=== PATIENT | female | born 1950 | race Caucasian/White ===

== ENCOUNTER 2017-10-13 18:07 | Inpatient (IN) | payer OTHER ==
[~2017-10-13] VITALS: Ht 154.9 cm; Wt 77.1 kg
[~2017-10-13 18:07] MED LIST: BENTYL10 M1 PO; FLUOCINONIDE15 G1 TOP; HYDROXYZINE HCL25 M3 PO; PERCOCET 5-3251 EACH PO; ZOFRAN ODT4 M1 SL
--- NOTE | 2017-10-13 22:05 | ED GI/GU/ABDOMINAL COMPLAINT ---
See Addendum History of Present Illness General Chief Complaint: Abdominal Pain/Flank Pain Stated Complaint: ABD PAIN Source: patient Exam Limitations: poor historian Vital Signs & Intake/Output Vital Signs & Intake/Output Vital Signs Date Time Temp Pulse Resp B/P B/P Pulse O2 O2 Flow FiO2 Mean Ox Delivery Rate 10/16 1340 98.0 90 16 132/88 97 Room Air 10/16 0946 97.3 79 20 140/80 10/16 0609 97.3 78 18 136/74 98 Room Air 10/16 0236 97.8 79 18 139/56 94 Room Air 10/15 2338 97.5 80 20 100/51 95 Room Air 10/15 2201 67 101/50 10/15 2122 97.4 67 17 101/50 96 Room Air Allergies Coded Allergies: Sulfa (Sulfonamide Antibiotics) (Severe, ANAPHYLAXIS 08/17/17) codeine (Severe, ANAPHYLAXIS 08/17/17) penicillin G (Severe, ANAPHYLAXIS 08/17/17) adhesive tape (RASH 10/13/17) haloperidol (From HALDOL) (THROAT CLOSES 10/13/17) Uncoded Allergies: NOVASC (RASH 10/13/17) Triage Note: PT TO ED C/O POOPING "MUSH" SINCE 01/19/17. HAS CHRONIC BACK AND LEFT ARM PAIN. 'I POOP MUSH EVERY DAYS" STATES SHOULD "LIKE HELP WITH HER BOWEL PAIN" "I'M RUINNING AROUND WITH LOOSE STOOLS RUNNING OUT OF ME ALL DAY AND ALL NIGHT" "I CAN'T SLEEP" PT STATES STOOLS ARE NOT WATERY Triage Nurses Notes Reviewed? yes ? N Is pt currently ? No Onset: Gradual Duration: week(s):, constant, continues in ED, getting worse Quality/Severity: aching, dullness, severe Location: BILATERAL LOWER ABD Radiation: no radiation Activities at Onset: none HPI: Patient presents for evaluation of bilateral lower abdominal pain that began months ago. Patient states that over the past 2 weeks she has lost control of her bowels having frequent mushy stools. She denies any associated fever, cold symptoms, vomiting or dysuria. She does admit to urinary frequency. She states she had a traumatic bowel rupture last year. She states that on one other occasion her bowels protruded through the front. (Carrie GUTIÉRREZ,Dain Patel) Reconcile Medications Dicyclomine Hydrochloride (Bentyl) 10 MG CAPSULE 1 CAP PO TID PRN pain Fluocinonide 0.05 % OINT...G. 1 MARGIE TOP BID psoriasis apply to affected area(s) Hydroxyzine HCl (hydrOXYzine HCl) 25 MG TABLET 1 TAB PO QPM PRN INSOMNIA Metoprolol Tartrate 50 MG TABLET 50 MG PO BID HTN (Reported) Nitrofurantoin Monohyd/M-Cryst (Macrobid 100 MG Capsule) 100 MG CAPSULE 1 CAP PO BID uti with food Ondansetron (Zofran Odt) 4 MG TAB.RAPDIS 1 TAB SL TID PRN nausea Oxycodone HCl/Acetaminophen (Percocet 5-325 MG Tablet) 5 MG-325 MG TABLET 1 TAB PO BID PRN pain (Omar Emmanuel MD) Past History Travel History Traveled to [place] past 21 day No Medical History Any Pertinent Medical History? 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 No (Carrie GUTIÉRREZ,Dain Patel) Review of Systems Review of Systems Constitutional: Reports: no symptoms. EENTM: Reports: no symptoms. Respiratory: Reports: no symptoms. Cardiovascular: Reports: no symptoms. GI: Reports: see HPI. Genitourinary: Reports: no symptoms. Musculoskeletal: Reports: no symptoms. Skin: Reports: no symptoms. Neurological/Psychological: Reports: no symptoms. Hematologic/Endocrine: Reports: no symptoms. Immunologic/Allergic: Reports: no symptoms. All Other Systems: Reviewed and Negative (Dain Butler MD) Physical Exam Physical Exam Gastrointestinal: SEE BELOW Comments: Gen.: Well-nourished, well-developed, no acute respiratory distress. Head: Normocephalic, atraumatic. Eyes: Normal inspection bilaterally Ears: Normal inspection bilaterally Nose: Normal inspection Throat/mouth : Moist mucosa Neck: Supple, full range of motion, no goiter Heart: Regular rate and rhythm, no murmurs rubs or gallops Lungs: Clear to auscultation bilaterally with normal air entry Chest: Nontender Back: Normal range of motion Abdomen: Soft, bilateral lower quadrant abdominal tenderness with brief voluntary guarding but no rebound, normal bowel sounds, no palpable masses Extremities: Normal range of motion grossly, equal radial pulses, no cyanosis clubbing or edema Neurologic: Cranial nerves grossly intact, speech is clear Skin: warm and dry Psychiatric: Calm, cooperative, no apparent delusions or hallucinations Core Measures ACS in differential dx? No Sepsis Present: No Sepsis Focused Exam Completed? No (Carrie GUTIÉRREZ,Dain Patel) Progress Differential Diagnosis: biliary colic, bowel obstruction, diverticulitis, inflamm bowel dis, kidney stone, pancreatitis, UTI/pyelo Plan of Care: Orders Procedure Date/time Status Vital Signs 10/16 170 Active Inpt Psych Teach/Educate 10/16 170 Active Nutritional Intake, Monitor 10/16 1706 Active Inpt Psych Auricular Acupunctu 10/16 1706 Active Admit to inpatient psych 10/16 1358 Active Lab Add-on Test 10/15 1749 Active TSH REFLEX 10/14 0906 Complete Intake & Output 10/13 2237 Complete Current Medications Sig/Hanna Start time Last Medication Dose Stop Time Status Admin Lorazepam 1 MG Q6P PRN 10/16 1715 AC (Ativan) Levothyroxine Sodium 0.05 MG DAILY AC 10/16 0700 AC 10/16 (Synthroid) 0621 Quetiapine Fumarate 100 MG QPM 10/15 2200 AC 10/15 (Seroquel) 2200 Morphine Sulfate 15 MG DAILY 10/15 1000 AC 10/16 (MSIR) 0946 Gabapentin 300 MG TID 10/15 0111 AC 10/16 (Neurontin) 1630 Divalproex Sodium 500 MG TID 10/15 0107 AC 10/16 (Depakote) 1631 Clonazepam 0.5 MG TID 10/15 0106 AC 10/16 (KlonoPIN) 10/22 0105 1630 Metoprolol Tartrate 50 MG BID 10/15 0058 AC 10/16 (Lopressor) 0946 Phenazopyridine HCl 100 MG Q8 10/14 0600 AC 10/14 (Pyridium) 1407 Acetaminophen 650 MG Q4P PRN 10/14 0215 AC (Tylenol) Nitrofurantoin 100 MG BID 10/14 0206 AC 10/14 (Macrodantin 50MG 1144 Cap) 6 PM PATIENT PLACED ON PEC (Etienne GUTIÉRREZ,Soni) Initial ED EKG: none Comments: 10/13/2017 11:26:26 PM patient 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 (Carrie GUTIÉRREZ,Dain Patel) Diagnostic Imaging: Viewed by Me: CT Scan. Discussed w/RAD: CT Scan. Radiology Impression: PATIENT: SOLANGE SHELTON PRESENT AGE: 67 PATIENT ACCOUNT NO: [id number] : 50 LOCATION: [facility] ORDERING PHYSICIAN: Dain Butler MD SERVICE DATE: 10/13/17 EXAM TYPE: CAT - CT ABD & PELVIS W IV CONTRAST EXAMINATION: CT ABDOMEN AND PELVIS WITH CONTRAST CLINICAL INFORMATION: Bilateral lower abdominal pain. Tenderness. COMPARISON: CT scan pelvis August 17, 2017 TECHNIQUE: Multidetector volumetric imaging was performed of the abdomen and pelvis following IV administration of 95 mL of Optiray 320 intravenous contrast. Sagittal and coronal reformatted images were obtained on the technologist's workstation. DLP: 830.66 mGy-cm FINDINGS: LUNG BASES: The visualized lung bases are unremarkable. LIVER, GALLBLADDER, AND BILIARY TREE: The liver is normal in size, shape, and attenuation. No focal hepatic lesion or biliary ductal dilatation is present. The gallbladder is unremarkable with no evidence of radiopaque gallstones, gallbladder wall thickening, or obvious pericholecystic inflammatory changes. PANCREAS: Unremarkable. SPLEEN: Unremarkable. ADRENAL GLANDS: Unremarkable. KIDNEYS AND URETERS: The kidneys are normal in size, shape, and attenuation. No hydronephrosis, hydroureter, or calculi seen. No perinephric stranding. BLADDER: Unremarkable. GASTROINTESTINAL TRACT: Is diverticulosis of the sigmoid left colon. No diverticulitis. No acute change of the bowel. No bowel obstruction. No bowel wall thickening or edema. Moderate volume of stool throughout the colon. The appendix is not identified. There is no inflammation of the mesentery. Small bowel loops are unremarkable. ABDOMINAL WALL: Small fat-containing bilateral inguinal hernias. LYMPH NODES: Normal. VASCULAR: Atherosclerotic vascular wall calcifications throughout the abdomen and pelvis. PELVIC VISCERA: Uterus is absent. No adnexal abnormality. OSSEOUS STRUCTURES: Degenerative spondylosis of spine with multilevel disc height narrowing and endplate spurring and facet joint arthrosis. Patient's had prior thoracoplasty of L1 L3 and L4. There is compression deformities at multiple levels, L5, L2, T9, T8 and T7 . IMPRESSION: No acute change. There is diverticulosis of colon but no evidence of diverticulitis. DICTATED BY: Adrian Del Rio MD DATE/TIME DICTATED:10/14/17105 LOBBY ATTENDANT:DONYA DATE/TIME TRANSCRIBED:10/14/17105 CONFIDENTIAL, DO NOT COPY WITHOUT APPROPRIATE AUTHORIZATION. <Electronically signed in Other Vendor System> SIGNED BY: Adrian Del Rio MD 10/14/17 0114 Hand-Off Endorsed To: Soni Clifton MD Endorsed Time: 699 Pending: consult (Robert Cristobal MD) Hand-Off Endorsed To: Omar Emmanuel MD Endorsed Time: 1899 Pending: other (BED SEARCH) (Soni Clifton MD) Hand-Off Endorsed To: Gucci Martinez MD Endorsed Time: 699 Pending: other (bed search) (Omar Emmanuel MD) Hand-Off Endorsed To: Dain Butler MD Endorsed Time: 1899 Pending: other (BED SEARCH) (Gucci Martinez MD) Departure Departure Disposition: STILL A PATIENT Condition: Stable Referrals: Elis GUTIÉRREZ,Ghulam Montana (PCP/Family) Departure Forms: Customer Survey General Discharge Information (Dain Butler MD) Departure Clinical Impression Primary Impression: Abdominal pain Secondary Impressions: Psychosis, UTI (urinary tract infection) Prescriptions: Current Visit Scripts Nitrofurantoin Monohyd/M-Cryst (Macrobid 100 MG Capsule) 1 CAP PO BID #14 CAP with food Comments 10/14/17, 2am... pt with benign labs/ct scan.... on my exam, mild tenderness suprapubically with equivocal urinalysis.... discussed at length with patient. she does not wish to leave, stating that she believes something is wrong..... 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 Will consult case management and crises for eval in AM. (Levar GUTIÉRREZ,Robert Medeiros) Departure Comments 10/16/17 The patient was signed out to me. She is pending evaluation by crisis. (Dain Martin DO)
[2017-10-13 22:39] LABS: ABSOLUTE BASOPHIL COUNT 0 /CUMM (0.0-0.2); ABSOLUTE EOSINOPHIL COUNT 0.2 /CUMM (0.0-0.7); ABSOLUTE GRANULOCYTE CT 4.2 /CUMM (1.4-6.5); ABSOLUTE MONOCYTE COUNT 0.7 /CUMM (0.10-0.60); BASOPHIL % 0.5 % (0.0-2.0); EOSINOPHIL % 1.9 % (0-5); GRANULOCYTE % 47.9 % (42.2-75.2); HEMATOCRIT 40.1 % (37-47); MEAN CORPUSCULAR HGB 28.4 PG (27.0-31.0); MEAN CORPUSCULAR HGB CONC 32.3 G/DL (33.0-37.0); MEAN CORPUSCULAR VOLUME 87.9 FL (81.0-99.0); MEAN PLATELET VOLUME 8.8 FL (7.4-10.4); PLATELET COUNT 167 /CUMM (130-400); RBC DISTRIBUTION WIDTH 15.5 % (11.5-14.5); RED BLOOD CELL CT 4.56 /CUMM (4.20-5.40); WHITE BLOOD CELL COUNT 8.8 /CUMM (4.8-10.8)
[2017-10-13 22:44] LABS: ABSOLUTE LYMPH COUNT 3.7 /CUMM (1.2-3.4)
--- NOTE | 2017-10-14 01:14 | CT SCAN REPORT ---
EXAMINATION: CT ABDOMEN AND PELVIS WITH CONTRAST CLINICAL INFORMATION: Bilateral lower abdominal pain. Tenderness. COMPARISON: CT scan pelvis August 17, 2017 TECHNIQUE: Multidetector volumetric imaging was performed of the abdomen and pelvis following IV administration of 95 mL of Optiray 320 intravenous contrast. Sagittal and coronal reformatted images were obtained on the technologist's workstation. DLP: 830.66 mGy-cm FINDINGS: LUNG BASES: The visualized lung bases are unremarkable. LIVER, GALLBLADDER, AND BILIARY TREE: The liver is normal in size, shape, and attenuation. No focal hepatic lesion or biliary ductal dilatation is present. The gallbladder is unremarkable with no evidence of radiopaque gallstones, gallbladder wall thickening, or obvious pericholecystic inflammatory changes. PANCREAS: Unremarkable. SPLEEN: Unremarkable. ADRENAL GLANDS: Unremarkable. KIDNEYS AND URETERS: The kidneys are normal in size, shape, and attenuation. No hydronephrosis, hydroureter, or calculi seen. No perinephric stranding. BLADDER: Unremarkable. GASTROINTESTINAL TRACT: Is diverticulosis of the sigmoid left colon. No diverticulitis. No acute change of the bowel. No bowel obstruction. No bowel wall thickening or edema. Moderate volume of stool throughout the colon. The appendix is not identified. There is no inflammation of the mesentery. Small bowel loops are unremarkable. ABDOMINAL WALL: Small fat-containing bilateral inguinal hernias. LYMPH NODES: Normal. VASCULAR: Atherosclerotic vascular wall calcifications throughout the abdomen and pelvis. PELVIC VISCERA: Uterus is absent. No adnexal abnormality. OSSEOUS STRUCTURES: Degenerative spondylosis of spine with multilevel disc height narrowing and endplate spurring and facet joint arthrosis. Patient's had prior thoracoplasty of L1 L3 and L4. There is compression deformities at multiple levels, L5, L2, T9, T8 and T7 . IMPRESSION: No acute change. There is diverticulosis of colon but no evidence of diverticulitis.
[2017-10-14] MEDS ORDERED: MACROBID 100 M100 MG PO (02:07)
--- NOTE | 2017-10-14 16:17 | ED PSYCH CRISIS CONSULTATION ---
See Addendum Crisis Consult Basic Assessment Date of Consult: 10/14/17 Responsible Person/Accompanied By: self Insurance Authorization: Insurance #1: Insurance name: MEDICARE [facility] HMO Phone number: Policy number: [id number] Group number: [id number] Authorization number: ED Provider: Patient's ED Provider: Soni Clifton MD Primary Care Physician: Patient's PCP: Elis GUTIÉRREZ,Ghulam Montana PCP's Current Psychiatrist: Released from [facility] on 10/12/17 Chief Complaint: Psychiatric Related Complaint Patient's Quote: "I'm hurting a lot. My Bowels are broken". Present Illness: Pt is a 67 year old white female presenting to the ED initially with GI complaints. Pt stated that she took a taxi here yesterday from her hotel room. Pt was referred for a crisis psychiatric consult given her delusional presentation. Clinician attempted to contact pt's listed Julian Vizcaino [phone]. However, the mailbox was full and was unable to leave a message. Clinician was able to reach Dr. Gillis, pt's listed PCP, for collateral. Dr. Gillis explained that he has not recently seen pt but was able to give information on her recent inpatient stay at [facility]. He stated that pt was released from [facility] on 10/12/17. He explained that while there pt was delusional, disorganized and had psychosomatic complaints. He stated that she was diagnosed with Acute Schizoaffective Disorder. Dr. Gillis stated that pt 's discharge plan included follow up at [facility] in [place]. He stated that her appointment was scheduled for 10/13/17 @ 11:15 am. This clinician was unable to secure any further collateral information. Upon evaluation pt complained that she was "hurting a lot". She repeatedly stated that her "bowels were broken". She also stated many other medical complaints, ie; spinal fusion, broken arm, broken vertebrae and loss of bowel control. Pt stated that she was recently to Julian. She stated they were two weeks ago and had not yet taken a honeymoon. She claimed they live in [place]. She was unable to explain as to why he wasn't here with her, but claimed he should be here soon "because he said he would". 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 She stated she plans to go back to school to learn how to perform heart surgery on babies. When asked, pt stated that she has had seven admissions at [facility] in the past two months. She claimed they kept putting her in the "psych oliva". Pt stated that she doesn't need psychiatric treatment claiming, "I am not schizophrenic". She explained that this past admission occurred after "the [facility] program called the ambulance on her". Pt was able to recall her medications and dosages. Pt stated that she is on Depakote and Klonopin for seizures. When asked about Seroquel she stated she would not take Seroquel. She claimed she didn't need it. Pt stated that at age 44 she had a serious suicide attempt. She stated that she had suffered the loss of her father and she felt unsupported by others in her grief. Pt stated that she overdosed on sleeping pills and hoped to . However she stated that she was saved by a family member and brought to the hospital. Pt denied any other suicidal attempts. Pt also denied any current suicidal or homicidal ideations. Pt denied any significant history of substance abuse or any history of treatment. Pt was alert and oriented. She was cooperative, polite and receptive with the evaluation. She had been irritable and dismissive earlier with the medical staff. Pt presents with psychosomatic complaints and delusional mentation. Pt ambulates slowly and complains of pain. She is articulate but an unreliable informant with disorganized thoughts. Given pt's mental status she is considered gravely disabled. Pt's current needs meet an inpatient level of care which is recommended at this time. We received a faxed [facility] discharge summary from Dr. Gillis's office. Patient's Address: [address] [place] [address] Other Phone Number: Who Do You Live With? Spouse (Pt claims she lives with hari) Family/Informants Interviewed: Dr Gillis Allergies - Coded Allergies: Sulfa (Sulfonamide Antibiotics) (Severe, ANAPHYLAXIS 08/17/17) codeine (Severe, ANAPHYLAXIS 08/17/17) penicillin G (Severe, ANAPHYLAXIS 08/17/17) adhesive tape (RASH 10/13/17) haloperidol (From HALDOL) (THROAT CLOSES 10/13/17) Uncoded Allergies: NOVASC (RASH 10/13/17) Laboratory Results: Laboratory Tests 10/14/17 0906: Serum Alcohol < 10.0 10/14/17 0015: Urinalysis HEAVY H, Urine Color YEL, Urine Clarity HAZY H, Urine pH 6.5, Ur Specific [place] 1.025, Urine Protein NEG, Urine Ketones NEG, Urine Nitrite NEG, Urine Bilirubin NEG, Urine Urobilinogen 0.2, Ur Leukocyte Esterase TRACE H, Ur Microscopic SEDIMENT EXAMINED, Urine RBC RARE, Urine WBC 10-15 H, Ur Epithelial Cells MOD H, Urine Bacteria MOD H, Urine Hemoglobin NEG, Urine Glucose NEG 10/13/17 2231: Anion Gap 12, Estimated GFR > 60, BUN/Creatinine Ratio 27.5 H, Glucose 90, Calcium 8.7, Total Bilirubin < 0.1 L, AST 23, ALT 22, Alkaline Phosphatase 56, Troponin I < 0.01, Total Protein 6.9, Albumin 3.8, Globulin 3.1, Albumin/ Globulin Ratio 1.2, Amylase 54, Lipase 90, CBC w Diff NO MAN DIFF REQ, RBC 4.56, MCV 87.9, MCH 28.4, MCHC 32.3 L, RDW 15.5 H, MPV 8.8, Gran % 47.9, Lymphocytes % 41.9, Monocytes % 7.8, Eosinophils % 1.9, Basophils % 0.5, Absolute Granulocytes 4.2, Absolute Lymphocytes 3.7 H, Absolute Monocytes 0.7 H, Absolute Eosinophils 0.2, Absolute Basophils 0 (Luis Bland LPC) Current Medications - Scheduled Medications Fluocinonide 0.05 % OINT...G. 1 MARGIE TOP BID psoriasis #60 GM Prescribed by Medardo Giron on 08/17/17 Metoprolol Tartrate 50 MG TABLET 50 MG PO BID HTN #60 (Reported) Entered as Reported by Castillo Ferguson on 10/15/17 0010 Nitrofurantoin Monohyd/M-Cryst (Macrobid 100 MG Capsule) 100 MG CAPSULE 1 CAP PO BID uti #14 CAP Prescribed by Cristóbal Cristobal MD on 10/14/17 Scheduled PRN Medications Dicyclomine Hydrochloride (Bentyl) 10 MG CAPSULE 1 CAP PO TID PRN pain #12 CAP Prescribed by Medardo Giron on 08/17/17 Hydroxyzine HCl (hydrOXYzine HCl) 25 MG TABLET 1 TAB PO QPM PRN INSOMNIA #10 TAB Prescribed by Medardo Giron on 08/17/17 Ondansetron (Zofran Odt) 4 MG TAB.RAPDIS 1 TAB SL TID PRN nausea #10 TAB Prescribed by Medardo Giron on 08/17/17 Oxycodone HCl/Acetaminophen (Percocet 5-325 MG Tablet) 5 MG-325 MG TABLET 1 TAB PO BID PRN pain #10 TAB Prescribed by Medardo Giron on 08/17/17 (Verito Corrigan LCSW) Past History Past Medical History Neurological: seizure EENT: NONE Cardiovascular: hypertension Respiratory: pneumonia Gastrointestinal: NONE Hepatic: NONE Renal: NONE Musculoskeletal: chronic back pain Psychiatric: NONE Endocrine: hypothyroidism Blood Disorders: HEP A & C 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 Physical Limitations (Interventions): Pt has multiple medical complaints and heightened pain. Psychiatric Treatment History Psych Treatment Psychiatric Treatment Yes Inpatient Treatment Yes Outpatient Treatment Yes (unknown history) Location of Treatment [facility] Reason for Treatment Psychosis/delusional mentation Dates of Treatment Multiple admissions in the past few months. Response to Treatment Poor response to treatment/noncompliant. Diagnosis by History: Schizoaffective Disorder Substance Use/Abuse History Drug Use/Abuse Substances Used/Abused No Substance Abuse Treatment Substance Abuse Treatment Past Substance Abuse [place] No Inpatient Treatment No Outpatient Treatment No (Luis Bland LPC) Current Mental Status Mental Status Orientation: Person, Place, Situation Affect: Euphoric Speech: Normal Neuro-vegetative: Concentration Poor Appearance Appearance- Dress/Hygiene: Pt dressed in hospital scrubs. Hygiene appears wnl. Behaviors Thought Process: Disorganized, Irrational Thought Content: Delusions, Grandiose, Somatic Memory: Impaired Insight: Poor SI/HI Risk Assessment Past Suicidal Ideation/Attempts Yes Current Suicidal Ideation/Att No Past Homicidal Ideation/Att: No Current Homicidal Ideation/Attempts No Degree of Intent: None Danger To: gravely disabled Gravely Disabled: Lack of Insight, Poor Impulse Control, Poor Judgment Risk Factors: age (under 24/over 65), chronic/serious med cond., history of suicide atmpts, SA/MH hospitalized, isolate/no social support, limited support Lethality Ratin PTSD Checklist PTSD Done? pt unable to participate ED Management Sitter: Yes Restraints: No (Edwina ARMIJO,Luis) DSM5/PS Stressors/Medical Prob Diagnosis' (DSM 5, Stressors, Medical): F29 Unspecified Schizophrenia Spectrum and other Psychotic Disorder Current GAF: 25 (Luis Bland LPC) Departure Disposition Psych Medical Clearance Date: 10/14/17 Medically Cleared at: 1300 Time Started: 1300 Time Ended: 1400 Psychiatrist Consulted: Robert Pelayo MD Date Disposition Established: 10/14/17 Time Disposition Established: 1600 Plan for Disposition - Modality: Bed Search Rationale for Disposition: Pt presenting with grandiose/somatic delusions. Poor informant. Multiple recent hospitalizations at [facility]. Poor response to treatment and noncompliant. Considered gravely disabled. Denied suicidal/homicidal ideations. Type of IP Admission: PEC Referrals Elis GUTIÉRREZ,Ghulam Montana (PCP/Family) (Edwina ALEKSANDERLuis) Addendum Addendum SW met with the patient for the morning evaluation. The patient was lying in bed , with an irritable mood and minimal eye contact. The patient states that she came to the ED, because she has, " a broken back and ruptured bowels." She is alert and oriented, stating she is at [facility] and that it is 2017. 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 She states that she has never had any previous mental health or substance abuse treatment. She presented very guarded and did not want to disclose any information to this bid writer. She ended the evaluation by saying, " we are not getting along and you are dismissed, turn off my light on your way out!." Case discussed with Dr. Pelayo and a Geriatric bed search has been started. (Meenu CAMPA,Verito)
[2017-10-15] MEDS ORDERED: METOPROLOL TART50 M1 PO (00:10)
--- NOTE | 2017-10-15 17:44 | ED PSYCHIATRIST/APRN CONSULT ---
See Addendum Psychiatrist/SUPERVISOR [employer]OPELLANT CHARGE LOADING ED Consult Assessment and Plan: demurrage worker's note reviewed. Case discussed with bottling room worker. The patient is a 67-year-old white woman with apparent psychotic disorder. She presented to the emergency room on 10/13/17. She was recently discharged from [facility]. Home medications per patient: Neurontin 300 mg 3 times daily Lopressor 50 mg twice daily Depakote 500 mg 3 times daily Klonopin 0.5 mg 3 times daily Synthroid 50 mcg daily. Past medical history: Neuropathy, hypothyroidism, hypertension, seizure disorder. Mental status examination: Patient seen at 5:20 PM. She is an overweight white woman dressed in [facility] paper scrubs. She just got out of the bathroom. She is sitting on her bed. She is mildly agitated. There is no psychomotor retardation. Speech is normal in volume, rate and tone. Affect is irritable. Patient states that she has 3 breaks in her back and her bowels are ruptured up and down. She complains of not receiving adequate or appropriate treatment, not receiving pain relief and states that the treatment here is very poor. 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 Describes mood as very upset. Rates sad mood and anxiety both 10/10. Feels hopeless, helpless and worthless. Denies feeling guilty. Denies suicidal and homicidal ideation. Denies auditory and visual hallucinations and paranoid ideation. Patient seems paranoid and grandiose. States "I've already taken this to a Federal level, I'm not schizophrenic or psychotic." Thought processes are goal-directed. Insight and judgment are poor. The patient is oriented 3. Cognition and memory are grossly intact. States that she is tired of being quizzed. States that she is sick and needs surgery and needs pain relief. IMPRESSION: Unspecified psychosis. The patient has expressed to staff that she does not feel she needs Seroquel. There is no bed available for the patient on [facility]. We continue to conduct a bed search. Patient continues to require inpatient level of care.
--- NOTE | 2017-10-16 14:17 | IP CRISIS DIAG ASSESS PSYCH ---
Diagnostic Assessment Basic Assessment Insurance Authorization: Insurance #1: [facility] Phone number: Policy number: [id number] Group number: [id number] Authorization number: [id number] approved 3 days 10/16-10/18 with review 10/19 youth career specialist Ivone [phone] ext [phone] Primary Care Physician: Patient's PCP: Elis GUTIÉRREZ,Ghulam [place] PCP's Patient's Quote: "I'm hurting a lot. My Bowels are broken". Present Illness: Pt is a 67 year old white female presenting to the ED initially with GI complaints. Pt stated that she took a taxi here yesterday from her hotel room. Pt was referred for a crisis psychiatric consult given her delusional presentation. Clinician attempted to contact pt's listed Julian Vizcaino [phone]. However, the mailbox was full and was unable to leave a message. Clinician was able to reach Dr. Gillis, pt's listed PCP, for collateral. Dr. Gillis explained that he has not recently seen pt but was able to give information on her recent inpatient stay at [facility]. He stated that pt was released from [facility] on 10/12/17. He explained that while there pt was delusional, disorganized and had psychosomatic complaints. He stated that she was diagnosed with Acute Schizoaffective Disorder. Dr. Gillis stated that pt 's discharge plan included follow up at [facility] in [place]. He stated that her appointment was scheduled for 10/13/17 @ 11:15 am. This clinician was unable to secure any further collateral information. Upon evaluation pt complained that she was "hurting a lot". She repeatedly stated that her "bowels were broken". She also stated many other medical complaints, ie; spinal fusion, broken arm, broken vertebrae and loss of bowel control. Pt stated that she was recently to Julian. She stated they were two weeks ago and had not yet taken a honeymoon. She claimed they live in [place]. She was unable to explain as to why he wasn't here with her, but claimed he should be here soon "because he said he would". 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 She stated she plans to go back to school to learn how to perform heart surgery on babies. When asked, pt stated that she has had seven admissions at [facility] in the past two months. She claimed they kept putting her in the "psych oliva". Pt stated that she doesn't need psychiatric treatment claiming, "I am not schizophrenic". She explained that this past admission occurred after "the [facility] program called the ambulance on her". Pt was able to recall her medications and dosages. Pt stated that she is on Depakote and Klonopin for seizures. When asked about Seroquel she stated she would not take Seroquel. She claimed she didn't need it. Pt stated that at age 44 she had a serious suicide attempt. She stated that she had suffered the loss of her father and she felt unsupported by others in her grief. Pt stated that she overdosed on sleeping pills and hoped to . However she stated that she was saved by a family member and brought to the hospital. Pt denied any other suicidal attempts. Pt also denied any current suicidal or homicidal ideations. Pt denied any significant history of substance abuse or any history of treatment. Pt was alert and oriented. She was cooperative, polite and receptive with the evaluation. She had been irritable and dismissive earlier with the medical staff. Pt presents with psychosomatic complaints and delusional mentation. Pt ambulates slowly and complains of pain. She is articulate but an unreliable informant with disorganized thoughts. Given pt's mental status she is considered gravely disabled. Pt's current needs meet an inpatient level of care which is recommended at this time. We received a faxed [facility] discharge summary from Dr. Gillis's office. Patient's Address: [address] [place] [address] Other Phone Number: Who Do You Live With? Spouse (Pt claims she lives with hari) Feel Safe Where You Live? Yes Feel Safe in Your Relationship Yes Marital Status: reports Do You Have Children? No Primary Language? Nigerien Language(s) Spoken At Home: Nigerien Family/Informants Interviewed: Dr Gillis Allergies - Coded Allergies: Sulfa (Sulfonamide Antibiotics) (Severe, ANAPHYLAXIS 08/17/17) codeine (Severe, ANAPHYLAXIS 08/17/17) penicillin G (Severe, ANAPHYLAXIS 08/17/17) adhesive tape (RASH 02/06/18) haloperidol (From HALDOL) (THROAT CLOSES 10/13/17) Uncoded Allergies: NOVASC (RASH 10/13/17) Current Medications - Scheduled Medications Fluocinonide 0.05 % OINT...G. 1 MARGIE TOP BID psoriasis #60 GM Prescribed by Medardo Giron on 08/17/17 Metoprolol Tartrate 50 MG TABLET 50 MG PO BID HTN #60 (Reported) Entered as Reported by Castillo Ferguson on 10/15/17 0010 Nitrofurantoin Monohyd/M-Cryst (Macrobid 100 MG Capsule) 100 MG CAPSULE 1 CAP PO BID uti #14 CAP Prescribed by Cristóbal Cristobal MD on 10/14/17 Scheduled PRN Medications Dicyclomine Hydrochloride (Bentyl) 10 MG CAPSULE 1 CAP PO TID PRN pain #12 CAP Prescribed by Medardo Giron on 08/17/17 Hydroxyzine HCl (hydrOXYzine HCl) 25 MG TABLET 1 TAB PO QPM PRN INSOMNIA #10 TAB Prescribed by Medardo Giron on 08/17/17 Ondansetron (Zofran Odt) 4 MG TAB.RAPDIS 1 TAB SL TID PRN nausea #10 TAB Prescribed by Medardo Giron on 08/17/17 Oxycodone HCl/Acetaminophen (Percocet 5-325 MG Tablet) 5 MG-325 MG TABLET 1 TAB PO BID PRN pain #10 TAB Prescribed by Medardo Giron on 08/17/17 Past History Past Surgical History Surgical History SPINAL SUGERY HYSTERECTOMY Abuse/Trauma History Trauma History/Current Trauma: unknown Psychosocial History Strengths/Capabilities: None identified. Physical Limitations (Interventions): Pt has multiple medical complaints and heightened pain. Psychiatric Treatment History Psych Treatment Psychiatric Treatment Yes Inpatient Treatment Yes Outpatient Treatment Yes (unknown history) Location of Treatment [facility] Reason for Treatment Psychosis/delusional mentation Dates of Treatment Multiple admissions in the past few months. Response to Treatment Poor response to treatment/noncompliant. Diagnosis by History: Schizoaffective Disorder Risk Factors: age (under 24/over 65), chronic/serious med cond., history of suicide atmpts, SA/MH hospitalized, isolate/no social support, limited support Substance Use/Abuse History Drug Use/Abuse minimum 12mo Hx Substances Used/Abused No Substance Abuse Treatment Substance Abuse Treatment Past Substance Abuse TX No Inpatient Treatment No Outpatient Treatment No Education History Highest Level of Education: unknown - pt unreliable director of casework. Preferred Learning Style: experiential Current Mental Status Mental Status Orientation: Person, Place, Situation Affect: Euphoric Speech: Normal Neuro-vegetative: Concentration Poor Appearance Appearance- Dress/Hygiene: Pt dressed in hospital scrubs. Hygiene appears wnl. Behaviors Thought Process: Disorganized, Irrational Thought Content: Delusions, Grandiose, Somatic Memory: Impaired Insight: Poor SI/HI Risk Assessment - Minimum 6mo History- Past Suicidal Ideation/Attempts Yes Current Suicidal Ideation/Att No Past Homicidal Ideation/Att: No Current Homicidal Ideation/Attempts No Degree of Intent: None Danger To: gravely disabled Gravely Disabled: Lack of Insight, Poor Impulse Control, Poor Judgment Risk Factors: age (under 24/over 65), chronic/serious med cond., history of suicide atmpts, SA/MH hospitalized, isolate/no social support, limited support Lethality Ratin Needs/Init TX Plan/Goals: Psychiatric evaluation medication assessment individual, group and family meeting coordinated discharge planning AUDIT-C Questionnaire: AUDIT-C Questionnaire: Response Value ETOH use in the past year Monthly or less 1 # drinks typical/day 1 or 2 0 6 or > drinks per occasion Never 0 Total 1 DSM5/PS Stressors/Medical Prob Diagnosis' (DSM 5, Stressors, Medical): F29 Unspecified Schizophrenia Spectrum and other Psychotic Disorder Current GAF: 25 Comments: Pt discharged from [facility] 10/12/17 to a hot following inpatient treatment beginning 09/17. Pt presented to [place] ED 10/13 with several somatic complaints including bowel pain. Pt presents as iritable and gravely delusional.
[2017-10-16 20:00] VITALS: BP 132/90
[2017-10-17 07:50] VITALS: BP 141/83
--- NOTE | 2017-10-17 09:09 | CPS PROVIDER INIT ASMT PSYCH ---
Psychiatric Admission Plug Saw Operator's Note Reviewed: Yes Patient Seen and Examined: Yes Identifying Information: 67 yo MWF with unspecified psychotic disorder with recent discharge from [facility] for similar presentation, presenting to ED on 10/13/2016. Chief Complaint: "My bowels are broken." Reaction to Hospitalization: in behavioral control, refusing most medications except antihypertensives and depakote, continuing psychosis, delusional thinking and grandiosity History of Present Illness Onset of Illness: recurrent with recent admission to [facility] for similar in September Circumstances Leading to Admission: Pt was d/c to hot, failed f/u to [facility], came to ED with unfounded complaints of "broken bowel and broken arm" expecting surgery. Problem(s) Justifying Need for Admission: Tray delusions and psychosis, gravely disabled. Other HPI: please see crisis SW and ED MD consults for full HPI Past Psychiatric History Past Diagnosis(es)- if any: Unknown Past Precipitating Factors- if any: Unknown - Include inpatient and outpatient treatment Treatment History: [facility] Geropsych unit, d/c 10/13/2017 History of Suicide Attempts or Gestures Denies Substance Abuse History: Denies Allergies: Coded Allergies: Sulfa (Sulfonamide Antibiotics) (Severe, ANAPHYLAXIS 08/17/17) codeine (Severe, ANAPHYLAXIS 08/17/17) penicillin G (Severe, ANAPHYLAXIS 08/17/17) adhesive tape (RASH 10/13/17) amlodipine (RASH 10/16/17) haloperidol (From HALDOL) (THROAT CLOSES 10/16/17) Home Med List: Neurontin 300 mg po tid Lopressor 50 mg po BID for HTN Depakote 500 mg po TID, pt reports for seizures Klonopin 0.5 mg po tid Synthroid 50 mcg po daily for hypothyroid - Include any medical condition(s) that may - impact the patient's recovery/remission Past Medical History: Seizure, HTN, PNA, chronic back pain Past History Medical History Neurological: seizure EENT: NONE Cardiovascular: hypertension Respiratory: pneumonia Gastrointestinal: NONE Hepatic: NONE Renal: NONE Musculoskeletal: chronic back pain Psychiatric: NONE Endocrine: hypothyroidism Blood Disorders: HEP A & C Cancer(s): CERVICAL CA 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 Legal: Unknown Other Social History: Unknown Healthly Behaviors Screening Tobacco Screening Tobacco Use from ED Docu: Current Daily Use Daily Tobacco Use Amount/Type: => 5 Cigarettes daily - If tobacco counseling indicated - the following topics are required. - #1 Recognizing dangerous situations. - #2 Coping Skills. - #3 Basic information about quitting. Status of Tobacco Cessation Counseling: Cognitive Impairment (delusions too intense to discu) Cessation Med Status Pt Refused Cessation Meds Alcohol Screening - ETOH screen POS if BAL >=80 or Audit-C>= M4/F3 Audit-C Score from Diag Assess: 1 Blood Alcohol Level: 0.00 Alcohol Use Screening Results: Neg per Audit C &/or BAL - If ETOH counseling indicated - the following topics are required. - #1 Express concern about the patient's - drinking at unhealthy levels, include informing - of national norms for moderate drinking: - men <= 14 drinks/week, max 4 drinks/occasion - women <= 7 drinks/week, max 3 drinks/occasion - #2 Providing feedback, including linking alcohol to - negative physical effects (liver injury, hypertension) - negative emotional effects (relationship problems and - depression) - negative occupational consequences (reduced work - performance) - #3 Advising the patient to abstain from alcohol or - to drink below national norms for moderate drinking - (as listed above). Status of ETOH Use Counseling: Cognitive Impairment Metabolic Screening - Screen if on a Neuroleptic Medication - Metabolic screening should include: - Blood Pressure, BMI, Glucose or Hgb A1c, & a - Lipid profile from within the past 365 days. Metabolic Screening () Not Applicable, patient not on a neuroleptic. OR () Patient on a neuroleptic(s) . Enter below results for Hemoglobin A1C, and lipid panel if obtained during the last 365 days. BMI: 32.100 Blood Pressure: 141/83 Laboratory Results From [facility] (If applicable): pending Exam and Plan Mental Status Examination Ambulation Status: gait stable Appearance: in paper scrubs alert, aware she is on psychiatric unit, unsure of location or date, walking stiffly due to back pain Attitude towards examiner: Pleasant but resistant Psychomotor activity: Walking stiffly, no tremor, tics, stereotypy Behavior: Lying in bed in room Quality of speech: Moderate rate, rhythm, fluent, normal prosody Affect: Pleasant but dismissive Mood: "Annoyed I don't know what I'm doing here, I'm supposed to have surgery in the morning" Suicidal Ideation: Denies Homicidal Ideation: Denies Hallucinations: Denies, no apparent internal preoccupation Paranoid/Delusional Material: Frankly delusional, with somatic delusions of broken bowel and broken arm, unclear if 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 However patient feels she does not need smoking cessation because "cancer was cured in 1948, 5 seconds of an MRI will kill cancer cells, so I don't need to worry about it ever again" Difficulties with thought organization: Tangential Insight: Poor Judgment: Poor, but remaining in behavioral control on unit Orientation: Oriented to self, Unsure of place or time Cognition: Clearly intelligent Memory Function: To impaired by delusions to fully assess, however able to remember her way around the unit Estimate of intellectual functioning: Greater than average Assets/Strengths Patient Identified Assets/Strengths: In behavioral control, able to express needs Impression/Plan Impression and Plan: 67 yo MWF with unspecified schizophrenic spectrum and other psychotic disorder with recent discharge from [facility] on 10/12 for similar presentation, presenting to [facility] ED on 10/13/2016 with somatic complaints of "bowels are broken" but frankly delusional. At this time patient remains too impaired to fully engage in interview, is dismissive but pleasant. Patient has been refusing medications except for antihypertensives and Depakote, which she considers a seizure medication. It is unclear if family members have been contacted, message left for patient's was met with a full voicemail inbox. If this is a chronic course resumption of medications should be helpful. However if this is a reasonably new onset of psychosis, one must consider other etiologies. Patient does appear to have UTI but is adamantly refusing nitrofurantoin. It is possible that presentation is related to medical delirium , however it does not appear the presentation waxes and wanes but remained stable. Collateral will be castillo in understanding patient's history and treatment course. - Include all active medical diagnosis that require tx DSM 5 Diagnosis(es): Unspecified schizophrenic spectrum and other psychotic disorder - Initial Tx Plan for Active Psych & Medical Conditions Treatment Plan: -Maintain safety,VS TID, q15 min checks -Continue meds, encourage antipsychotic nitrofurantoin -Follow-up additional labs -Regular diet -Individual, family, milieu, and group therapies -Obtain collateral from family and treaters -Patient refusing NRT, cessation counseled - Factors that would help patient function - in a less restrictive setting. Factors: Psychiatric stabilization, clearing of delusions, ability to maintain safety, safe housing, outpatient follow up
--- NOTE | 2017-10-17 13:24 | SOCIAL WORKER PROG NOTE PSYCH ---
Roopa Cardoza 10/17/17 1322: Social Work Progress Note Progress Note Crisis [employer] communications intern met with patient to complete psychosocial assessment. Pt presents nonsensical and unable to accurately report information. Pt unable to paticipate in assessment at this time.
[2017-10-17 16:04] VITALS: BP 149/86
--- NOTE | 2017-10-17 16:28 | History & Physical ---
General Information and HPI MD Statement: I have seen and personally examined SOLANGE SHELTON and documented this H&P. The patient is a 67 year old F who presented with a patient stated chief complaint of Delusions Source of Information: patient Exam Limitations: no limitations History of Present Illness: 67 y/o F with pmh sig for Neuropathy, hypothyroidism, hypertension, seizure disorder, schizoaffective disorder who is admitted to Inpatient Psychiatry with delusions. Patient claims that she is having back pain and abdominal pain because her back and bowels are broken. She had an accident years ago and she sort of healed but then it started to come back. She claims that she is in excruciating pain. 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 She said that she practices at [facility]. She currently denies any urinary complaints. I have reviewed her labs. Allergies/Medications Allergies: Coded Allergies: Sulfa (Sulfonamide Antibiotics) (Severe, ANAPHYLAXIS 08/17/17) codeine (Severe, ANAPHYLAXIS 08/17/17) penicillin G (Severe, ANAPHYLAXIS 08/17/17) adhesive tape (RASH 10/13/17) amlodipine (RASH 10/16/17) haloperidol (From HALDOL) (THROAT CLOSES 10/16/17) Home Med list Dicyclomine Hydrochloride (Bentyl) 10 MG CAPSULE 1 CAP PO TID PRN pain Fluocinonide 0.05 % OINT...G. 1 MARGIE TOP BID psoriasis apply to affected area(s) Hydroxyzine HCl (hydrOXYzine HCl) 25 MG TABLET 1 TAB PO QPM PRN INSOMNIA Metoprolol Tartrate 50 MG TABLET 50 MG PO BID HTN (Reported) Nitrofurantoin Monohyd/M-Cryst (Macrobid 100 MG Capsule) 100 MG CAPSULE 1 CAP PO BID uti with food Past History Travel History Traveled to [place] past 21 day No Medical History Neurological: seizure EENT: NONE Cardiovascular: hypertension Respiratory: pneumonia Gastrointestinal: NONE Hepatic: NONE Renal: NONE Musculoskeletal: chronic back pain Psychiatric: NONE Endocrine: hypothyroidism Blood Disorders: HEP A & C Cancer(s): CERVICAL CA 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 Psychosocial History ETOH Use: denies use Illicit Drug Use: denies illicit drug use Review of Systems Review of Systems Constitutional: Reports: see HPI. EENTM: Reports: see HPI. Cardiovascular: Reports: see HPI. Respiratory: Reports: see HPI. GI: Reports: see HPI. Musculoskeletal: Reports: see HPI. Neurological/Psychological: Reports: see HPI. Exam & Diagnostic Data Last 24 Hrs of Vital Signs/I&O Vital Signs Date Time Temp Pulse Resp B/P B/P Pulse O2 O2 Flow FiO2 Mean Ox Delivery Rate 10/17 1604 63 149/86 10/17 0827 98.9 78 16 141/83 10/17 0750 98.9 78 141/83 10/16 2153 98.4 86 16 132/90 10/16 2000 98.4 86 132/90 Intake & Output 10/17 1600 10/17 0800 10/17 0000 Intake Total Output Total Balance Patient 170 lb Weight Physical Exam General Appearance Alert, No Acute Distress Skin No Rashes Neck Supple Cardiovascular Regular Rate, Normal S1, Normal S2 Lungs Clear to Auscultation Abdomen Normal Bowel Sounds, Soft Neurological Cranial Nerves II through XII: Intact Last 24 Hrs of Labs/Aram: Labs from 10/13/17: Reviewed. Assessment/Plan Assessment: 67 y/o F with pmh sig for Neuropathy, hypothyroidism, hypertension, seizure disorder, schizoaffective disorder admitted to Inpatient Psychiatry with psychosis, delusional disorder. Continue beta wan for hypertension. Thyroid function is normal. I will leave the management off psychiatric. Currently patient on Depakote for history of seizure disorder. I also see that patient is on Macrodantin and Pyridium. She did not tell me anything about urinary complaints but if it is for recurrent UTI then this should be continued. Current urinalysis is not significant. As Ranked By This Provider Problem List: 1. Abdominal pain 2. Psychosis 3. Schizo-affective psychosis 4. Hypothyroidism Miscellaneous Miscellaneous Documentation Attending Case Discussed With: Tova Bain M.D. Primary Care Physician: Elis GUTIÉRREZ,Ghulam Montnaa Patient sees these Specialists unknown Level of Patient Care: GERSON Newsome
[2017-10-17 19:57] VITALS: BP 150/93
--- NOTE | 2017-10-18 00:07 | CP SOUTH PROGRESS NOTE PSYCH ---
See Addendum Psych (Inpt) Progress Note Progress Note PROGRESS NOTE SUBJECTIVE: Patient lying in bed, irritable. Reporting that she is in the "wrong department." Patient states that she is having pain from her "fractured C5 and T2" along with her "ruptured bowel." Patient asking to be transferred to [place] to the surgical unit. Patient also states she is getting her treatment from Dr. Martínez Carmona for the last 37 years. Patient states she is 72 years old, records show she 67 years old. Patient states she gets up in the morning having to "go and go and go" and when asked if she had diarrhea patient stated script writer wasnt a "very good doctor and clearly you don't know your stuff." Tub Washer again stated that was at their estate in [place] tending the horses. Knows her 's phone number but will not give it to script writer. She states she has children but will not give any other contact information. 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 You may be dismissed now." Patient was becoming increasingly agitated at this time and discontinued conversation. OBJECTIVE: Per nursing, pt did well overnight without any acute events but remained isolative. Patient has consistently only taken Synthroid, Klonopin, morphine, pyridium and metoprolol. Last night, she took nitrofurantoin for UTI for the first time in several days. VSS. Current Medications Sig/Hanna Start time Last Medication Dose Route Stop Time Status Admin Acetaminophen 650 MG Q4P PRN 10/14 0215 AC PO Clonazepam 0.5 MG TID 10/15 0106 AC 10/18 PO 10/22 0105 0809 Dicyclomine HCl 10 MG TID PRN 10/16 1730 AC PO Diphenhydramine HCl 25 MG Q6P PRN 10/16 1800 AC PO Diphenhydramine HCl 25 MG Q6P PRN 10/16 1800 AC IM Divalproex Sodium 500 MG TID 10/15 0107 AC 10/18 PO 08 Fluocinonide 1 MARGIE BID 10/16 2200 AC TOP Gabapentin 300 MG TID 10/15 0111 AC 10/18 PO 08 Hydroxyzine HCl 25 MG QPM PRN 10/16 1745 AC PO Levothyroxine Sodium 0.05 MG DAILY AC 10/16 0700 AC 10/18 PO 0704 Lorazepam 1 MG Q6P PRN 10/16 1800 AC PO Lorazepam 1 MG Q6P PRN 10/16 1715 AC IM Metoprolol Tartrate 50 MG BID 10/15 0058 AC 10/18 PO 0809 Morphine Sulfate 15 MG DAILY 10/15 1000 AC 10/18 PO 0809 Nitrofurantoin 100 MG BID 10/14 0206 DC 10/17 PO 2134 Olanzapine 5 MG Q6P PRN 10/16 1800 AC PO Olanzapine 5 MG Q6P PRN 10/16 1800 AC IM Phenazopyridine HCl 100 MG Q8 10/14 0600 AC 10/18 PO 07 Quetiapine Fumarate 100 MG QPM 10/15 2200 AC 10/15 PO 220 Vital Signs Date Time Temp Pulse Resp B/P B/P Pulse O2 O2 Flow FiO2 Mean Ox Delivery Rate 10/18 08 98.9 64 131/72 10/18 0755 98.9 64 131/72 10/17 2134 98.4 73 16 150/93 10/17 1957 98.4 73 150/93 10/17 1604 63 149/86 10/17 08 98.9 78 16 141/83 MSE: GENERAL: Alert and oriented x3, avoidant eye contact, appropriately groomed in hospital scrubs, irritable SPEECH: Moderate rate and volume, normal prosody, staccato MOTOR: No tics, tremors, stereotypy, or abnormal movements MOOD: "I'm in pain" AFFECT: Irritated, snarky, mood congruent, constricted range, mildly labile, poorly related THOUGHT PROCESS: Perseverative THOUGHT CONTENT: No SI/HI/AVH/SIB, +grandiosity, +paranoia, +delusions COGNITION: Impaired JUDGMENT: Poor INSIGHT: Poor ASSESSMENT: 67 yo MWF with unspecified schizophrenic spectrum and other psychotic disorder with recent discharge from [facility] on 10/12 for similar presentation, presenting to [facility] ED on 10/13/2016 with somatic complaints of "bowels are broken" but frankly delusional. At this time patient remains too impaired to fully engage in interview, is dismissive but pleasant. Patient has been refusing medications except for antihypertensives and Depakote, which she considers a seizure medication. It is unclear if family members have been contacted, message left for patient's was met with a full voicemail inbox. If this is a chronic course resumption of medications should be helpful. However if this is a reasonably new onset of psychosis, one must consider other etiologies. Patient does appear to have UTI but is refusing nitrofurantoin up until last night. It is possible that presentation is related to medical delirium, however it does not appear the presentation waxes and wanes but remained stable. Collateral will be castillo in understanding patient's history and treatment course. Today, patient remains isolated in bed, angry and irritable, picking and choosing which medication she will take however did take nitrofurantoin last night. Will renew for full five-day course of antibiotic. DSM 5 Diagnosis(es): Unspecified schizophrenic spectrum and other psychotic disorder r/o Delirium Treatment Plan: -Maintain safety,VS TID, q15 min checks -Continue meds, encourage antipsychotic -reordered nitrofurantoin until 2/16 am dose for 5 day course (if she continues to take it) -TSH wnl -Regular diet -Obtain collateral from family and treaters -Patient refusing NRT d/t delusional beliefs about cancer, cessation counseled
[2017-10-18 07:55] VITALS: BP 131/72
[2017-10-18 12:16] VITALS: BP 128/67
[2017-10-18 16:02] VITALS: BP 148/75
[2017-10-18 20:09] VITALS: BP 151/72
[2017-10-19 07:52] VITALS: BP 130/69
[2017-10-19 12:07] VITALS: BP 132/80
--- NOTE | 2017-10-19 13:20 | SOCIAL WORKER PROG NOTE PSYCH ---
Social Work Progress Note Progress Note Falguni was in bed, but got up when prompted to meet. She reports she is in pain and that her neck, back, and bowels hurt. She shared that she came to the ER because her bowels are ruptured and she has a broken back and a broken arm. She doesn't believe that she needs to be on the inpatient psych unit and should be on the medical floor. She shared that she had been at [facility] in the past 2 months and that they keep admitting her to the psych unit. 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 I asked if she has been given that dx in the past? She said "there is no such thing." She stated that she lived in [place] for 22 years and came to [place] this past May. I asked if she had family in [place]? She said she does, but they don't want anything to do with her. When asked who Julian Vizcaino was? She said he was an old friend, but not her . He is listed as her on her face sheet. She said her is Ron Song and that he lives in [place]. She reported that she was recently to him a couple of weeks ago. I asked if she would sign a release for him? She said that he didn' t need to be involved. She also stated that he had visited her over the weekend , but I don't believe this to be factual. There were no noted visitors for her over the weekend. Darnell stated that she used to have a home in [place], but she left it to a grandson. She said if she were to be discharged she would go back to [place]. After her stays at [facility] inpatient she said she had been in motels and had a stay [facility]. She reports no SI/HI, no AH/ VH, denies depression or anxiety. She is clearly delusional. 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 She presented as calm, cooperative, oriented to time and place. Called [facility] and left a clinical update for continued stay [phone] ext. [phone].
--- NOTE | 2017-10-19 14:34 | CP SOUTH PROGRESS NOTE PSYCH ---
See Addendum Psych (Inpt) Progress Note Progress Note Include the following elements, when applicable: Involvement in the active treatment of the patient with behavioral observations of the patient and the patient's response to the treatment. Review of the ongoing treatment process in the context of the treatment plan. Indication of how multi-disciplinary staff members are carrying out the treatment plan. Plans for future interventions and recommendations for revision of the treatment plan. Liaison with other physicians/providers. Progress Note: Dr. Jackson's notes reviewed. Case and treatment plan discussed in team meeting. Staff reports that the patient remains delusional. I reviewed discharge summary from approximately 09/24/17 from [facility] written by Dr. Jd Valente. At the time of patient 's discharge, she was not offering spontaneous delusional material. She was taking Seroquel when she left [facility]. Patient seen this morning around 11:45 AM. She reported that the date of reported in the chart, 50 is a "false date." Claims she was given the wrong date at . Reports her real date is [birth year]. States she feels "not bad." Also reports being in a lot of pain. Reports she suffers from chronic pain and reports that her bowels are ruptured and claims that morphine 15 mg does not touch her. Reports she was prescribed this by Dr. Leon. Reports that Timothy Pulido MD had her on methadone. Patient reports that Dr. Pulido was her professor and she was his only resident thereafter. Affect is calm and euthymic. Rates pain 7.5/10. Reports she has pain at C5 and T7 due to fractures, reports she has a left arm fracture and has pain at L3-4. Rates sad mood 2/10 and anxiety 0/10. Denies feeling hopeless, helpless, worthless or guilty. Denies active and passive suicidal ideation. Denies homicidal ideation. Denies auditory and visual hallucinations and paranoid ideation. Patient is oriented 3 except she gives the date as 10/18/17. Reports sleep is very poor. Appetite and energy are described as fine. It sounds as though the patient has an affected [place]er accent. Reports she was born in [place] and that her ancestors were [place]. Patient is not willing to take Seroquel or any other antipsychotic. She states "I'm not psychotic, I'm federal GRACIE, psych MD." States she is not schizophrenic or psychotic and that there is no such thing as bipolar disorder, "it's just a label." IMPRESSION: Slow progress. Continue present treatment plan. Continues to require inpatient level of care. We need to ascertain whether the patient is homeless or not. Patient seems to be chronically delusional and may be approaching maximum hospital benefit and usual baseline. Continue Depakote as written. I have ordered a Depakote level, glycohemoglobin and lipid panel for tomorrow morning.
[2017-10-19 16:27] VITALS: BP 139/88
--- NOTE | 2017-10-19 19:44 | SOCIAL WORKER SOCIAL HX PSYCH ---
Social History Basic Assessment Insurance Authorization: Insurance #1: Insurance name: [facility] Phone number: Policy number: [id number] Group number: [id number] Authorization number: Primary Care Physician: Patient's PCP: Ghulam Gillis MD PCP's Present Problem: Pt is a 67 year old white female presenting to the ED initially with GI complaints. Pt stated that she took a taxi here yesterday from her hotel room. Pt was referred for a crisis psychiatric consult given her delusional presentation. Clinician attempted to contact pt's listed Julian Vizcaino [phone]. However, the mailbox was full and was unable to leave a message. Clinician was able to reach Dr. Gillis, pt's listed PCP, for collateral. Dr. Gillis explained that he has not recently seen pt but was able to give information on her recent inpatient stay at [facility]. He stated that pt was released from [facility] on 10/12/17. He explained that while there pt was delusional, disorganized and had psychosomatic complaints. He stated that she was diagnosed with Acute Schizoaffective Disorder. Dr. Gillis stated that pt 's discharge plan included follow up at [facility] in [place]. He stated that her appointment was scheduled for 10/13/17 @ 11:15 am. This clinician was unable to secure any further collateral information. Upon evaluation pt complained that she was "hurting a lot". She repeatedly stated that her "bowels were broken". She also stated many other medical complaints, ie; spinal fusion, broken arm, broken vertebrae and loss of bowel control. Pt stated that she was recently to Julian. She stated they were two weeks ago and had not yet taken a honeymoon. She claimed they live in [place]. She was unable to explain as to why he wasn't here with her, but claimed he should be here soon "because he said he would". 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 She stated she plans to go back to school to learn how to perform heart surgery on babies. When asked, pt stated that she has had seven admissions at [facility] in the past two months. She claimed they kept putting her in the "psych oliva". Pt stated that she doesn't need psychiatric treatment claiming, "I am not schizophrenic". She explained that this past admission occurred after "the [facility] called the ambulance on her". Pt was able to recall her medications and dosages. Pt stated that she is on Depakote and Klonopin for seizures. When asked about Seroquel she stated she would not take Seroquel. She claimed she didn't need it. Pt stated that at age 44 she had a serious suicide attempt. She stated that she had suffered the loss of her father and she felt unsupported by others in her grief. Pt stated that she overdosed on sleeping pills and hoped to . However she stated that she was saved by a family member and brought to the hospital. Pt denied any other suicidal attempts. Pt also denied any current suicidal or homicidal ideations. Pt denied any significant history of substance abuse or any history of treatment. Pt was alert and oriented. She was cooperative, polite and receptive with the evaluation. She had been irritable and dismissive earlier with the medical staff. Pt presents with psychosomatic complaints and delusional mentation. Pt ambulates slowly and complains of pain. She is articulate but an unreliable informant with disorganized thoughts. Given pt's mental status she is considered gravely disabled. Pt's current needs meet an inpatient level of care which is recommended at this time. Primary Language? Mauritanian Language(s) Spoken At Home: Mauritanian Living Situation Other Living Arrangement: no residence (living in a hotel) Feel Safe Where You Are Living Yes Feel Safe in Relationships? Yes Comments: pt discharged last week from [facility] after one month inpatient hospitalization to reside in a hotel. Pt reports she is recently but unable to provide accurate contact information to speak with her spouse. Allergies - Coded Allergies: Sulfa (Sulfonamide Antibiotics) (Severe, ANAPHYLAXIS 08/17/17) codeine (Severe, ANAPHYLAXIS 08/17/17) penicillin G (Severe, ANAPHYLAXIS 08/17/17) adhesive tape (RASH 10/13/17) amlodipine (RASH 10/16/17) haloperidol (From HALDOL) (THROAT CLOSES 10/16/17) Current Medications - Scheduled Medications Fluocinonide 0.05 % OINT...G. 1 MARGIE TOP BID psoriasis #60 GM Prescribed by Medardo Giron on 08/17/17 Metoprolol Tartrate 50 MG TABLET 50 MG PO BID HTN #60 (Reported) Entered as Reported by Castillo Ferguson on 10/15/17 0010 Nitrofurantoin Monohyd/M-Cryst (Macrobid 100 MG Capsule) 100 MG CAPSULE 1 CAP PO BID uti #14 CAP Prescribed by Cristóbal Cristobal MD on 10/14/17 Scheduled PRN Medications Dicyclomine Hydrochloride (Bentyl) 10 MG CAPSULE 1 CAP PO TID PRN pain #12 CAP Prescribed by Medardo Giron on 08/17/17 Hydroxyzine HCl (hydrOXYzine HCl) 25 MG TABLET 1 TAB PO QPM PRN INSOMNIA #10 TAB Prescribed by Medardo Giron on 08/17/17 Discontinued Medications Ondansetron (Zofran Odt) 4 MG TAB.RAPDIS 1 TAB SL TID PRN nausea #10 TAB Discontinued reason: Per Doctor Decision Oxycodone HCl/Acetaminophen (Percocet 5-325 MG Tablet) 5 MG-325 MG TABLET 1 TAB PO BID PRN pain #10 TAB Discontinued reason: Changed to different med Past History Past Medical History Neurological: seizure EENT: NONE Cardiovascular: hypertension Respiratory: pneumonia Gastrointestinal: NONE Hepatic: NONE Renal: NONE Musculoskeletal: chronic back pain Psychiatric: NONE Endocrine: hypothyroidism Blood Disorders: HEP A & C Cancer(s): CERVICAL CA 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 Physical Limitations (Interventions): Pt has multiple medical complaints and heightened pain. Psychiatric Treatment History Psych Treatment Inpatient Treatment Yes Outpatient Treatment Yes (unknown history) Location of Treatment [facility] Reason for Treatment Psychosis/delusional mentation Dates of Treatment Multiple admissions in the past few months. Response to Treatment Poor response to treatment/noncompliant. 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 Preferred Learning Style: experiential History Have You Been in The ? No Current Mental Status Mental Status Orientation: Person, Place, Situation Affect: Euphoric Speech: Normal Neuro-vegetative: Concentration Poor Appearance Appearance- Dress/Hygiene: Pt dressed in hospital scrubs. Hygiene appears wnl. Behaviors Thought Process: Disorganized, Irrational Thought Content: Delusions, Grandiose, Somatic Memory: Impaired Insight: Poor SI/HI Risk Assessment Past Suicidal Ideation/Attempts Yes Current Suicidal Ideation/Att No Past Homicidal Ideation/Att: No Current Homicidal Ideation/Attempts No Degree of Intent: None Danger To: gravely disabled Gravely Disabled: Lack of Insight, Poor Impulse Control, Poor Judgment Lethality Ratin - Conclusion and Recommendations for treatment - and discharge planning Summary: Pt currently presenting with profound delusional though process. Provided information appears to be highly unreliable. Once pt is more stable further attempt will be made to gather accurate history.
[2017-10-19 19:55] VITALS: BP 161/70
[2017-10-20 07:36] VITALS: BP 142/81
--- NOTE | 2017-10-20 10:35 | SOCIAL WORKER PROG NOTE PSYCH ---
Social Work Progress Note Progress Note Pt indicated she was to Julian, and that she wouldn't give us his phone number, but she told him to call, and she signed a release. Pt reports pain is an obstacle for her to joining groups, she was laying in bed when we met, she reports feeling tired. She reported same delusions as spoken to Claudia yesterday about being a "psych MD, GRACIE", and how her and Dr. Aguirre are very "important men, working for [employer]". I asked how can I help her today,a nd she offered "you can let me leave hospital", I informed as soon as we can coordinate with her we could prepare for her to leave the hospital, I encouragd her to provide us with his phone number.
[2017-10-20 12:01] VITALS: BP 167/85
--- NOTE | 2017-10-20 12:59 | CP SOUTH PROGRESS NOTE PSYCH ---
Psych (Inpt) Progress Note Progress Note Include the following elements, when applicable: Involvement in the active treatment of the patient with behavioral observations of the patient and the patient's response to the treatment. Review of the ongoing treatment process in the context of the treatment plan. Indication of how multi-disciplinary staff members are carrying out the treatment plan. Plans for future interventions and recommendations for revision of the treatment plan. Liaison with other physicians/providers. Progress Note: Case and treatment plan discussed in team meeting. Staff reports that patient has been observed talking to herself. Depakote level is 73.4. Patient seen at 10:27 AM. She was resting in bed but got up to me with me in office. States "well, I'm always in a lot of pain." Has no other concerns. Eager for discharge. States she plans to live in [place] or [place]. Claims to have homes in [facility] and [place], even though she was living in a hotel. States that "is [employer]." Reports she will call her and have him call us to arrange a couple's meeting. Affect is calm and euthymic. Reports mood is fine. Denies suicidal and homicidal ideation. Denies auditory and visual hallucinations and paranoid ideation. Reports she did not sleep well because her bed is atrocious. Reports appetite is very good. Energy is fine. Tolerating current medications but states she wants the correct pain medication. 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 She refuses recommendation to resume Seroquel, stating that she does need it. Patient has elevated lipids and hemoglobin A1c. Hospitalist was contacted. IMPRESSION: Slow progress. Continue present treatment plan. I suspect that the patient has approached baseline. It seems that she remains delusional. We will try to arrange a couple's meeting and outpatient follow-up. Anticipate likely discharge before the weekend.
[2017-10-20 15:42] VITALS: BP 138/76
[2017-10-20 19:54] VITALS: BP 128/67
[2017-10-21 08:08] VITALS: BP 138/84
--- NOTE | 2017-10-21 10:35 | CP SOUTH PROGRESS NOTE PSYCH ---
Psych (Inpt) Progress Note Progress Note Include the following elements, when applicable: Involvement in the active treatment of the patient with behavioral observations of the patient and the patient's response to the treatment. Review of the ongoing treatment process in the context of the treatment plan. Indication of how multi-disciplinary staff members are carrying out the treatment plan. Plans for future interventions and recommendations for revision of the treatment plan. Liaison with other physicians/providers. Progress Note: Case and treatment plan discussed in team meeting. Staff reports that the patient talks to herself. She has not been spontaneously verbalizing delusional material. Spends time in her room. Not going to groups. Reporting chronic back pain. Patient seen at 10:06 AM. She was resting in bed but got up to meet with me in office. Reports her back hurts. States she spoke with her but he said to her that she is not to give out his number. She reports that he is too important. She states that he "is" [employer] [place]. States she has 29 biologic children and 2 stepchildren. Reports her children live in [place], [place], [place], [place] and [place]. I asked her what she does for financial support and she reports she has a trust fund with many zillions of dollars. Also reports having a pension and Social Security. 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 Affect is calm and euthymic. Reports mood is just fine. Rates sad mood and anxiety both 0/10. Denies feeling hopeless, helpless, worthless or guilty. Denies suicidal and homicidal ideation. Denies auditory and visual hallucinations and paranoid ideation. Remains grandiose, as above. Reports she slept very well last night because she has a new room and a new bed. Appetite is very good. Energy is described as "very good, thank you." Reports tolerating medications but states that her pain medication is not correct. She refused to take any psychotropics except Depakote, which she states she needs for seizure disorder. Patient states she will sign release of information forms for Drs. Valente and Ashok. IMPRESSION: Slow progress. Continue present treatment plan. Remains delusional but pleasant. Refuses to take antipsychotic medication. We would like to speak with any collaterals about arranging a safe discharge plan.
--- NOTE | 2017-10-21 11:21 | SOCIAL WORKER PROG NOTE PSYCH ---
Social Work Progress Note Progress Note Called the phone number that was listed under Julian's () name on the facesheet. I only got a phone that had her voicemail. Met with Falguni in her room at bedside. She continues to complain of feeling pain. When asked where she says " my C5, T7, and my arm is broken." I asked her if she was willing to sign a release for the doctor that treated her at [place] and Dr. Timothy Hyatt (psychiatrist). She said she would sign and that she is signing in her "real name, not her fake one." I asked what her real name was ? She said Falguni Valerio. She ended up signing the release with this other name and gave a different - [birth year]. I asked when her name had changed? She said 24 years ago. When she stated someone was after her family. I acknowledged that she signed the release for Julian yesterday, but again reiterated that we needed a number to reach him. She said he is busy "providing insurance to the world" and she can't give out his number. She offered to have him call me and took my phone number. She said she should be speaking with him soon. Called [facility] and gave updated clinical. Review is on 10/23. Insurance does not believe that she is .
[2017-10-21 12:08] VITALS: BP 134/78
[2017-10-21 15:47] VITALS: BP 140/70
[2017-10-21 18:59] VITALS: BP 135/78
[2017-10-22 07:39] VITALS: BP 145/80
[2017-10-22 12:10] VITALS: BP 113/72
--- NOTE | 2017-10-22 13:06 | CP SOUTH PROGRESS NOTE PSYCH ---
Psych (Inpt) Progress Note Progress Note Include the following elements, when applicable: Involvement in the active treatment of the patient with behavioral observations of the patient and the patient's response to the treatment. Review of the ongoing treatment process in the context of the treatment plan. Indication of how multi-disciplinary staff members are carrying out the treatment plan. Plans for future interventions and recommendations for revision of the treatment plan. Liaison with other physicians/providers. Progress Note: Case and treatment plan discussed in team meeting. Staff reports that the patient holds constant conversations with herself. Frequently lies in bed talking to self. Hospitalist started atorvastatin. Often refusing macrodantin. Patient seen at 11:46 a.m. Was resting in bed prior to meeting with me in office. Claims her whole body hurts (back, arm, ankle). Reports that mentally she is doing just fine. I advised patient that she has no safe discharge plan and that we will pursue probabate commitment to a state hospital and LITIGATION EXAMINER/E + med power for conservator, unless she is willing to do these voluntarily. She isn' t. I renewed Klonopin 0.5 mg t.i.d., which . IMPRESSION: Remains pleasantly psychotic with very poor insight and judgment, rendering her gravely disabled. When I told her of our planned court filings, patient responded "I will take you to court and own you." Also stated she was firing me as her doctor.
--- NOTE | 2017-10-22 14:07 | SOCIAL WORKER PROG NOTE PSYCH ---
Social Work Progress Note Progress Note [employer] met with Falguni today in her room. She laid in bed for the duration of the conversation and made minimal eye contact with field underwriter. She reported to be feeling "not as happy as I usually am" and that she was in pain. She reported that that her childrens' attitudes were the source of her distress as they are "disrespectful, abrasive, and abusing their bodies that I gave to them". She stated that she has one grandchild from her "many" children, who is not a disappointment to her as he was [employer] validictorian, holds national records in swimming and is going to the [employer]. She stated that she raised this grandchild for the first 4 years of his life with vargas Judah Mckeon. She stated that she is no longer with Mr. Mckeon and that she has a who lives in the [place] area whose name is Julian Luo. 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 Combat Control asked her how she performs this monumental task. Falguni stated that she works for the [employer] and that she is working on getting everyone substance abuse care and coverage. Additionally, she stated that she would like to be transferred directly to [facility] so that she can get her back operated on. Falguni identified a Dr. Martínez Iglesias and his son, Will Iglesias as her orthopedic surgeons at [place]. She also stated that she would like a more comfortable bed.
[2017-10-22 15:49] VITALS: BP 120/64
[2017-10-22 19:50] VITALS: BP 135/82
[2017-10-23 07:57] VITALS: BP 130/62
--- NOTE | 2017-10-23 10:29 | CP SOUTH PROGRESS NOTE PSYCH ---
Psych (Inpt) Progress Note Progress Note Include the following elements, when applicable: Involvement in the active treatment of the patient with behavioral observations of the patient and the patient's response to the treatment. Review of the ongoing treatment process in the context of the treatment plan. Indication of how multi-disciplinary staff members are carrying out the treatment plan. Plans for future interventions and recommendations for revision of the treatment plan. Liaison with other physicians/providers. Progress Note: Case and treatment plan discussed in team meeting. Staff reports that the patient comes out of her room for meals and spends more time out on the unit in the evening. Showers rarely. I renewed morphine 15 mg po daily order, which had . Patient seen at 10:24 a.m. She was resting in bed, dressed in blue paper scrubs. Stated "I'm not well. I've told you everything. My back is broken and I prefer not to be disturbed." IMPRESSION: Slow progress. Continue present treatment plan. Patient does not have a safe discharge plan and remains gravely disabled. We will be filing for probate commitment to a state hospital and for conservatorship hearing, including medication power for conservator.
[2017-10-23 11:55] VITALS: BP 126/48
--- NOTE | 2017-10-23 13:10 | SOCIAL WORKER PROG NOTE PSYCH ---
Social Work Progress Note Progress Note Starting the process to file for involuntary commitment. All paperwork will most likely need to be submitted on Thursday, due to court being closed Thursday due to the holiday. Approached Falguni this morning, who was lying in bed. I asked if we could talk ? She said she did not want to speak to me. When asked why? She said "I'm in too much pain." I asked if I could relay some things to her? She said she would rather not right now. Called [facility] [phone]. [phone] and left updated clinical.
[2017-10-23 15:46] VITALS: BP 129/72
[2017-10-23 19:54] VITALS: BP 138/65
[2017-10-24 08:24] VITALS: BP 170/62
--- NOTE | 2017-10-24 11:22 | CP SOUTH PROGRESS NOTE PSYCH ---
Psych (Inpt) Progress Note Progress Note Include the following elements, when applicable: Involvement in the active treatment of the patient with behavioral observations of the patient and the patient's response to the treatment. Review of the ongoing treatment process in the context of the treatment plan. Indication of how multi-disciplinary staff members are carrying out the treatment plan. Plans for future interventions and recommendations for revision of the treatment plan. Liaison with other physicians/providers. Progress Note: Pt very upset this morning. She feels that she is not being treated well as the bed is uncomfortable. She spoke at length about wanting to be transferrred to [place] and not needing psychiatric care. She requested pain meds but then stated, "they don't work." Declined lidocaine patch for back pain. 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 Also, quite adamant that it is 10/21 and today is Thursday, "I'm not crazy." Denies SI or HI. Current Medications Sig/Hanna Start time Last Medication Dose Route Stop Time Status Admin Acetaminophen 650 MG Q4P PRN 10/14 0215 AC PO Atorvastatin Calcium 20 MG 1700 10/20 1700 AC 10/23 PO 1627 Clonazepam 0.5 MG TID 10/22 1600 AC 10/24 PO 10/29 1559 0854 Dicyclomine HCl 10 MG TID PRN 10/16 1730 AC PO Diphenhydramine HCl 25 MG Q6P PRN 10/16 1800 AC PO Diphenhydramine HCl 25 MG Q6P PRN 10/16 1800 AC IM Divalproex Sodium 500 MG TID 10/15 0107 AC 10/24 PO 0855 Fluocinonide 1 MARGIE BID 10/16 2200 AC TOP Gabapentin 300 MG TID 10/15 0111 AC 10/24 PO 0854 Hydroxyzine HCl 25 MG QPM PRN 10/16 1745 AC PO Levothyroxine Sodium 0.05 MG DAILY AC 10/16 0700 AC 10/24 PO 0733 Lorazepam 1 MG Q6P PRN 10/16 1800 DC PO Lorazepam 1 MG Q6P PRN 10/16 1715 DC IM Metoprolol Tartrate 50 MG BID 10/15 0058 AC 10/24 PO 0855 Morphine Sulfate 15 MG DAILY 10/24 1000 AC 10/24 PO 0854 Olanzapine 5 MG Q6P PRN 10/16 1800 AC PO Olanzapine 5 MG Q6P PRN 10/16 1800 AC IM Phenazopyridine HCl 100 MG Q8 10/14 0600 AC 10/18 PO 0704 Quetiapine Fumarate 100 MG QPM 10/15 2200 AC 10/15 PO 2200 Vital Signs Date Time Temp Pulse Resp B/P B/P Pulse O2 O2 Flow FiO2 Mean Ox Delivery Rate 10/24 0755 96.2 47 16 17062 10/24 0824 96.2 47 170/62 10/237 98.4 63 16 138/65 10/23 1954 98.4 63 138/65 10/23 1546 56 129/72 10/23 1155 52 126/48 MSE General appearance: poor hygiene and grooming; Attitude: uncooperative; Eye contact: none made; Movement: + psychomotor agitation ; Speech: nl fluency, nl rate/rhythm, nl volume, nl prosody; Mood: "upset!!!!" Affect: extremely, irritable, flat, appropriate, constricted, non-labile, congruent; Thought process: disorganized; Thought content: denied SI or HI, ++ paranoid ideation, ++ delusions; Perception: denied hallucinations- auditory, visual, does not appear to be responding to internal stimuli; I/J: very poor A/P: Pt with schizoaffective disorder with marked paranoia and delusions with limited medication compliance and not insight. - pt refused any med changes -Continue current medication regimen -Encourage integration into the milieu
[2017-10-24 12:08] VITALS: BP 168/69
[2017-10-24 15:52] VITALS: BP 133/70
[2017-10-24 19:42] VITALS: BP 144/79
[2017-10-25 08:03] VITALS: BP 134/77
[2017-10-25 11:58] VITALS: BP 120/72
--- NOTE | 2017-10-25 13:13 | CP SOUTH PROGRESS NOTE PSYCH ---
Psych (Inpt) Progress Note Progress Note Include the following elements, when applicable: Involvement in the active treatment of the patient with behavioral observations of the patient and the patient's response to the treatment. Review of the ongoing treatment process in the context of the treatment plan. Indication of how multi-disciplinary staff members are carrying out the treatment plan. Plans for future interventions and recommendations for revision of the treatment plan. Liaison with other physicians/providers. 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 Denies SI or HI. Current Medications Sig/Hanna Start time Last Medication Dose Route Stop Time Status Admin Acetaminophen 650 MG Q4P PRN 10/14 0215 AC PO Atorvastatin Calcium 20 MG 1700 10/20 1700 AC 10/24 PO 1706 Clonazepam 0.5 MG TID 10/22 1600 AC 10/25 PO 10/29 1559 0837 Dicyclomine HCl 10 MG TID PRN 10/16 1730 AC PO Diphenhydramine HCl 25 MG Q6P PRN 10/16 1800 AC PO Diphenhydramine HCl 25 MG Q6P PRN 10/16 1800 AC IM Divalproex Sodium 500 MG TID 10/15 0107 AC 10/25 PO 0837 Fluocinonide 1 MARGIE BID 10/16 2200 AC TOP Gabapentin 300 MG TID 10/15 0111 AC 10/25 PO 0837 Hydroxyzine HCl 25 MG QPM PRN 10/16 1745 AC PO Levothyroxine Sodium 0.05 MG DAILY AC 10/16 0700 AC 10/25 PO 0704 Metoprolol Tartrate 50 MG BID 10/15 0058 AC 10/25 PO 0837 Morphine Sulfate 15 MG DAILY 10/24 1000 AC 10/25 PO 0837 Olanzapine 5 MG Q6P PRN 10/16 1800 AC PO Olanzapine 5 MG Q6P PRN 10/16 1800 AC IM Phenazopyridine HCl 100 MG Q8 10/14 0600 AC 10/18 PO 0704 Quetiapine Fumarate 100 MG QPM 10/15 2200 AC 10/15 PO 2200 Vital Signs Date Time Temp Pulse Resp B/P B/P Pulse O2 O2 Flow FiO2 Mean Ox Delivery Rate 10/25 1158 53 120/72 10/25 0837 50 134/77 10/25 0803 96.7 50 134/77 10/24 2128 98.3 60 16 144/79 10/24 1941 98.3 60 144/79 10/24 1552 55 133/70 MSE General appearance: poor hygiene and grooming; Attitude: uncooperative; Eye contact: none made; Movement: + psychomotor agitation ; Speech: nl fluency, nl rate/rhythm, nl volume, nl prosody; Mood: "upset!!!!" Affect: extremely, irritable, flat, appropriate, constricted, non-labile, congruent; Thought process: disorganized; Thought content: denied SI or HI, ++ paranoid ideation, ++ delusions; Perception: denied hallucinations- auditory, visual, does not appear to be responding to internal stimuli; I/J: very poor A/P: Pt with schizoaffective disorder with marked paranoia and delusions with limited medication compliance and no insight. - Increased seroquel to 200mg qhs -Continue current medication regimen -Encourage integration into the milieu
[2017-10-25 15:28] VITALS: BP 138/84
[2017-10-25 20:08] VITALS: BP 122/67
[2017-10-26 08:15] VITALS: BP 133/74
[2017-10-26 12:00] VITALS: BP 141/67
--- NOTE | 2017-10-26 13:12 | SOCIAL WORKER PROG NOTE PSYCH ---
See Addendum Social Work Progress Note Progress Note Falguni was in her room applying lotion to her face. Asked how her weekend was? She said "it was long and boring." She stated she was hoping to leave soon. I reminded her that we were filing for an involuntary commitment hearing and that she wouldn't be leaving anytime soon. She stated "I've already been through this." She said it has happened in [place] and here. I asked if she has a watch manufacturing supervisor? She said yes. I asked who that was? She said "Nam Santana " I reiterated again if she needed a watch manufacturing supervisor one would be assigned to her from court. She got frustrated with my comment and stated again that she had a watch manufacturing supervisor and that I wasn't listening to her. She then stated she was done and didn't need my help. She then politely told me to leave her alone now and to close the door behind me. Received a voicemail that [facility] approved authorization from 10/23-10/26 with khadijah on 10/26. Called [employer] [phone] and left updated clinical for review today.
--- NOTE | 2017-10-26 14:46 | CP SOUTH PROGRESS NOTE PSYCH ---
Psych (Inpt) Progress Note Progress Note Include the following elements, when applicable: Involvement in the active treatment of the patient with behavioral observations of the patient and the patient's response to the treatment. Review of the ongoing treatment process in the context of the treatment plan. Indication of how multi-disciplinary staff members are carrying out the treatment plan. Plans for future interventions and recommendations for revision of the treatment plan. Liaison with other physicians/providers. Progress Note: Dr. Mcpherson's notes reviewed. Case and treatment plan discussed in team meeting. Staff reports that the patient appears unchanged. Seems to respond to internal stimuli. Isolates in her room. Refusing Seroquel. Patient seen at 10:28 AM. She was resting in her room but got up to me with me in office. Reports she is not feeling well, stating that her back is broken and her bowels are ruptured as always. She found the weekend to have been very boring and long. Affect is calm and blunted. Reports mood is fine. Denies suicidal and homicidal ideation. Denies auditory and visual hallucinations and paranoid ideation. Plans to continue to refuse Seroquel, stating that it is not necessary. She claims that it gives her nightmares. She is requesting Restoril 30 mg but I informed her that this is not indicated. IMPRESSION: Slow progress. Continue present treatment plan. We are pursuing probate commitment to a state hospital, hearing for conservatorship of person and estate as well as medication power for conservator of person. I have ordered a Depakote level for tomorrow morning.
--- NOTE | 2017-10-26 15:05 | IP INCIDENTAL NOTE PSYCH ---
Incidental Note Notation: E-mails without PHI sent to Drs. Valente and Ashok requesting calls to discuss case.
[2017-10-26 15:48] VITALS: BP 134/63
--- NOTE | 2017-10-26 16:39 | IP INCIDENTAL NOTE PSYCH ---
Incidental Note Notation: Case discussed with Dr. Valente.
[2017-10-26 19:53] VITALS: BP 111/68
[2017-10-27 07:48] VITALS: BP 119/57
--- NOTE | 2017-10-27 10:35 | SOCIAL WORKER PROG NOTE PSYCH ---
Social Work Progress Note Progress Note Spoke with Indira Bojorquez at [place] this morning. Informed her paperwork will be submitted for involuntary commitment today. Also shared that we will be filing for conservatorship and with med power. She is under the impression that the med power can't be filed until the day of the conservatorship hearing. Falguni remains isolative in her room. Approached her this morning to ask how she is doing? She said "I don't want to talk." She said she was feeling "horrible" but didn't elaborate on what was going on with her. She laid flat on her back in bed and stated she would like me to leave. I told her if she had a concern or question about anything she could let me know. I then left the room.
--- NOTE | 2017-10-27 11:23 | CP SOUTH PROGRESS NOTE PSYCH ---
Psych (Inpt) Progress Note Progress Note Include the following elements, when applicable: Involvement in the active treatment of the patient with behavioral observations of the patient and the patient's response to the treatment. Review of the ongoing treatment process in the context of the treatment plan. Indication of how multi-disciplinary staff members are carrying out the treatment plan. Plans for future interventions and recommendations for revision of the treatment plan. Liaison with other physicians/providers. Progress Note: Case and treatment plan discussed in team meeting. Lab Valproic Acid 68.7 ug/mL 10/27/17 0630 Patient seen at 10:42 AM. She was resting in bed. Appearing awake and alert. Refused to meet with me, stating she never would do so. She is aware that we are filing for probate commitment and conservatorship hearings. She made an obscure reference to the fact that she has already been the federal court. Dr. Rosangela Pulido called me back and reported having no recollection of this patient. IMPRESSION: Slow progress. Continue present treatment plan. I completed physician's evaluation for application to court for appointment of a conservator of person and estate. Patient continues to refuse Seroquel, ordered at 200 mg nightly.
[2017-10-27 12:23] VITALS: BP 124/53
--- NOTE | 2017-10-27 13:18 | IP INCIDENTAL NOTE PSYCH ---
Incidental Note Notation: Dr. Pulido called me. He has no recollection of this patient.
[2017-10-27 15:30] VITALS: BP 127/67
[2017-10-27 19:55] VITALS: BP 142/74
[2017-10-28 07:40] VITALS: BP 142/82
--- NOTE | 2017-10-28 10:37 | CP SOUTH PROGRESS NOTE PSYCH ---
Psych (Inpt) Progress Note Progress Note Include the following elements, when applicable: Involvement in the active treatment of the patient with behavioral observations of the patient and the patient's response to the treatment. Review of the ongoing treatment process in the context of the treatment plan. Indication of how multi-disciplinary staff members are carrying out the treatment plan. Plans for future interventions and recommendations for revision of the treatment plan. Liaison with other physicians/providers. Progress Note: Case and treatment plan discussed in team meeting. Staff reports that the patient essentially spends all her time in her room. Refusing pyridium and Seroquel. Patient seen at 10:04 a.m. Refused group when staff inquired. Stated "I won't speak to you either. You are excused and fired." IMPRESSION: Slow progress. Continue present treatment plan. We are pursuing probate commitment to a state hospital and appointment of a RIB BUILDER/E + med power for RIB BUILDER. Continues to have poor insight and judgment and remains gravely disabled. Continues to require inpatient level of care.
--- NOTE | 2017-10-28 10:57 | SOCIAL WORKER PROG NOTE PSYCH ---
Social Work Progress Note Progress Note Babbitt Spinner attempted to meet with Falguni today in her room. Falguni stated that she did not want to talk and that she wished to be left alone. Babbitt Spinner asked patient if there was anything that she needed, to which Falguni replied "I need to be discharged". Babbitt Spinner stated that she would come back later during the afternoon to check on Falguni. Falguni stated, "Don't bother, I'm going to be the same, which is awful. I just want to be discharged."
[2017-10-28 11:57] VITALS: BP 135/64
--- NOTE | 2017-10-28 14:53 | SOCIAL WORKER PROG NOTE PSYCH ---
Social Work Progress Note Progress Note The came to serve Falguni paperwork regarding the involuntary commitment hearing. I told Falguni that the digital media associate was here to give her information about the court hearing. She said she was not getting up and she didn't care what he had to say. She refused to leave her bed. I informed the digital media associate, who then decided to give me the paperwork. I told Falguni that her court hearing was scheduled for 11/05 at 10:30. She said ok and then proceeded to ask me if I had a cigarette? I told her I don't smoke. She said "Ok, please leave and shut the door."
[2017-10-28 15:36] VITALS: BP 143/83
[2017-10-28 21:07] VITALS: BP 143/68
[2017-10-29 00:54] VITALS: BP 137/82
[2017-10-29 11:08] VITALS: BP 118/55
--- NOTE | 2017-10-29 11:30 | SOCIAL WORKER PROG NOTE PSYCH ---
Social Work Progress Note Progress Note Paperwork for conservator of person and estate was completed and brought to the mailroom to be delivered to [facility] Court today. Talked to Indira Bojorquez at [facility] she said she would probably end up having the hearing for the week of .
[2017-10-29 11:54] VITALS: BP 118/55
--- NOTE | 2017-10-29 12:01 | RADIOLOGY REPORT ---
EXAMINATION: XR HUMERUS, LEFT CLINICAL INFORMATION: Status post fall with pain in the left humerus. COMPARISON: There are no prior studies for comparison. TECHNIQUE: AP and lateral views of the left humerus. FINDINGS: The imaging is suboptimal with underpenetration which could obscure small or subtle cortical defects. The glenohumeral and acromioclavicular alignment appear to be maintained. The alignment of the elbow joint is suboptimally visualized, however no evidence of subluxation is noted. The proximal portion of the forearm is not well evaluated. No cortical defects are noted throughout the left humerus to suggest acute fracture. IMPRESSION: No radiographic evidence of acute fracture is is noted at this time, throughout the left humerus.
--- NOTE | 2017-10-29 14:18 | Event Note ---
Event Note Event Note: I was called to evaluate the patient because she was complaining of pain in her left arm after she fell. Nursing staff concern if she has any broken bone. X- ray of the left humerus was ordered which is negative for any fracture. I went in to see the patient but she completely refused to be seen. She did not allow me to examine her left arm. She does not believe that x-rays telling the truth. Patient did not allow me to examine her at this time.
--- NOTE | 2017-10-29 14:43 | SOCIAL WORKER PROG NOTE PSYCH ---
Social Work Progress Note Progress Note Basin Tender called [facility] ext. [phone] and left updated clinical for review today. Basin Tender attempted to meet with Falguni but was sent away as she did not wish to speak with procedure writer. Update: Willa from [employer] called back and authorized Falguni's stay through November 01. The review will be due on Thursday, 11/02. Marcela from [employer] will be taking over the case for Willa and will call Claudia Byrd on Thursday for the review. The confirmation number is: [id number].
--- NOTE | 2017-10-29 14:57 | CP SOUTH PROGRESS NOTE PSYCH ---
Psych (Inpt) Progress Note Progress Note Include the following elements, when applicable: Involvement in the active treatment of the patient with behavioral observations of the patient and the patient's response to the treatment. Review of the ongoing treatment process in the context of the treatment plan. Indication of how multi-disciplinary staff members are carrying out the treatment plan. Plans for future interventions and recommendations for revision of the treatment plan. Liaison with other physicians/providers. Progress Note: Case and treatment plan discussed in team meeting. Patient's probate commitment hearing is scheduled for 11/05/17 at 10:30 AM. Patient reportedly fell during the night. She was incontinent of urine. She refuses to participate in her treatment here. Patient seen at 10:25 AM. States she feels terrible. She is resting in bed. States she broke her left arm last night. Reports she fell over. Also reports she broke C5 and T4. "Broke it all and I need to get out here." Claims she needs Dilaudid 4 mg she wants discharge. Affect is irritable and angry. Stated to me that I was excused and fired and then called me an ae. Arm x-ray was done today and was reported to be negative. IMPRESSION: Slow progress. Continue present treatment plan. Await outcome of probate commitment hearing 11/05/17. Patient remains delusional. She has poor insight and judgment and remains gravely disabled. Await conservatorship hearings as well.
[2017-10-29 16:17] VITALS: BP 138/58
[2017-10-29 22:25] VITALS: BP 144/71
[2017-10-30 10:05] VITALS: BP 150/80
--- NOTE | 2017-10-30 10:29 | SOCIAL WORKER PROG NOTE PSYCH ---
Social Work Progress Note Progress Note Falguni was laying in bed at 10am. I asked how her arm was and told her that I heard she had an x-ray yesterday. She said that her arm is "fractured in 12 places." I told her that the x-ray didn't indicated a fracture, but I was sorry that her arm was hurting her. She said she is tired of being in this dump of a hospital and that no one is listening to her. I asked where she would go if she were to leave? She said she would go to [place] or [place]. 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 She then asked me to stop talking to her. Called Vicky Hand at [facility] and left a message in regards to Falguni.
--- NOTE | 2017-10-30 13:52 | CP SOUTH PROGRESS NOTE PSYCH ---
Psych (Inpt) Progress Note Progress Note Include the following elements, when applicable: Involvement in the active treatment of the patient with behavioral observations of the patient and the patient's response to the treatment. Review of the ongoing treatment process in the context of the treatment plan. Indication of how multi-disciplinary staff members are carrying out the treatment plan. Plans for future interventions and recommendations for revision of the treatment plan. Liaison with other physicians/providers. Progress Note: Case and treatment plan discussed in team meeting. Staff reports that the patient can be quite rude to staff. Described as irritable. Whereas arm x-ray was negative, patient reportedly is convinced that she broke her arm in 12 places and that we are lying to her. Patient seen at 10:27 AM. She was resting or sleeping in her room. She said "get out of here, leave me alone." Affect is irritable. Insight and judgment remain poor. IMPRESSION: Slow progress. Continue present treatment plan. Remains gravely disabled. Probate commitment hearing is scheduled for 11/05/17 at 10:30 AM. We have filed application for conservatorship of person and estate and also medication power for conservator.
[2017-10-30 15:50] VITALS: BP 149/90
[2017-10-30 20:02] VITALS: BP 122/57
[2017-10-31 07:55] VITALS: BP 136/94
--- NOTE | 2017-10-31 10:38 | CP SOUTH PROGRESS NOTE PSYCH ---
Psych (Inpt) Progress Note Progress Note Include the following elements, when applicable: Involvement in the active treatment of the patient with behavioral observations of the patient and the patient's response to the treatment. Review of the ongoing treatment process in the context of the treatment plan. Indication of how multi-disciplinary staff members are carrying out the treatment plan. Plans for future interventions and recommendations for revision of the treatment plan. Liaison with other physicians/providers. Progress Note: Chart reviewed. Progress discussed with nursing staff. Interviewed patient this morning in her room. Consistent with my reading of previous notes, she was perseverative on arm pain, stating that she had broken her arm in multiple places. She also notes that she had "ruptured bowels ". I attempted to reassure her that there was no suggestion of any acute medical problems, she replied that she required "Dilaudid 4 mg IV with saline, or methadone 60 mg daily ". I informed her that I would be unable to provide her these doses of medications, to which she replied "then I have no further use for you and you are dismissed". She did however state she had no suicidal or homicidal ideation. Vital signs were reviewed and are within normal limits. No new laboratory results today. Mental status exam: female older than apparent stated age resting comfortably on hospital bed. Poor eye contact. Positive psychomotor slowing. No abnormal movements noted. Speech was quiet, otherwise within normal limits. Mood was "I'm in pain ". Affect was constricted, irritable. Thought process was perseverative. Content focused on pain and somatic complaints. Denies SI or HI. Denies perceptual disturbances. Cognition was grossly intact. Insight and judgment are limited. A/P: Continues to make slow progress. Continue present treatment plan. Remains gravely disabled. Probate commitment hearing is scheduled for 11/05/17 at 10:30 AM. We have filed application for conservatorship of person and estate and also medication power for conservator.
[2017-10-31 12:28] VITALS: BP 135/58
[2017-10-31 16:00] VITALS: BP 137/37
[2017-10-31 21:17] VITALS: BP 141/67
[2017-11-01 12:02] VITALS: BP 132/53
--- NOTE | 2017-11-01 12:30 | CP SOUTH PROGRESS NOTE PSYCH ---
Psych (Inpt) Progress Note Progress Note Include the following elements, when applicable: Involvement in the active treatment of the patient with behavioral observations of the patient and the patient's response to the treatment. Review of the ongoing treatment process in the context of the treatment plan. Indication of how multi-disciplinary staff members are carrying out the treatment plan. Plans for future interventions and recommendations for revision of the treatment plan. Liaison with other physicians/providers. Progress Note: Chart reviewed. Progress discussed with nursing staff. Interviewed patient this morning in her room. Increasingly pleasant compared to yesterday, however remains quite densely delusional. Remains fixated on her arm "being broken and 12 places ", as well as "ruptured bowels". I attempted to work with her to state that I would like to control her pain from her arm, however, there is no indication that her arm is actually fractured. She was unable to work with this information, and kindly asked me to leave. She denied any other concerns, and denies SI or HI. Vital signs were reviewed and are within normal limits. No new laboratory results today. Mental status exam: female older than apparent stated age resting comfortably on hospital bed. Poor eye contact. Positive psychomotor slowing. No abnormal movements noted. Speech was quiet, otherwise within normal limits. Mood was "my arm still hurts ". Affect was constricted, irritable. Thought process was perseverative. Content focused on pain and somatic complaints. Positive somatic delusions. Denies SI or HI. Denies perceptual disturbances. Cognition was grossly intact. Insight and judgment are limited. A/P: Continues to make slow progress. Delusions remain prominent. Continue present treatment plan. Remains gravely disabled. Probate commitment hearing is scheduled for 11/05/17 at 10:30 AM. We have filed application for conservatorship of person and estate and also medication power for conservator.
[2017-11-01 15:56] VITALS: BP 139/72
[2017-11-01 19:50] VITALS: BP 144/53
[2017-11-02 07:38] VITALS: BP 116/65
[2017-11-02 12:06] VITALS: BP 130/84
--- NOTE | 2017-11-02 12:58 | SOCIAL WORKER PROG NOTE PSYCH ---
Social Work Progress Note Progress Note Received a call from Susan at [facility] that she is covering for Willa. She gave 2 additional days with review due back with Willa on 11/04/16. Saw Falguni in her room around 3:40pm. I told her it was nice to see her around the unit a little more today. Asked why she didn't go to group? She said she doesn't go to art group. Asked how she was doing and how he weekend was? She said "it was boring as usual." She then stated she wanted to leave. I told her we have the hearing on 11/05. She said she wasn't having a hearing and that she was discharging today. She went to say that she had sued and won. She then thanked me and basically politely excused me from her room.
--- NOTE | 2017-11-02 13:49 | CP SOUTH PROGRESS NOTE PSYCH ---
Psych (Inpt) Progress Note Progress Note Include the following elements, when applicable: Involvement in the active treatment of the patient with behavioral observations of the patient and the patient's response to the treatment. Review of the ongoing treatment process in the context of the treatment plan. Indication of how multi-disciplinary staff members are carrying out the treatment plan. Plans for future interventions and recommendations for revision of the treatment plan. Liaison with other physicians/providers. Progress Note: Dr. Wasserman' notes reviewed. Case and treatment plan discussed in team meeting. Staff reports that the patient seems a little better. Came out of her room for medications. Ate. Refuses Seroquel, Lidex and pyridium. Reports pain 10/10 at "broken arm" and neck. Patient seen at 1:01 pm. Patient was sitting quietly by the fish tank. Dressed in blue paper scrubs. I asked if she would meet with me and she responded "about what?" I answered that I am her doctor and she replied "but you're not a doctor." Later came to office and stated she is ready to go. I reminded her about hearings and she replied "there is no hearing." IMPRESSION: Slow progress. Continue present treatment plan. Remains gravely disabled. Awaiting hearings.
[2017-11-02 16:13] VITALS: BP 140/76
[2017-11-03 07:50] VITALS: BP 164/77
--- NOTE | 2017-11-03 10:44 | SOCIAL WORKER PROG NOTE PSYCH ---
Social Work Progress Note Progress Note Falguni was laying in be around 10:30am. Refused to get up and be on the unit. Asked again if there is anyone she would like me to reach out to? She said no. I asked if she had children? She said "I have many." I asked if they lived around here? She said no. I asked again can I reach out to someone for her? She said "I have no one." She then said "I just want to go home." I asked where home was? She said "[place]." She then asked me to leave. Encouraged her to spend time on the unit. Called [place] [facility]. Requested the doctor's independent evaluations for the upcoming hearing on 11/05. Both were faxed to me. They both indicate that she is gravely disabled. One evaluation indicates that she is also a danger to herself and others.
--- NOTE | 2017-11-03 11:45 | CP SOUTH PROGRESS NOTE PSYCH ---
Psych (Inpt) Progress Note Progress Note Include the following elements, when applicable: Involvement in the active treatment of the patient with behavioral observations of the patient and the patient's response to the treatment. Review of the ongoing treatment process in the context of the treatment plan. Indication of how multi-disciplinary staff members are carrying out the treatment plan. Plans for future interventions and recommendations for revision of the treatment plan. Liaison with other physicians/providers. Progress Note: Case and treatment plan discussed in team meeting. Staff reports that the patient is a little more visible in the milieu. Refuses groups. Still isolates in her room. Patient seen at 10:14 AM. She was asleep in bed. Stated "I'm not well." She is dismissive, stating "I don't want to talk to you." IMPRESSION: Slow progress. Continue present treatment plan. Probate commitment hearing is scheduled for 11/05/17 at 10:30 AM. We are awaiting scheduling of conservatorship hearings. The patient remains gravely disabled and is not able to function independently in the community.
[2017-11-03 11:50] VITALS: BP 132/71
[2017-11-03 16:05] VITALS: BP 140/72
[2017-11-03 20:02] VITALS: BP 139/67
[2017-11-03 21:32] VITALS: BP 136/67
[2017-11-04 08:18] VITALS: BP 171/94
--- NOTE | 2017-11-04 10:36 | SOCIAL WORKER PROG NOTE PSYCH ---
Social Work Progress Note Progress Note Falguni was seen coming out of the bathroom this morning seen carrying her toothbrush and hair was wet and combed back. We talked about the hearing tomorrow. She continues to say it's unnessecary and that she has already won. I told her that her painting department supervisor will be meeting with her prior to the hearing. She stated she already has an painting department supervisor "Nam Santana Jr." I reiterated again, that the hearing is 10:30am tomorrow and she will have an painting department supervisor that will see her. She told me that we are all being sued, every single one of us. Called Willa at [facility] to leave updated clinical.
[2017-11-04 11:57] VITALS: BP 127/51
[2017-11-04 15:46] VITALS: BP 124/92
--- NOTE | 2017-11-04 15:49 | CP SOUTH PROGRESS NOTE PSYCH ---
Psych (Inpt) Progress Note Progress Note Include the following elements, when applicable: Involvement in the active treatment of the patient with behavioral observations of the patient and the patient's response to the treatment. Review of the ongoing treatment process in the context of the treatment plan. Indication of how multi-disciplinary staff members are carrying out the treatment plan. Plans for future interventions and recommendations for revision of the treatment plan. Liaison with other physicians/providers. Progress Note: Case and treatment plan meeting. According to staff, patient reports having broken bones. Isolative and withdrawn. Rarely showers. Patient seen at 11:04 AM. She was resting in bed. She was willing to be interviewed today. Feels bored. Mood: "I'm bored." Rates sad mood and anxiety both 0/10. Denies feeling hopeless, helpless, worthless or guilty. Denies suicidal and homicidal ideation. Denies auditory and visual hallucinations and paranoid ideation. Reports sleep is all right. Describes appetite and energy as fine. I asked how she is tolerating her medications, and she responded that she is in pain and she claims she is not receiving the correct pain medication. She is aware of probate commitment hearing scheduled for tomorrow. States that she has secured as accounts adjustable clerk Nam Santana Jr. and his father, Nam Santana. When I addressed her as John, she responded that she is Dr. Shaw. IMPRESSION: Slow progress. Continue present treatment plan. Patient remains gravely disabled. In my opinion, the patient's grave disability renders her unable to give informed consent about psychiatric medication. We are pursuing a hearing for medication power for conservator, once a conservator is appointed.
[2017-11-04 21:12] VITALS: BP 164/72
[2017-11-05 07:43] VITALS: BP 131/70
--- NOTE | 2017-11-05 11:08 | SOCIAL WORKER PROG NOTE PSYCH ---
Social Work Progress Note Progress Note Received a voicemail from [facility] that Falguni was approved 2 days with review again today 11/05. Involuntary Commitment Hearing held today for Falguni. Falguni was appointed Site[employer] Developer Chuy Farris. She did meet with him prior to the hearing. She came to the hearing willingly. Testimony was given by Dr. Pelayo, this mortgage underwriter, and Arlene (charge nurse). Falguni made her own statement which basically said she didn't see the need to provide anyone here her personal information and that she just wants to get on with her life and go to [facility] for her surgery. 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 Director Decision Support Beto from [place] [facility] found the patient to be gravely disabled and that she should be [facility] a [facility]. Falguni had no response after the Director Decision Support's decision and quietly got up and walked out. [facility] informed met that the conservatorship hearing will be 11/19 and that we can pursue the involuntary med power hearing right after the conservatorship hearing the same day. Called Vicky Hand at [facility] to collaborate on this case. Asked about geriatric beds at [facility]. Vicky referred me to just do the [facility] application. She wasn't aware of how long a wait it may be. Called Willa at [facility] and left updated clinical information.
--- NOTE | 2017-11-05 11:14 | CP SOUTH PROGRESS NOTE PSYCH ---
Psych (Inpt) Progress Note Progress Note Psychiatric Evaluation Date of Evaluation: 11/04/2017 Reason for Evaluation: A second opinion regarding involuntary medication and commitment to a state psychiatric facility Sources of Information: 1) The identified patient (interviewed on 11/04/2017 in her room on the inpatient psychiatric unit of [facility]) 2) The patient's electronic health record which included the notes of the patient's attending psychiatrist, Dr. Robert Pealyo MD 3) The notes of the patient's social work job titles on the inpatient psychiatric unit, Claudia Byrd LCSW 4) The Crisis Intervention's clinician's assessment signed by Andrew Arredondo LCSW, dated 10/16/2017 5) Psychiatrist Dr. Jennifer Jackson MD's notes from 10/17/17 and 10/18/2017 6) Psychiatrist Dr. Manpreet Mcpherson MD's notes from 10/24/17 and 10/25/2017 7) The notes of Dr. 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 I believe, with reasonable degree of medical certainty, that the identified patient that WITHOUT ANTIPSYCHOTIC MEDICATION the identified patient's condition will very likely continue in it current deteriorated state (the deterioration has already resulted in significant impairments to the degree that the patient has become no-functional and gravely impaired0 I believe, with reasonable degree of medical certainty, that the patient is not a direct threat to self, but will suffer irreprable harm thought indirect harm because of severe impairment in judgment and severe impairment in reality assessment which may result in putting self -unintentially-in harms' way ( exposure, starvation, and predation/assault by others)
[2017-11-05 12:38] VITALS: BP 126/50
[2017-11-05 15:57] VITALS: BP 114/52
--- NOTE | 2017-11-05 17:15 | CP SOUTH PROGRESS NOTE PSYCH ---
Psych (Inpt) Progress Note Progress Note Include the following elements, when applicable: Involvement in the active treatment of the patient with behavioral observations of the patient and the patient's response to the treatment. Review of the ongoing treatment process in the context of the treatment plan. Indication of how multi-disciplinary staff members are carrying out the treatment plan. Plans for future interventions and recommendations for revision of the treatment plan. Liaison with other physicians/providers. Progress Note: Case and treatment plan discussed in team meeting. Patient's probate commitment hearing was scheduled for 10:30 AM. Patient seen at 10:14 AM. She is resting in bed, dressed in blue scrubs. She appears calm. Feels fine. Has no questions for me. Reports she plans to move to [place] with her . Mood is fine. States she is not sad at all. Denies feeling anxious. Denies suicidal and homicidal ideation. Denies auditory and visual hallucinations and paranoid ideation. Describes sleep, appetite and energy as fine. Refuses recommendation for an antipsychotic, stating that she does not need one. I attended probate commitment hearing at 10:[address] Pérez ruled for probate commitment to [facility] or alternate state facility. IMPRESSION: Slow progress. Continue present treatment plan. Patient remains gravely disabled and has been probate committed. We will work on placement at a state facility. We have filed petitions for hearings for conservator of person and estate as well as medication power for conservator of person.
[2017-11-05 21:22] VITALS: BP 125/56
[2017-11-06 08:09] VITALS: BP 138/88
--- NOTE | 2017-11-06 09:06 | SOCIAL WORKER PROG NOTE PSYCH ---
Social Work Progress Note Progress Note Received a call from Willa at [facility] who informed me that they are requesting a peer review today for continued stay. Received a call from Roseanne at [facility] that the peer review will be scheduled for 11/09 @ 10am with a Dr. Thornton. The doctor will call Dr. Pelayo at the nurses station. Spoke with Indira Bojorquez at [place] [facility]. She advised me to fax over the paperwork regarding authority to consent psychiatric medications and mail out the original. The proposed conservator will be Air Defence Officer Josh Gaines. Faxed paperwork over to court. A tower helper arrived to serve Falguni about the conservatorship hearing. Falguni was visible to the tower helper. I was present and accepted the paperwork for her chart. I explained to Falguni that we were having a hearing for conservatorship. I asked if she understood what that meant? She said she did and that she doesn't agree to it and would never sign for it. I told her that the court would be assigning an real estate associate attorney as the conservator. She stated again that she doesn't agree and asked if that was all I wanted to talk to her about? I told her that I wanted her to be informed of what was going on. She thanked me and walked away.
[2017-11-06 12:05] VITALS: BP 127/62
--- NOTE | 2017-11-06 14:13 | CP SOUTH PROGRESS NOTE PSYCH ---
Psych (Inpt) Progress Note Progress Note Include the following elements, when applicable: Involvement in the active treatment of the patient with behavioral observations of the patient and the patient's response to the treatment. Review of the ongoing treatment process in the context of the treatment plan. Indication of how multi-disciplinary staff members are carrying out the treatment plan. Plans for future interventions and recommendations for revision of the treatment plan. Liaison with other physicians/providers. Progress Note: Case and treatment plan discussed in team meeting. There will be a doc-to-doc review with the insurance company on 11/09/17, at 10 AM. Staff reports that the patient spent most of last evening in bed. bed worker has contacted Jojo Maloney of [facility] [employer] about commitment decree. Patient seen at 11:39 AM. She was resting in bed. Refused to meet with me in office. She stated "I just don't like you and don't want to talk to you. 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 I don't believe you did a day of school at all and you're a liar." IMPRESSION: Slow progress. Continue present treatment plan. Patient remains gravely disabled. She is not engaging in treatment here. We are working on placing the patient at [facility] or [facility]. We are awaiting scheduling of conservatorship hearing as well as medication power for conservator hearing. Patient has no insight and poor judgment.
[2017-11-06 15:55] VITALS: BP 136/63
[2017-11-06 20:34] VITALS: BP 142/62
[2017-11-07 07:53] VITALS: BP 131/69
--- NOTE | 2017-11-07 10:20 | CP SOUTH PROGRESS NOTE PSYCH ---
Psych (Inpt) Progress Note Progress Note Include the following elements, when applicable: Involvement in the active treatment of the patient with behavioral observations of the patient and the patient's response to the treatment. Review of the ongoing treatment process in the context of the treatment plan. Indication of how multi-disciplinary staff members are carrying out the treatment plan. Plans for future interventions and recommendations for revision of the treatment plan. Liaison with other physicians/providers. Progress Note: Pt notes that she is "alright" this morning. Wants increased benadryl for sleep. Discussed risk of benadryl with older adults and recommended melatonin. She then spoke at length about feeling as though she does not need to be hospitalized. In addition, she commented on her bordem. Denies SI or HI. Current Medications Sig/Hanna Start time Last Medication Dose Route Stop Time Status Admin Acetaminophen 650 MG Q4P PRN 10/14 0215 AC PO Atorvastatin Calcium 20 MG 1700 10/20 1700 AC 11/06 PO 1702 Clonazepam 0.5 MG TID 10/29 2200 AC 11/07 PO 11/12 2158 0754 Dicyclomine HCl 10 MG TID PRN 10/16 1730 AC PO Diphenhydramine HCl 25 MG .STK-MED ONE 11/06 2136 DC PO 11/06 2137 Diphenhydramine HCl 25 MG Q6P PRN 10/16 1800 AC 11/06 PO 2135 Diphenhydramine HCl 25 MG Q6P PRN 10/16 1800 AC IM Divalproex Sodium 500 MG TID 10/15 0107 AC 11/07 PO 0754 Fluocinonide 1 MARGIE BID 10/16 2200 AC TOP Gabapentin 300 MG TID 10/15 0111 AC 11/07 PO 0754 Hydroxyzine HCl 25 MG QPM PRN 10/16 1745 AC PO Levothyroxine Sodium 0.05 MG DAILY AC 10/16 0700 AC 11/07 PO 0711 Melatonin 3 MG AT BEDTIME 11/07 2200 UNVr PO Metoprolol Tartrate 50 MG BID 10/15 0058 AC 11/07 PO 0754 Morphine Sulfate 15 MG DAILY 10/24 1000 AC 11/07 PO 0754 Olanzapine 5 MG Q6P PRN 10/16 1800 AC PO Olanzapine 5 MG Q6P PRN 10/16 1800 AC IM Phenazopyridine HCl 100 MG Q8 10/14 0600 DC 10/28 PO 1336 Quetiapine Fumarate 200 MG QPM 10/25 2200 AC PO Vital Signs Date Time Temp Pulse Resp B/P B/P Pulse O2 O2 Flow FiO2 Mean Ox Delivery Rate 11/07 753 97.8 54 20 131/69 11/07 0753 97.8 54 131/69 11/06 2134 99.2 60 20 142/62 11/06 2034 99.2 60 142/62 11/06 1555 60 136/63 03 1205 57 127/62 MSE General appearance: fair hygiene and grooming; Attitude: cooperative but very defensive; Eye contact: none; Movement: no psychomotor agitation or slowing; Speech: nl fluency, nl rate/rhythm, nl volume, nl prosody; Mood: "alright" Affect: irritable, flat, appropriate, constricted, non-labile, congruent; Thought process: linear and goal-directed; Thought content: denied SI or HI, n++ paranoid ideation; Perception: denied hallucinations- auditory, visual, does not appear to be responding to internal stimuli; I/J: limited A/P: Pt with schizoaffective disorder with continued delusions and medication non-complaince. -Continue current medication regimen except added melatonin 3mg for sleep -Encourage integration into the milieu
[2017-11-07 12:13] VITALS: BP 136/63
[2017-11-07 15:51] VITALS: BP 123/60
[2017-11-07 21:30] VITALS: BP 140/75
[2017-11-08 07:33] VITALS: BP 163/78
--- NOTE | 2017-11-08 10:46 | CP SOUTH PROGRESS NOTE PSYCH ---
Psych (Inpt) Progress Note Progress Note Include the following elements, when applicable: Involvement in the active treatment of the patient with behavioral observations of the patient and the patient's response to the treatment. Review of the ongoing treatment process in the context of the treatment plan. Indication of how multi-disciplinary staff members are carrying out the treatment plan. Plans for future interventions and recommendations for revision of the treatment plan. Liaison with other physicians/providers. Progress Note: Pt still upset that and feels that pyridium is ordered though it is not. She again repeated request for increased benadryl. Explained risk of the higher doses of benadryl in patient of her age. Pt not redirectable. Denies SI or HI. Current Medications Sig/Hanna Start time Last Medication Dose Route Stop Time Status Admin Acetaminophen 650 MG Q4P PRN 10/14 0215 AC PO Atorvastatin Calcium 20 MG 1700 10/20 1700 AC 11/07 PO 1550 Clonazepam 0.5 MG TID 10/29 2200 AC 11/08 PO 11/12 2158 0810 Dicyclomine HCl 10 MG TID PRN 10/16 1730 AC PO Diphenhydramine HCl 25 MG Q6P PRN 10/16 1800 AC 11/07 PO 2136 Diphenhydramine HCl 25 MG Q6P PRN 10/16 1800 AC IM Divalproex Sodium 500 MG TID 10/15 0107 AC 11/08 PO 0807 Fluocinonide 1 MARGIE BID 10/16 2200 AC TOP Gabapentin 300 MG TID 10/15 0111 AC 11/08 PO 0808 Hydroxyzine HCl 25 MG QPM PRN 10/16 1745 AC PO Levothyroxine Sodium 0.05 MG DAILY AC 10/16 0700 AC 11/08 PO 0709 Melatonin 3 MG AT BEDTIME 11/07 2200 AC 11/07 PO 2134 Metoprolol Tartrate 50 MG BID 10/15 0058 AC 11/08 PO 0807 Morphine Sulfate 15 MG DAILY 10/24 1000 AC 11/08 PO 0810 Olanzapine 5 MG Q6P PRN 10/16 1800 AC PO Olanzapine 5 MG Q6P PRN 10/16 1800 AC IM Quetiapine Fumarate 200 MG QPM 10/25 2200 AC PO Vital Signs Date Time Temp Pulse Resp B/P B/P Pulse O2 O2 Flow FiO2 Mean Ox Delivery Rate 03/04 0807 96.9 54 20 163/78 03/04 0733 96.9 54 163/78 11/07 2134 98.1 63 20 140/75 03 2130 98.1 63 140/75 11/07 1551 60 123/60 03 1213 62 136/63 MSE General appearance: fair hygiene and grooming; Attitude: cooperative but very defensive; Eye contact: none; Movement: no psychomotor agitation or slowing; Speech: nl fluency, nl rate/rhythm, nl volume, nl prosody; Mood: "OK" Affect: irritable, flat, appropriate, constricted, non-labile, congruent; Thought process: linear and goal-directed; Thought content: denied SI or HI, n++ paranoid ideation; Perception: denied hallucinations- auditory, visual, does not appear to be responding to internal stimuli; I/J: limited A/P: Pt with schizoaffective disorder with continued delusions and medication non-complaince. - BP trending slightly upwards. Will monitor and consider recs by medicine for HTN. -Continue current medication regimen except added melatonin 3mg for sleep -Encourage integration into the milieu
[2017-11-08 11:58] VITALS: BP 123/55
[2017-11-08 15:45] VITALS: BP 119/53
[2017-11-08 21:21] VITALS: BP 142/71
[2017-11-09 07:49] VITALS: BP 135/69
--- NOTE | 2017-11-09 10:32 | SOCIAL WORKER PROG NOTE PSYCH ---
Social Work Progress Note Progress Note SW met this morning with pt. Pt in bedroom laying in bed. States SW woke her up. Pt reporting pain in left arm stating she broke it 2 weeks ago. Pt denies complaints other than stating she just wants to go home. Pt reports home is in [place]. Pt states she has been inpatient at [facility] about 40 days. 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 Pt reports having no visitors thsi weekend. SW let her know she can reach out if she needs further SW contact later today. Reviewed case with Dr Pelayo. He completed [employer] peer review at 10am with Dr Thornton. Authorized 2 more days with next review 11/07.
[2017-11-09 12:19] VITALS: BP 118/73
--- NOTE | 2017-11-09 14:22 | CP SOUTH PROGRESS NOTE PSYCH ---
Psych (Inpt) Progress Note Progress Note Include the following elements, when applicable: Involvement in the active treatment of the patient with behavioral observations of the patient and the patient's response to the treatment. Review of the ongoing treatment process in the context of the treatment plan. Indication of how multi-disciplinary staff members are carrying out the treatment plan. Plans for future interventions and recommendations for revision of the treatment plan. Liaison with other physicians/providers. Progress Note: Dr. Mcpherson's notes reviewed. Case and treatment plan discussed in team meeting. Staff reports that the patient is doing better. Socializes in the milieu. Not going to groups. Not voicing any issues. Patient seen at 9:53 AM. She is resting in bed. Reports feeling alright. Denies having any questions or concerns. Affect is calm and blunted. Mood is fine. She remarked "I don't want to answer those silly questions." I did a peer review with Dr. Alex Briggs from the insurance company, and he authorized coverage through Thursday. IMPRESSION: Slow progress. Continue present treatment plan. Await scheduling of conservatorship hearings. Patient apparently has been using prn Benadryl at night but she really should only have been given it for agitation. At this point, because of the patient's age, we will stop p.o. prn Benadryl. Patient has melatonin.
[2017-11-09 16:10] VITALS: BP 96/62
--- NOTE | 2017-11-09 17:20 | SOCIAL WORKER PROG NOTE PSYCH ---
Social Work Progress Note Progress Note Received voicemail from [facility] Farnaz Montes De Oca was approved for continued stay - 11/06/17-, next reveiw due 11/11/17. AUTH#[id number]. Call #[phone], [phone] for next review.
[2017-11-09 19:53] VITALS: BP 126/60
[2017-11-10 07:34] VITALS: BP 106/70; BP 116/71
[2017-11-10 07:53] VITALS: BP 151/58
--- NOTE | 2017-11-10 11:53 | CP SOUTH PROGRESS NOTE PSYCH ---
Psych (Inpt) Progress Note Progress Note Include the following elements, when applicable: Involvement in the active treatment of the patient with behavioral observations of the patient and the patient's response to the treatment. Review of the ongoing treatment process in the context of the treatment plan. Indication of how multi-disciplinary staff members are carrying out the treatment plan. Plans for future interventions and recommendations for revision of the treatment plan. Liaison with other physicians/providers. Progress Note: Case and treatment plan discussed in team meeting. Staff reports that the patient has been quieter lately. Not talking to herself as much. 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 Patient seen at 10:22 AM. She was resting in bed. She stated "I'm being held prisoner here." Refuses recommendation for an antipsychotic, stating that she is not psychotic. She stated "I've already gone to court for that." Affect is calm and blunted. Patient declined further interview. IMPRESSION: Slow progress. Continue present treatment plan. Await conservatorship hearings , which will take place in about 10 days. We are trying to place the patient at a state facility on her probate commitment.
[2017-11-10 12:31] VITALS: BP 117/62
[2017-11-10 16:00] VITALS: BP 132/66
--- NOTE | 2017-11-10 16:38 | SOCIAL WORKER PROG NOTE PSYCH ---
See Addendum Social Work Progress Note Progress Note Falguni was observed to be sitting in the lounge more today. Looking at magazines and watching TV. Seemed to be talking and smiling to herself. I asked if she would like to meet? She asked what for? I told her it was just a check in to discuss anything. She said "no thank you." I told her it was nice to see her sitting out in the lounge.
[2017-11-11 07:48] VITALS: BP 137/72
--- NOTE | 2017-11-11 10:59 | SOCIAL WORKER PROG NOTE PSYCH ---
Social Work Progress Note Progress Note Dr. Pelayo and I met with Falguni together. I asked about her pain today? She reported that yes she was in pain. When asked where? She said her arm, back, and neck. She reported this pain started 2 weeks ago. She was asked if her bowel are still ruptured? She said they are. She wouldn't allow Dr. Pelayo to speak to her and told him that she is not talking to him. I asked if that went for this publicity writer as well? She asked what I had to say? I reiterated that she is currently [facility] a [facility] for a [facility], but if we could confirm that she had somewhere safe to go and develope a safety plan we may consider another plan. She told me at that point that she didn't wish to speak with me anymore. Called Willa at [facility] and left updated clinical for continued stay.
[2017-11-11 12:15] VITALS: BP 128/57
--- NOTE | 2017-11-11 14:28 | CP SOUTH PROGRESS NOTE PSYCH ---
Psych (Inpt) Progress Note Progress Note Include the following elements, when applicable: Involvement in the active treatment of the patient with behavioral observations of the patient and the patient's response to the treatment. Review of the ongoing treatment process in the context of the treatment plan. Indication of how multi-disciplinary staff members are carrying out the treatment plan. Plans for future interventions and recommendations for revision of the treatment plan. Liaison with other physicians/providers. Progress Note: Case and treatment plan discussed in team meeting. Staff reports that the patient was able to hold an appropriate conversation with mental health oil change technician. Patient stayed in her room last evening. Patient seen at 10:43 AM with Claudia Byrd LCSW. Patient is in her room, resting in bed. She is dressed in blue paper scrubs. States she feels all right. Reports chronic pain at arm, back and neck. States pain is from a fall in the hospital 2 weeks ago but she presented to the emergency room with similar complaints. Continues to maintain that she has a ruptured bowel. States "I don 't want to talk to you. Do understand me? Don't speak to me." IMPRESSION: Slow progress. Continue present treatment plan. Remains delusional. Conservatorship hearings are scheduled for 11/19/17 at 10:30 AM and 11 AM. Patient continues to require inpatient level of care.
[2017-11-11 16:03] VITALS: BP 140/82
[2017-11-11 21:24] VITALS: BP 140/57
[2017-11-12 07:53] VITALS: BP 139/84
--- NOTE | 2017-11-12 08:15 | SOCIAL WORKER PROG NOTE PSYCH ---
Social Work Progress Note Progress Note [employer] approved 4 units from 11/12- 11/15 with review on 11/16. Auth #[id number]. Went to Falguni's bedroom around 2:30 to see how she was doing. She was less visible on the unit today. I reflected that back to her. She said she would rather be in her room. I asked if she was lonely or felt isolated? She said she is in [facility] and she doesn't want to talk to me. She kept repeating this, so at that point I left the room.
--- NOTE | 2017-11-12 10:55 | SOCIAL WORKER PROG NOTE PSYCH ---
Social Work Progress Note Progress Note Pt has 16 people ahead of her on the admission list for [facility]. This typewriter tester confirmed they have her information and she is on the list.
--- NOTE | 2017-11-12 11:01 | CP SOUTH PROGRESS NOTE PSYCH ---
Psych (Inpt) Progress Note Progress Note Include the following elements, when applicable: Involvement in the active treatment of the patient with behavioral observations of the patient and the patient's response to the treatment. Review of the ongoing treatment process in the context of the treatment plan. Indication of how multi-disciplinary staff members are carrying out the treatment plan. Plans for future interventions and recommendations for revision of the treatment plan. Liaison with other physicians/providers. Progress Note: Case and treatment plan discussed in team meeting. Staff reports that the patient is denying SI. She was in bed for the majority of last evening. Refusing all groups. Patient seen at 10:38 a.m. She was asleep in bed, dressed in blue paper scrubs. She awoke and refused to be interviewed. IMPRESSION: Slow progress. Continue present treatment plan. We are awaiting patient's conservatorship hearings and placement at a state facility.
[2017-11-12 11:53] VITALS: BP 135/67
[2017-11-12 16:19] VITALS: BP 124/61
[2017-11-12 19:34] VITALS: BP 143/74
[2017-11-13 07:39] VITALS: BP 149/75
[2017-11-13 12:11] VITALS: BP 114/56
--- NOTE | 2017-11-13 12:18 | CP SOUTH PROGRESS NOTE PSYCH ---
Psych (Inpt) Progress Note Progress Note Include the following elements, when applicable: Involvement in the active treatment of the patient with behavioral observations of the patient and the patient's response to the treatment. Review of the ongoing treatment process in the context of the treatment plan. Indication of how multi-disciplinary staff members are carrying out the treatment plan. Plans for future interventions and recommendations for revision of the treatment plan. Liaison with other physicians/providers. Progress Note: Case and treatment plan discussed in team meeting. Staff reports that the patient said she won't talk to the social media strategist or the doctor. Not going to groups. Spent some time in the milieu watching TV. Patient seen at 12:10 pm. She was walking from her room to the nursing desk area to have vital signs checked. She is awake and alert. Ambulating well. Speech is clear. Affect is calm and blunted. Refuses interview. IMPRESSION: Slow progress. Continue present treatment plan. Awaiting placement at a state facility on probate commitment. Patient has conservatorship hearing scheduled for 11/19/17.
--- NOTE | 2017-11-13 14:30 | SOCIAL WORKER PROG NOTE PSYCH ---
Social Work Progress Note Progress Note Falguni has been in her room today other than to eat. I asked if she still wasn 't talking to me? She said "I'm not talking to anyone." I asked how come? She said "this is intermediate leave me alone." I told her I was sorry she was feeling that way. She repeated "this is intermediate leave me alone." At that point I left.
[2017-11-13 16:56] VITALS: BP 125/63
[2017-11-13 20:44] VITALS: BP 132/63
[2017-11-14 08:00] VITALS: BP 158/86
--- NOTE | 2017-11-14 11:39 | CP SOUTH PROGRESS NOTE PSYCH ---
Psych (Inpt) Progress Note Progress Note Include the following elements, when applicable: Involvement in the active treatment of the patient with behavioral observations of the patient and the patient's response to the treatment. Review of the ongoing treatment process in the context of the treatment plan. Indication of how multi-disciplinary staff members are carrying out the treatment plan. Plans for future interventions and recommendations for revision of the treatment plan. Liaison with other physicians/providers. Progress Note: Chart reviewed. Progress discussed with nursing staff. Interviewed patient this morning in her room. She is known to me from previous weekends. Pleasant, cooperative, not interested in engaging. Says her only complaint is "being here ". I reminded her of her upcoming hearing and she says "there's no point, I've already won". Denies med SEs, denies SI/HI. Vital signs were reviewed and demonstrate SBP elevation. No new laboratory results today. Mental status exam: female older than apparent stated age resting comfortably on hospital bed. Poor eye contact. Positive psychomotor slowing. No abnormal movements noted. Speech was quiet, otherwise within normal limits. Mood was "fine". Affect was constricted, mildly irritable. Thought process was impoverished. +delusion. Positive somatic delusions. Denies SI or HI. Denies perceptual disturbances. Cognition was grossly intact. Insight and judgment are limited. A/P: Continues to make slow progress though less irritable than on previous interviews and less perseveratively delusional. Will continue present treatment plan.
[2017-11-14 12:04] VITALS: BP 117/67
[2017-11-14 16:21] VITALS: BP 128/72
[2017-11-14 19:58] VITALS: BP 141/76
[2017-11-15 08:03] VITALS: BP 171/90
[2017-11-15 11:58] VITALS: BP 118/55
--- NOTE | 2017-11-15 12:58 | CP SOUTH PROGRESS NOTE PSYCH ---
Psych (Inpt) Progress Note Progress Note Include the following elements, when applicable: Involvement in the active treatment of the patient with behavioral observations of the patient and the patient's response to the treatment. Review of the ongoing treatment process in the context of the treatment plan. Indication of how multi-disciplinary staff members are carrying out the treatment plan. Plans for future interventions and recommendations for revision of the treatment plan. Liaison with other physicians/providers. Progress Note: Chart reviewed. Progress discussed with nursing staff. Interviewed patient this morning in her room. Pleasant, states she has "already sued [place], [place], and the [place]". Asks to have her synthroid raised to " 100 milligrams". Not looking forward to seeing Dr. Pelayo tomorrow because "he's never gone to school a day in his life". Denies med SEs, denies SI/HI. Vital signs were reviewed and wnl. No new laboratory results today. Mental status exam: female older than apparent stated age resting comfortably on hospital bed. Poor eye contact. Positive psychomotor slowing. No abnormal movements noted. Speech was quiet, otherwise within normal limits. Mood was "fine". Affect was constricted, mildly irritable. Thought process was impoverished. +grandiose delusions noted above. Denies SI or HI. Denies perceptual disturbances. Cognition was grossly intact. Insight and judgment are limited. A/P: Continues to make slow progress though less irritable than on previous interviews and less perseveratively delusional. Will continue present treatment plan.
[2017-11-15 15:54] VITALS: BP 121/72
[2017-11-15 19:54] VITALS: BP 138/50
[2017-11-16 07:58] VITALS: BP 158/74
--- NOTE | 2017-11-16 11:06 | SOCIAL WORKER PROG NOTE PSYCH ---
Social Work Progress Note Progress Note Falguni was laying in bed at 11am. She heard me announce myself and she said "I 'm not talking to you." I said still? She said "I'm not talking to anyone." She then stated that she wanted me to leave and said "goodbye." Called [employer] and left updated clinical@ ext [phone]. Willa called from [employer] and gave 4 units with review on 11/19/17.
[2017-11-16 12:01] VITALS: BP 143/78
--- NOTE | 2017-11-16 15:26 | CP SOUTH PROGRESS NOTE PSYCH ---
Psych (Inpt) Progress Note Progress Note Include the following elements, when applicable: Involvement in the active treatment of the patient with behavioral observations of the patient and the patient's response to the treatment. Review of the ongoing treatment process in the context of the treatment plan. Indication of how multi-disciplinary staff members are carrying out the treatment plan. Plans for future interventions and recommendations for revision of the treatment plan. Liaison with other physicians/providers. Progress Note: Dr. Wasserman's notes reviewed. Case and treatment plan discussed in team meeting. Staff reports that the patient spends a lot of the day in her room. She comes out to watch TV in the evening. Quiet about delusional material except some material snuck out about her belief that she is a doctor. Appearing disheveled and malodorous. Patient seen at 12:02 PM. She was noted to be sitting at a table in the dining room. Has no questions. Refuses formal interview. IMPRESSION: Slow progress. Continue present treatment plan. Patient's conservatorship hearings are scheduled for 11/19/17.
[2017-11-16 16:04] VITALS: BP 118/60
[2017-11-16 19:56] VITALS: BP 138/71
[2017-11-17 07:39] VITALS: BP 133/67
--- NOTE | 2017-11-17 10:45 | SOCIAL WORKER PROG NOTE PSYCH ---
Social Work Progress Note Progress Note Falguni was sleeping late this morning. Announced myself and told her I was checking in with her. She refuses to speak to me.
--- NOTE | 2017-11-17 12:06 | CP SOUTH PROGRESS NOTE PSYCH ---
Psych (Inpt) Progress Note Progress Note Include the following elements, when applicable: Involvement in the active treatment of the patient with behavioral observations of the patient and the patient's response to the treatment. Review of the ongoing treatment process in the context of the treatment plan. Indication of how multi-disciplinary staff members are carrying out the treatment plan. Plans for future interventions and recommendations for revision of the treatment plan. Liaison with other physicians/providers. Progress Note: Case and treatment plan discussed in team meeting. 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 Appearing withdrawn and isolative. Spent most of the evening in her room. Patient seen at 9:10 a.m. She was resting in bed. She is dismissive. Reports feeling okay and has no complaints. Refusing interview. States that she has fired me. IMPRESSION: Slow progress. Continue present treatment. Await conservatorship hearings on .
[2017-11-17 12:13] VITALS: BP 131/55
[2017-11-17 16:10] VITALS: BP 137/69
[2017-11-17 20:21] VITALS: BP 162/58
[2017-11-18 08:39] VITALS: BP 135/77
--- NOTE | 2017-11-18 10:59 | SOCIAL WORKER PROG NOTE PSYCH ---
Social Work Progress Note Progress Note Falguni was sleeping in her room late morning. I reminded her that the court hearing is tomorrow for conservatorship. I asked if she had any questions regarding the hearing? She said she knows what it's about and that she has been through this all before. States she has "already won this case." I told her again it's in regards to conservatorship and asked if she had questions about what that means? She said she is aware and doesn't have questions.
--- NOTE | 2017-11-18 11:33 | SOCIAL WORKER PROG NOTE PSYCH ---
Social Work Progress Note Progress Note Met with Falguni she was in bed, asleep. She was easily awakened but remained in bed. She stated "I'm in long term, I don't need to be here." She said, 'I am just doing my time." She politely dismissed me from her room, said thank you and "I am not talking any more." [facility] Kim/Admissions . Kim stated patient is #14 on waitlist. Faxed clinical MD notes only to [phone] date back from 11/08/17 to current.
[2017-11-18 11:57] VITALS: BP 132/60
[2017-11-18 15:56] VITALS: BP 113/51
--- NOTE | 2017-11-18 16:16 | CP SOUTH PROGRESS NOTE PSYCH ---
Psych (Inpt) Progress Note Progress Note Include the following elements, when applicable: Involvement in the active treatment of the patient with behavioral observations of the patient and the patient's response to the treatment. Review of the ongoing treatment process in the context of the treatment plan. Indication of how multi-disciplinary staff members are carrying out the treatment plan. Plans for future interventions and recommendations for revision of the treatment plan. Liaison with other physicians/providers. Progress Note: Case and treatment plan discussed in team meeting. Staff reports that the patient remains unchanged. Comes out of her room for vital signs and some medications. She was outspoken in planning meeting, stating that she felt like a caged rat. Patient seen at 11:53 AM. She appears to have just washed up. There is a towel over her scalp. Reports doing well. States "this is intermediate." Refuses interview. IMPRESSION: Slow progress. Continue present treatment plan. Patient's conservatorship hearings will take place tomorrow morning.
[2017-11-18 20:05] VITALS: BP 135/72
[2017-11-19 08:09] VITALS: BP 142/73
--- NOTE | 2017-11-19 11:56 | SOCIAL WORKER PROG NOTE PSYCH ---
Social Work Progress Note Progress Note Conservatorship Hearing was held for Falguni this morning. She chose to come to the hearing, but chose not to speak. She announced herself as Falguni Luo MD. Vp Respiratory Beto ruled in favor of appointment of conservatorship of person and estate. The appointed Conservator is Attorney Gaines. Following the Conservatorship Hearing, there was a hearing regarding giving the conservatorship authority to give psychiatric medications against will. The Vp Respiratory ruled that there was clear and convincing evidence that med power should be granted. Obtained Multineedle Shirrer Liana's contact information and gave him some information such as: Insurance info and social security number. He also made copies of her insurance cards and debit/ credit cards to try and find out financial information. Called Willa at [facility] to give updated clinical information for continued stay. Willa returned the call and authorized 4 units with review on 11/23 auth# [id number].
[2017-11-19 12:20] VITALS: BP 137/54
--- NOTE | 2017-11-19 14:47 | CP SOUTH PROGRESS NOTE PSYCH ---
See Addendum Psych (Inpt) Progress Note Progress Note Include the following elements, when applicable: Involvement in the active treatment of the patient with behavioral observations of the patient and the patient's response to the treatment. Review of the ongoing treatment process in the context of the treatment plan. Indication of how multi-disciplinary staff members are carrying out the treatment plan. Plans for future interventions and recommendations for revision of the treatment plan. Liaison with other physicians/providers. Progress Note: Case and treatment plan discussed in team meeting. Staff reports that the patient watched TV in the lounge last night. Remains delusional. I attended [employer] hearings this morning. Patient refused to be sworn- in at the hearings but she referred to herself as Falguni Luo M.D. Judge Pérez ruled for appointment of conservator of person and estate and for medication power for conservator of person. I attempted to interview the patient this afternoon. She appeared awake and alert. She did not want to speak with me. IMPRESSION: Slow progress. Continue present treatment plan. We are faxing a letter to Coding Compliance Specialist Josh Gaines, conservator, for permission for ROBERT Gupta and Cornel as well as for evangelist Greenberg. We are awaiting patient's placement at a state facility on her probate commitment.
[2017-11-19 15:57] VITALS: BP 136/62
[2017-11-19 19:37] VITALS: BP 125/77
[2017-11-20 07:43] VITALS: BP 144/62
[2017-11-20 12:13] VITALS: BP 121/50
--- NOTE | 2017-11-20 12:18 | SOCIAL WORKER PROG NOTE PSYCH ---
Social Work Progress Note Progress Note Called Aircraft Rigging And Controls Mechanic Liana to ensure he received the faxed letter yesterday regarding medications for Falguni. He did receive it, but said he was waiting to receive the decree about involuntary medication. I told him we have the decree and I could fax it to him for now? He stated that would work. He said once he gets that he will authorize the letter and fax it back to us. Letter was received with his authorization and filed in her chart. I saw Falguni in the hallway and asked her if she has any questions about yesterday? She kept walking towards her room. She said "no." When she got to her room she closed her door to discontinue any conversation with me.
--- NOTE | 2017-11-20 15:26 | CP SOUTH PROGRESS NOTE PSYCH ---
Psych (Inpt) Progress Note Progress Note Include the following elements, when applicable: Involvement in the active treatment of the patient with behavioral observations of the patient and the patient's response to the treatment. Review of the ongoing treatment process in the context of the treatment plan. Indication of how multi-disciplinary staff members are carrying out the treatment plan. Plans for future interventions and recommendations for revision of the treatment plan. Liaison with other physicians/providers. Progress Note: Case and treatment plan discussed in team meeting. Staff reports that the patient remains unchanged. She asked to be left alone after the hearings yesterday. Missile Inspector Preflight Josh Gaines authorized IM Haldol and Cogentin and p.o. Risperdal (please see authorizatokristie in the paper chart). Patient seen at 1 PM. She was in bed with her eyes open. She did not vocalize but she nodded no when asked if she would consent to being interviewed. I informed her that we have permission from the [facility] for forced medications and that these were being ordered. I ordered Risperdal 1 mg p.o. twice daily and if refused, patient to be given Haldol 5 mg IM and Cogentin 1 mg IM twice daily. Patient has an order for mouth checks for orally administered medications. Nursing staff reports that patient refused oral Risperdal, so plan was to administer IM medications as above. IMPRESSION: Slow progress. Continue present treatment plan. Monitor response to forced medications.
[2017-11-20 16:23] VITALS: BP 103/56
[2017-11-20 19:48] VITALS: BP 130/69
[2017-11-21 08:24] VITALS: BP 138/81
--- NOTE | 2017-11-21 11:47 | CP SOUTH PROGRESS NOTE PSYCH ---
Psych (Inpt) Progress Note Progress Note Include the following elements, when applicable: Involvement in the active treatment of the patient with behavioral observations of the patient and the patient's response to the treatment. Review of the ongoing treatment process in the context of the treatment plan. Indication of how multi-disciplinary staff members are carrying out the treatment plan. Plans for future interventions and recommendations for revision of the treatment plan. Liaison with other physicians/providers. Progress Note: Irritable, states that she is too sedated on her medications and thats all there is to talk about. Does appear unsteady and walking holding railing, will lower her seroquel for now until she gets used to the dose. States that she doesnt need any medications at all and that the conservator hearings they didn t give much history or participate otherwise. MSE: overweight elderly woman with poor grooming, fair eye contact. Mood is angry and affect constricted. Speech is regular rate and rhythm. Her thought process is concrete. Thought content is positive for likely delusions (noted her money was poorly counted) but she really didnt engage with me long enough to go into her likely existing grandiose delusions. She denies any hallucinations or any sx at all, including any need for tx. Her insight to sx is absent and judgment is poor. A: 67 year old woman with psychotic sx, recently conserved w/ med authority. She was started on risperdal and seroquel and c/o of all medications. In fairness she does appear unsteady, though do not know how she is at baseline. Her risk factors include untreated symptoms, poorly engaged with team, and inadequate insight Plan: will lower seroquel to 100mg at night time, with plan likely to increase back up as she continues to take the meds regularly and without IM, so as not to risk fall. She is not happy about having them on or increased but aware of IM backups. Continue educating her about need for tx and plan for her, as she continues to state she needs to be discharged.
[2017-11-21 12:09] VITALS: BP 137/73
[2017-11-21 15:43] VITALS: BP 127/71
[2017-11-21 20:24] VITALS: BP 143/77
[2017-11-22 08:10] VITALS: BP 134/95
[2017-11-22 12:06] VITALS: BP 123/58
--- NOTE | 2017-11-22 12:17 | CP SOUTH PROGRESS NOTE PSYCH ---
Psych (Inpt) Progress Note Progress Note Include the following elements, when applicable: Involvement in the active treatment of the patient with behavioral observations of the patient and the patient's response to the treatment. Review of the ongoing treatment process in the context of the treatment plan. Indication of how multi-disciplinary staff members are carrying out the treatment plan. Plans for future interventions and recommendations for revision of the treatment plan. Liaison with other physicians/providers. Progress Note: Appears less unsteady on her feet compared to yesterday. Has been taking her oral risperdal and states that she does not need any meds at all, nor does she need admission. 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 Stated that her bowels are ruptured and needs surgery. MSE: overweight elderly woman with poor grooming, fair eye contact. Mood is less angry, affect is constricted. Speech is normal. Her thinking is concrete. She has grandiose paranoid delusions. She denies experiencing any psychiatric sx nor having any need for tx. Denies thoughts of wanting to harm self or others. Her insight to sx is absent and judgment is poor. A: 67 year old woman with psychotic sx, recently conserved w/ med authority. She was started on risperdal and seroquel and c/o of all medications. She is less unsteady and has been taking her oral risperdal despite her protest. Plan: continue current plan of care. She is aware of IM backups for her risperdal. Continues to be psychotic. Would slowly increase dose over next several days if she does not show over sedation or other AE.
[2017-11-22 15:58] VITALS: BP 131/59
[2017-11-22 19:52] VITALS: BP 124/71
[2017-11-23 08:07] VITALS: BP 129/69
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
[2017-11-23 11:50] LABS: ABSOLUTE BASOPHIL COUNT 0 /CUMM (0.0-0.2); ABSOLUTE EOSINOPHIL COUNT 0.2 /CUMM (0.0-0.7); ABSOLUTE GRANULOCYTE CT 2.3 /CUMM (1.4-6.5); ABSOLUTE LYMPH COUNT 2.7 /CUMM (1.2-3.4); ABSOLUTE MONOCYTE COUNT 0.5 /CUMM (0.10-0.60); BASOPHIL % 0.5 % (0.0-2.0); EOSINOPHIL % 4.2 % (0-5); HEMATOCRIT 41.3 % (37-47); MEAN CORPUSCULAR HGB 28.6 PG (27.0-31.0); MEAN CORPUSCULAR HGB CONC 32.3 G/DL (33.0-37.0); MEAN CORPUSCULAR VOLUME 88.4 FL (81.0-99.0); MEAN PLATELET VOLUME 8.1 FL (7.4-10.4); PLATELET COUNT 187 /CUMM (130-400); RBC DISTRIBUTION WIDTH 15.4 % (11.5-14.5); RED BLOOD CELL CT 4.68 /CUMM (4.20-5.40); WHITE BLOOD CELL COUNT 5.7 /CUMM (4.8-10.8)
[2017-11-23 12:05] VITALS: BP 133/56
--- NOTE | 2017-11-23 15:57 | CP SOUTH PROGRESS NOTE PSYCH ---
Psych (Inpt) Progress Note Progress Note Laboratory Tests 11/23 1115 Chemistry Total Bilirubin (0.2 - 1.3 mg/dL) 0.4 Direct Bilirubin (< 0.4 mg/dL) 0.4 AST (14 - 36 U/L) 11 L ALT (9 - 52 U/L) 15 Alkaline Phosphatase (<127 U/L) 49 Total Protein (6.3 - 8.2 g/dL) 6.5 Albumin (3.5 - 5.0 g/dL) 3.5 TSH &T3 &Free T4 Intrp (0.270 - 4.20 uIU/mL) 3.520 Hematology CBC w Diff NO MAN DIFF REQ WBC (4.8 - 10.8 /CUMM) 5.7 RBC (4.20 - 5.40 /CUMM) 4.68 Hgb (12.0 - 16.0 G/DL) 13.4 Hct (37 - 47 %) 41.3 MCV (81.0 - 99.0 FL) 88.4 MCH (27.0 - 31.0 PG) 28.6 MCHC (33.0 - 37.0 G/DL) 32.3 L RDW (11.5 - 14.5 %) 15.4 H Plt Count (130 - 400 /CUMM) 187 MPV (7.4 - 10.4 FL) 8.1 Gran % (42.2 - 75.2 %) 40.0 L Lymphocytes % (20.5 - 51.1 %) 47.4 Monocytes % (1.7 - 9.3 %) 7.9 Eosinophils % (0 - 5 %) 4.2 Basophils % (0.0 - 2.0 %) 0.5 Absolute Granulocytes (1.4 - 6.5 /CUMM) 2.3 Absolute Lymphocytes (1.2 - 3.4 /CUMM) 2.7 Absolute Monocytes (0.10 - 0.60 /CUMM) 0.5 Absolute Eosinophils (0.0 - 0.7 /CUMM) 0.2 Absolute Basophils (0.0 - 0.2 /CUMM) 0 Toxicology Valproic Acid (50 - 120 ug/mL) 65.1 Vital Signs Date Time Temp Pulse Resp B/P B/P Pulse O2 O2 Flow FiO2 Mean Ox Delivery Rate 11/23 1205 72 133/56 11/23 0808 129/69 11/23 0807 98.2 71 129/69 11/22 2008 98.0 85 20 124/71 11/23 1951 98.0 85 124/71 11/22 1558 80 131/59 Has been taking her oral risperdal Mood is less angry, affect is constricted. Speech is minimal, grandiose paranoid delusions. Denies thoughts of wanting to harm self or others. very poor insight A: 67 year old woman with psychotic sx, recently conserved w/ med authority. She was started on risperdal and seroquel and c/o of all medications. She is less unsteady and has been taking her oral risperdal despite her protest. Plan: D/C Seroquel (declined a reduction first)
[2017-11-23 16:06] VITALS: BP 140/81
[2017-11-23 20:28] VITALS: BP 137/69
[2017-11-24 08:15] VITALS: BP 142/90
[2017-11-24 12:24] VITALS: BP 144/93
--- NOTE | 2017-11-24 13:54 | CP SOUTH PROGRESS NOTE PSYCH ---
Psych (Inpt) Progress Note Progress Note Staff reported in the treatment team meeting this morning that the patient has shown significant improvement Mental status examination: I met with her early in the afternoon and she was back to perseverating about having fracture in her left upper arm and that she cannot move her arm and that she wanted more x-rays done She complained about pain I did not see any swelling or redness there was no limitation of movement thoughts the patient had a weak health safety instructor I was not sure if it was of trying She wanted something for the pain preferably increasing the morphine sulfate frequency, she also wanted x-rays of the arm, she also wanted "Restoril"-her words-at bedtime She was calm, mood is less angry, affect is constricted. She denied thoughts of wanting to harm self or others. very poor insight A: 67 year old woman with psychotic sx, recently conserved w/ med authority. She was started on risperdal and seroquel and c/o of all medications. She is less unsteady and has been taking her oral risperdal despite her protest. Plan: Start diclofenac sodium 75 mg extended release twice daily Move all the Klonopin to bedtime 1.5 mg
--- NOTE | 2017-11-24 14:27 | SOCIAL WORKER PROG NOTE PSYCH ---
Social Work Progress Note Progress Note Falguni was in bed at 2pm. She is angry today and complaining that her left arm is hurt and no one is helping her. She complained about how the nursing staff do nothing for her. She stated she heard a crack in her arm and she is in pain. She asked for the patient safety number to make a formal complaint. I told her that I'd like to discuss the issue with nursing. She stated they are already aware and they aren't giving me any medication for the pain. I told her I would get back to her with patient safety's phone number. Spoke with Laura Figueroa ([facility] Techn[facility]). Laura will be looking at her arm. I gave Falguni Patient Safety's number. 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
[2017-11-24 15:41] VITALS: BP 134/70
[2017-11-24 19:42] VITALS: BP 135/74
[2017-11-25 07:59] VITALS: BP 140/75
--- NOTE | 2017-11-25 11:47 | SOCIAL WORKER PROG NOTE PSYCH ---
Social Work Progress Note Progress Note Falguni met with Laura Rowland RN and Karol Wise from Patient Safety today, due to her complaints about the team not addressing her pain. I attempted to speak to Falguni as she was about to lay down in bed again. She stated "I don't feel like talking." I said I just wanted to check in and see how she was feeling and if he arm is feeling better? She said her arm was feeling better today and then proceeded to tell me she doesn't want to talk. Seemed irritable and angry.
[2017-11-25 12:39] VITALS: BP 116/74
--- NOTE | 2017-11-25 13:52 | CP SOUTH PROGRESS NOTE PSYCH ---
Psych (Inpt) Progress Note Progress Note Vital Signs Date Time Temp Pulse Resp B/P FiO2 11/25 1239 87 116/74 11/25 0801 98.7 87 20 140/75 11/25 0759 98.7 87 140/75 11/24 1942 98.3 71 135/74 Mental status examination: Today, the patient did not bring up, or complain about a fracture in her left upper arm She did not request x-rays done. However, she complained about nasal congestion and was asking for Benadryl again, I discussed with her other options She complained that Voltaren did not work for her pain She was calm, she denied feeling depressed, she denied feeling anxious, and denied hallucinations She denied thoughts of wanting to harm self or others. very poor insight A: 67 year old woman with psychotic sx, recently conserved w/ med authority. She was started on risperdal and seroquel and c/o of all medications. She is less unsteady and has been taking her oral risperdal despite her protest. Plan: Discontinue diclofenac sodium 75 mg Start Naprosyn 500 mg twice daily As needed Sudafed for her complaints of congestion, she reported that she feels that she is coming down with a cold (??), Patient has a tendency to self diagnose herself with all kinds of medical issues Continue Klonopin at bedtime 1.5 mg Continue other medications unchanged
[2017-11-25 15:45] VITALS: BP 100/65
[2017-11-25 19:44] VITALS: BP 145/66
[2017-11-26 07:44] VITALS: BP 130/63
--- NOTE | 2017-11-26 10:27 | SOCIAL WORKER PROG NOTE PSYCH ---
Social Work Progress Note Progress Note Called [facility] admissions this morning. Spoke with Sofya. She stated that Falguni has moved up on the list and may be around number 10. She requested that we fax updated notes and [facility] Met with Falguni who was laying in bed at the time. She complained of not feeling well and stated that she had a cold. She said she feels run down and that she is taking Sudafed. She said "I just want to go home." This time she shared that her home is [place] and that she has lived in [place] for 6 years. She reported that she has a boyfriend there that wants to her. She also stated that is where she had her children. I questioned this and stated back to her that she had told me that she had 1 child. She then said yes. I asked her daughters name. She said it is "Ashley Armendariz." She said she had 2 grandchildren Mario and Gamaliel. She reported Gamaliel is 15 and lives with her Mother in [place]. I asked if she had talked to her daughter recently? She said she had talked to her a couple months ago. I asked for her phone number. She recited: [phone]. She said she lives in [facility]. I asked if she had any siblings? She said she has one 1/2 brother and his name is Suresh Ruben and he lives in [place]. Called Area Directoranusha Gaines's office and left a message.
[2017-11-26 11:48] VITALS: BP 118/54
[2017-11-26 15:57] VITALS: BP 121/71
--- NOTE | 2017-11-26 17:01 | CP SOUTH PROGRESS NOTE PSYCH ---
Psych (Inpt) Progress Note Progress Note Include the following elements, when applicable: Involvement in the active treatment of the patient with behavioral observations of the patient and the patient's response to the treatment. Review of the ongoing treatment process in the context of the treatment plan. Indication of how multi-disciplinary staff members are carrying out the treatment plan. Plans for future interventions and recommendations for revision of the treatment plan. Liaison with other physicians/providers. Progress Note: Dr. Shira Diaz's and Dr. David Mirza's notes reviewed. Case and treatment plan discussed in team meeting. Staff reports that the patient was well-behaved overnight. She has complained of ongoing arm pain. hot stick worker reports that the patient had a reasonable conversation a couple of days ago. The next day, the patient was angry and irritable. 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 Patient reportedly is #10 on the waiting list for [facility]. Seroquel was discontinued over the last few days, as the patient is now on Risperdal. Patient seen at 2:03 PM. She was resting in bed. She told me that she likes Dr. Mirza. She complains of having a cold and not sleeping well. States that Seroquel gives her terrible nightmares. Denies suicidal and homicidal ideation. Denies auditory and visual hallucinations and paranoid ideation. Patient is somewhat short but she is more communicative with me than she had been. IMPRESSION: Slow progress. Continue present treatment plan. Continue Risperdal 1 mg in the morning and 2 mg at night. There is backup IM Candy and Cornel if the patient refuses p.o. Risperdal. Chemistries from 11/23/17 showed normal liver function tests except for SGOT low at 11, normal TSHR and Depakote level therapeutic at 65.1. CBC from 11/23/17 was generally unremarkable. We are awaiting the patient's placement at a state psychiatric facility.
[2017-11-26 19:54] VITALS: BP 139/69
[2017-11-27 07:36] VITALS: BP 155/80
--- NOTE | 2017-11-27 10:47 | SOCIAL WORKER PROG NOTE PSYCH ---
Social Work Progress Note Progress Note Met with Falguni this morning. She was in the common area sitting with her feet up. She appeared groomed, stated she showered yesterday. She denied SI/HI, no AH/VH. She reports she "wants to go home." She spoke how she wants to go back to [facility] - stated she lived there in 1978 with her kids. She reports she has twins both 45yrs old and live in [place]. She has a daughter and a son - Mk. Her son has quadruplets and twins - total of 6 kids. She states she wants him to move into her home in [place]. She spoke clearly and seems as if she is more forthcoming than earlier in admission although not sure if what she speaks of is true and accurate. She appears much less irritable and dismissive. She tolerated a discussion about her family. She stated she has a boyfiend, Juanito who she has been in a relationship for the past 20yrs. Apparently, Juanito lives in [place], they see eachother and may get . She last saw him 1yr ago. She stated Juanito is going to visit her on the unit this weekend. She reports she will ask if her family consultant can speak with him. During discussion she made good eye contact, no irritability noted. She is ddoing her laundry on the unit. INformed her Claudia Byrd LCSW is leaving early today, but will see her on Thursday, 11/30. She rates depression 0/10 and anxiety 0/10. She stated politely - "I just want a cigarette, no one can take that away from me."
[2017-11-27 12:06] VITALS: BP 137/75
--- NOTE | 2017-11-27 14:36 | CP SOUTH PROGRESS NOTE PSYCH ---
Psych (Inpt) Progress Note Progress Note Include the following elements, when applicable: Involvement in the active treatment of the patient with behavioral observations of the patient and the patient's response to the treatment. Review of the ongoing treatment process in the context of the treatment plan. Indication of how multi-disciplinary staff members are carrying out the treatment plan. Plans for future interventions and recommendations for revision of the treatment plan. Liaison with other physicians/providers. Progress Note: Case and treatment plan discussed in team meeting. Staff reports that the patient attended group and shared with the group about her chronic pain, which she stated makes her apathetic. Appearing calm. Patient seen at 10:53 AM. She was in group prior to meeting with me in office. Patient has been conversing with me lately, which seems to be an improvement. Reports she is feeling better in terms of her cold. Mood is fine. Denies feeling sad, worried, hopeless, helpless, worthless or guilty. Denies suicidal and homicidal ideation. Denies auditory and visual hallucinations and paranoid ideation. Describes sleep, appetite and energy as fine. I discussed the idea of her going to a prison and she reports that she wants to return home to [place]. I asked her about her reports of having various home around the [place] and now in [place], and she reported that she has lots of money. I asked her to consider Risperdal Consta in addition to a prison placement. IMPRESSION: Slow progress. Continue present treatment plan. Patient remains on a waiting list for [facility]. Continue current medications as written.
[2017-11-27 15:36] VITALS: BP 129/66
[2017-11-27 19:55] VITALS: BP 138/66
[2017-11-28 08:30] VITALS: BP 144/80
[2017-11-28 12:08] VITALS: BP 117/57
--- NOTE | 2017-11-28 15:28 | CP SOUTH PROGRESS NOTE PSYCH ---
Psych (Inpt) Progress Note Progress Note The patient was seen during continuum of care. We discussed with the unit staff, reviewed the inpatient progress notes, and interviewed the patient 1:1. She was observed on the unit keeping to herself, having limited interaction with peers. Interacts appropriately with staff members but does not initiate conversation or contact. She is compliant with medication and reportedly participates some in activities on the unit. She is a short statured, overweight female, fairly well groomed, pleasant. Her discourse is evasive and vague at times. When asked about her discharge plan she reported she was ready to go home. She said she was going home to live with her 29 years old grandson. When we asked about the plans she reportedly had to moved to [place], she stated that she does have a home in [place] but she would rather stay in [place] for a little while. Says she has multiple homes in [facility] and in [place] as well. She said that she needed to have homes because she lived in a lot of places. She is also mentioning her who, according to her, is currently in [place] and has a lot of money from which she can have any sum she wants. She insisted that she is not a psychiatric patient. When asked about the admission and the fact that she is taking medication she responded she does what she is told because she does not want to get anybody upset. She also states that the medication is good for her, not wanting to elaborate and becoming slightly irritated when asked about psychiatric history. She was not able to follow the guidelines of the formal psychiatric interview, was very upset and irritated when asked if she had any suicidal thoughts, denying adamantly: "do you think I am crazy? Why would I do something like that ? My life is good" The patient denies auditory/visual hallucinations. She denied side effects from medication. She was noted by the unit staff to be sleeping and eating well. She does not have any problem with the activities of daily living(showers, dresses appropriately,eats in public) A/P-Psychotic disorder The patient continues to be disorganized and delusional, with poor insight and judgement,gravely disabled. We will continue present medication regimen, observation, symptom monitoring. The patient will be followed up daily by the unit psychiatrist. Discharge to a state facility([facility] residential care).
[2017-11-28 15:59] VITALS: BP 133/59
[2017-11-28 19:45] VITALS: BP 144/89
[2017-11-29 08:52] VITALS: BP 141/84
[2017-11-29 12:03] VITALS: BP 143/70
[2017-11-29 15:49] VITALS: BP 134/60
--- NOTE | 2017-11-29 19:22 | CP SOUTH PROGRESS NOTE PSYCH ---
Psych (Inpt) Progress Note Progress Note Seen for reevaluation. Discussed with unit staff. Seen 1:1. Pleasant, cooperative up to a point- becomes easily dismissive, stating she "politely excuse myself, this conversation is finished" Continues to be scatterred but appropriate. Continues to maintain that she will leave tomorrow to for her grandson's house and that she could call her to take her there. Not as upset when asked about suicidal ideation, she states, and also believes, that she will never hurt hersrlf or anybody else. There is no overt psychosis, denies A/VH, tolerates medication well. Says she feels congested and sudafed does not help. Wants benadryl because she says it is the only medication which was ever helpful to her. Continues to maintain that she is not a psychiatric patient. A/P Schizophrenia spectrum disorder, slowly improving. We will continue observation, symptom monitoring and medication management. Will be seen daily by the unit's psychiatrist/STEWARD DISHWASHER. Discharge planned to a correction setting. We will d/c sudafed and order benadryl prn.
[2017-11-29 19:53] VITALS: BP 140/62
[2017-11-30 07:38] VITALS: BP 143/78
--- NOTE | 2017-11-30 08:50 | SOCIAL WORKER PROG NOTE PSYCH ---
Social Work Progress Note Progress Note Called Clinic Coordinator Liana today and left a message. Spoke with Attorney Gaines. Asked if he got a hold of the grandson Mario? He reported that when he called the number he got Falguni's voicemail. I asked if he found out anything about her financial situation? He said he hasn't been able to speak with a blood bank booking clerk at [employer] and that he will try again this week. Told him that we are talking about possible alternatives to a state hospital like a board and care if she is eligible. He stated that whatever we feel is medically appropriate and safe. Met with Falguni, who was more visible out on the unit today. She was happy to meet with me and actually came to my office. Let her know if was nice to see her out of her room. She said she was attending more groups and socializing with others. She continues to say she wants to go home. Talks about returning to [place]. I told her that Attorney Gaines was trying to follow up on the phone numbers she has provided, but the number she gave for her grandson is her number. She said that was because she gave her phone to her grandson and we should leave him a message on that phone. She shared that her Grandson has 6 children (quadruplets and twins). She talked about living in [place] and [place] and traveling all over. She said her family has lots of money and they all move around alot. She said she was living in an apartment in [place] up until 2017. She shared that she gets alot of income from various pensions and disability. When asked what she did for work? 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 I asked about the psychiatist degree? She said she went to [employer] and studied there from 3054-3005 and maintains that she had a psychiatry degree. She said her went to [facility]. Concurrent review done with Willa from [employer]. 3 days authorized with review on 12/03/17.
[2017-11-30 12:06] VITALS: BP 124/76
--- NOTE | 2017-11-30 15:12 | CP SOUTH PROGRESS NOTE PSYCH ---
Psych (Inpt) Progress Note Progress Note Include the following elements, when applicable: Involvement in the active treatment of the patient with behavioral observations of the patient and the patient's response to the treatment. Review of the ongoing treatment process in the context of the treatment plan. Indication of how multi-disciplinary staff members are carrying out the treatment plan. Plans for future interventions and recommendations for revision of the treatment plan. Liaison with other physicians/providers. Progress Note: Lorenza Delgado MD's notes reviewed. Case and treatment plan discussed in team meeting. Staff reports that the patient is denying suicidal ideation. Watched TV. Patient seen at 1:57 PM. She was in group prior to meeting with me. More conversant with me. Cooperative with interview. States she is okay. He has no questions. Would like to get out of here and go to [place]. States she had a home there in [facility] but moved to [facility]. Reports she moved to 13 different homes in 3 years. She claims she has a car at her grandson's house at [address] [place] [address] in [place], [place]. Patient claims to have a Jaguar and a Linda. She seems grandiose. Patient states that she is in a psych hospital where she does not belong. States she has a stomach problem not a psychiatric problem. IMPRESSION: Slow progress. Continue present treatment plan. Seems delusional and grandiose. Awaiting the patient's placement at [facility]. In the interim, we will look at the possibility of placement at a assisted.
[2017-11-30 16:12] VITALS: BP 145/81
[2017-11-30 19:37] VITALS: BP 135/75
[2017-12-01 07:40] VITALS: BP 143/79
[2017-12-01 12:19] VITALS: BP 143/68
--- NOTE | 2017-12-01 13:51 | SOCIAL WORKER PROG NOTE PSYCH ---
Social Work Progress Note Progress Note No update regarding placement. Pt reports she wants out of here and has lived on her own for most of her life. Pt is informed having family involvement would be beneficial to confirming a safe place to live and that her mental health needs could be met, i.e. discharge planning. Pt continues to be guarded around having family involvement and is refusing contact. Pt has increaed her time spent in groups on the unit.
--- NOTE | 2017-12-01 14:17 | CP SOUTH PROGRESS NOTE PSYCH ---
Psych (Inpt) Progress Note Progress Note Include the following elements, when applicable: Involvement in the active treatment of the patient with behavioral observations of the patient and the patient's response to the treatment. Review of the ongoing treatment process in the context of the treatment plan. Indication of how multi-disciplinary staff members are carrying out the treatment plan. Plans for future interventions and recommendations for revision of the treatment plan. Liaison with other physicians/providers. Progress Note: Case and treatment plan discussed in team meeting. Staff reports that the patient has been joking and smiling. Patient said she is not seeing eye-to-eye with the doctor. Told peers she can't read. Attended a couple of groups. Patient seen at 1:28 PM. She was playing cards with peers prior to meeting with me in office. States she has been playing [employer]. She states "you know, Dr. Pelayo, I'm on a downhill slide." States she has no need to be here. I suggested she invite family in so we can check on collateral information. She does not want her grandson to see her in this setting. Patient claims that daughter was a [employer] star and is on crack. 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 I asked her more about this, as she has told me that her runs [employer]. She stated she had 3 marriages and that [employer] is run by an old boyfriend. States her late was in the [employer] business. Affect is calm and euthymic. Mood is fine. Rates sad mood 0/10. States she is "just pissed off." Rates anxiety 5/10. Feels hopeless but not helpless. Denies feeling worthless or guilty. Denies suicidal and homicidal ideation. Denies auditory and visual hallucinations and paranoid ideation. She stated "I have to get out of this hell. This is hell." IMPRESSION: Slow progress. Continue present treatment plan. The patient is on the waiting list for placement at [facility]. Continue current medications as ordered. Patient's conservator has not been able to identify the patient's financial assets, if any.
[2017-12-01 16:01] VITALS: BP 145/76
[2017-12-01 20:03] VITALS: BP 184/96
[2017-12-02 07:40] VITALS: BP 146/79
--- NOTE | 2017-12-02 08:42 | SOCIAL WORKER PROG NOTE PSYCH ---
Social Work Progress Note Progress Note Called [facility] and spoke with admissions. I was told Falguni is number 9 on their wait list. They asked that I fax over updated clinical information. Clinical was faxed. Met with Falguni who stated that this is a "serious issue" that she is still here. She talked about having been at [facility] and then going to [facility] program because she had several medical appts. She said they were helping her get to her appts. She said she took a taxi here because she needed medical help and no one is listening to her. She talked again about having Polio and a Club Foot. She talked about continuing to have problems with her bowels and that she is going to the bathroom 15-20x's a day. She says that her stool is coming out and going all over her clothes and the floor. I asked if she has shown her stool to nursing? She said she hasn't. I suggested she show someone if there is an issue. She also reported that she does not want to work with Dr. Pelayo anymore and wants her doctor changed. I told her she had the right to file a complaint with patient safety if she wasn't happy with her care. She talked about wanting to return to [place] as that is where she has been most happy. I let her know that the municipal court judge decided a couple of weeks ago that she needed to be conserved and that her conservator has been looking into her income and contacting family. She said she would like to talk to Electron Microprobe Operatorirma Gaines. I told her I would let him know of her request. She also said she has been attempting to reach family and has been leaving messages, but she is not getting through to her grandson or daughter. Sameera Wise from Patient Safety came to see Falguni. I was present for the discussion. She advocated that her doctor be changed to Dr. Mirza, due to the fact that she feels she clashes with Dr. Pelayo. She also reported all of the medical issues that she continues to be concerned about: particularly the issue with her bowels and her swollen right foot. Her righ foot definetely looks more swollen than it has. We let her know we would follow up on that with nursing and the doctor. She doesn't understand why she is being kept here on the unit and feels that she would be more appropriate on a medical floor. She mentioned having been in a nursing facility before in [place] and that she lived in an assisted living facility in [place] for a year. When asked why she left? She said "I wanted to come home." She was referring to the [place] address. She gave me the address that she says her daughter resides at in [place]. She asked why we couldn't send a letter? I told her that was something we could possibly do and that I would speak with her conservator about it. Talked to Ashley MONTOYA about the swelling in Falguni's right foot. She said they are monitoring it and will call HOD if necessary. She was given some pain medicaiton.
[2017-12-02 12:12] VITALS: BP 140/77
--- NOTE | 2017-12-02 13:36 | CP SOUTH PROGRESS NOTE PSYCH ---
Psych (Inpt) Progress Note Progress Note Include the following elements, when applicable: Involvement in the active treatment of the patient with behavioral observations of the patient and the patient's response to the treatment. Review of the ongoing treatment process in the context of the treatment plan. Indication of how multi-disciplinary staff members are carrying out the treatment plan. Plans for future interventions and recommendations for revision of the treatment plan. Liaison with other physicians/providers. Progress Note: Case and treatment plan discussed in team meeting. Staff reports that the patient has been calm and cooperative. Interactive with peers. Visible on the unit. Patient reportedly is #9 on the waiting list for [facility]. Patient seen at 10:34 AM. Patient was in an activity group prior to meeting with me in office. Affect is calm and euthymic. Patient is pleasant and communicative. States she is ready to sign a lease if I can get her a pack of cigarettes a day. Patient is talking extensively about history of bowel issues. She is rambling about multiple past surgeries. Complains of being in excruciating pain but does not appear to be in pain. Reports she called grandson last night but his voicemailbox was full. Reports she tried to reach her daughter and left a message. Patient is requesting a change in psychiatrist to Dr. Vidales but we will not be doing this, as it is not standard practice on the unit. She would like to talk to the patient advocate and I have requested that staff contact the patient advocate on her behalf. Continues to display poor insight and judgment. Patient remains grandiose and delusional. Appears to be tolerating Risperdal well. IMPRESSION: Slow progress. Continue present treatment plan. Remains gravely disabled. We are awaiting the patient's placement at a state facility.
--- NOTE | 2017-12-02 14:30 | IP INCIDENTAL NOTE PSYCH ---
Incidental Note Notation: Patient complains of ankle edema. Both feet appear edematous, R>L. We will request a hospitalist consult about this.
[2017-12-02 16:09] VITALS: BP 139/89
[2017-12-02 19:56] VITALS: BP 137/88
--- NOTE | 2017-12-02 20:02 | RADIOLOGY REPORT ---
EXAMINATION: XR ANKLE, RIGHT XR FOOT, RIGHT CLINICAL INFORMATION: Pain and swelling. COMPARISON: None TECHNIQUE: 3 views right ankle, 3 views right foot, non-weightbearing. FINDINGS: ORIF changes with arthrodesis of the ankle joint. Distal tibia and fibula appears to be fused. The talus appears to be surgically absent. Diffuse soft tissue swelling especially medially. There is no evidence of any hardware failure. Fusion changes appear satisfactory. Marked soft tissue swelling dorsally about the midfoot. No bony lesions evident. No soft tissue gas. IMPRESSION: Marked soft tissue swelling. Arthrodesis changes appear satisfactory. No focal bony lesion acutely.
[2017-12-03 07:55] VITALS: BP 146/71
--- NOTE | 2017-12-03 11:16 | Event Note ---
Event Note Event Note: Patient seen and examined on 12/02/17. I was called to see the patient for right foot swelling. Patient claims that she has a history of clubfoot. She was complaining of pain in her right foot. Her foot was also swollen. She was also complaining of lower back pain and she does have some psoriasis patches on the lower back. Vital Signs Date Time Temp Pulse Resp B/P B/P Pulse O2 O2 Flow FiO2 Mean Ox Delivery Rate 12/03 0755 98.0 81 146/71 12/03 0748 99.5 87 20 137/88 12/02 2009 99.5 87 137/88 12/02 1956 99.5 87 137/88 12/02 1609 75 139/89 12/02 1528 Room Air 12/02 1212 68 140/77 on exam; + psoriasis patches on lower back. right foot with swelling andf tender on palpation. She does have ROM but painful at right ankle. No erythema, no warmth. No labs. A/P; 67-year-old female with multiple psych issues, I was called to see the patient for the right foot swelling and lower back pain. I ordered right foot and right ankle x-ray. X-ray results came back today and showed Marked soft tissue swelling. Arthrodesis changes appear satisfactory. No focal bony lesion acutely. I have ordered Lidex cream for the psoriasis. I advised to take Tylenol as needed for pain. Patient also has naproxen ordered. I would also had Lidoderm patch. I will get LS spine x-ray and I will recommend getting a podiatry consult for her.
[2017-12-03 11:58] VITALS: BP 137/64
--- NOTE | 2017-12-03 13:08 | CP SOUTH PROGRESS NOTE PSYCH ---
Psych (Inpt) Progress Note Progress Note Include the following elements, when applicable: Involvement in the active treatment of the patient with behavioral observations of the patient and the patient's response to the treatment. Review of the ongoing treatment process in the context of the treatment plan. Indication of how multi-disciplinary staff members are carrying out the treatment plan. Plans for future interventions and recommendations for revision of the treatment plan. Liaison with other physicians/providers. Progress Note: Case and treatment plan discussed in team meeting. Staff reports that the patient has been chatty. Does not like her doctor. Said grandson is too busy to come in for a meeting. Staff reports that the patient asked if she could have a random boy come in. Complains about pain, including swelling at ankles. Hospitalist is involved. SERVICE DATE: 12/02/17- EXAM TYPE: RAD - XRY-ANKLE 3 OR MORE VIEWS R; XRY-FOOT COMPLETE, R EXAMINATION: XR ANKLE, RIGHT XR FOOT, RIGHT CLINICAL INFORMATION: Pain and swelling. COMPARISON: None TECHNIQUE: 3 views right ankle, 3 views right foot, non-weightbearing. FINDINGS: ORIF changes with arthrodesis of the ankle joint. Distal tibia and fibula appears to be fused. The talus appears to be surgically absent. Diffuse soft tissue swelling especially medially. There is no evidence of any hardware failure. Fusion changes appear satisfactory. Marked soft tissue swelling dorsally about the midfoot. No bony lesions evident. No soft tissue gas. IMPRESSION: Marked soft tissue swelling. Arthrodesis changes appear satisfactory. No focal bony lesion acutely. Patient seen at 10:39 AM. States she is doing fairly poorly because of pain. States she cannot walk and cannot sit. States she is really done with all this. Reports she was able to get phone numbers for family off of her cell phone. I advised her that we need a safe discharge plan for her. Complaints of ankle edema right greater than left. Reports her back is a mess. Reports mood is poor because of pain. Denies feeling sad or anxious. States she is mad. Denies suicidal and homicidal ideation. Denies auditory and visual hallucinations. When asked if anyone is out to harm her, she responded "you." IMPRESSION: Slow progress. Continue present treatment plan. Await input from hospitalist. Patient remains on waiting list for [facility]. Continue current medications as written.
--- NOTE | 2017-12-03 15:37 | SOCIAL WORKER PROG NOTE PSYCH ---
Social Work Progress Note Progress Note Falguni was able to get some contact phone numbers off of her phone. She apparently made some calls and left some messages. She reports she did get a hold of a friend (Gabbie) from [place]. She reported that this friend will be visiting her. I asked to make some calls with her, but she refused. She wanted to talk with me about the timeline of events leading up to her hospital stay. She talked about traveling by plane from [place] to [place] to get back to the house in [place]. She said when she got there, there were people living there destroying it and she called the police. She was encouraged to go to a [facility]. She said she resided there for a period of time, but there was no smoking and she needed to smoke. She was caught smoking on the premesis several times. They eventually called the police. She was taken to [facility]. She reported that she kept getting referred to psych. Eventually stayed at [facility]. She reported that she was at [facility] so that they could help her get to several different medical appts. They had apparently also been asking her to complete a CAN Assessment at [facility], but she could never get to it. They were going to complete it with her at [facility], but she couldn't do it at that moment and she said they ended up calling an ambulance and having her transported back to the hospital again. She reports that she was discharged after being at [facility] and went to a [facility]. She felt the need to share all of this with me and share that she is tired of being shifted around and misunderstood. She reported that she "hates" Dr. Pelayo and that she wants to hire the congressional district aide to damien. I told her that I was trying to contact her conservator so she can have a meeting with him to discuss all of this. Informed her that I had left him a message this morning and was waiting for a call back. She wants to appeal her involuntary commitment. Concurrent review done with [facility]. Approved through 12/07 with review on 12/07.
[2017-12-03 16:05] VITALS: BP 133/72
--- NOTE | 2017-12-03 17:43 | RADIOLOGY REPORT ---
EXAMINATION: XR LUMBOSACRAL SPINE CLINICAL INFORMATION: Back pain. COMPARISON: CT abdomen and pelvis 10/14/2017 TECHNIQUE: 2 views of the lumbar spine were obtained. FINDINGS: Diffuse osteopenia. There are 5 nonrib-bearing lumbar-type vertebral bodies demonstrating normal vertebral body height and alignment. Multilevel degenerative changes are again noted throughout the lumbar spine. Vertebral augmentation changes are again seen at the L1, L3 and L4 vertebral bodies. Multiple old compression deformities are again noted including T7, T8, T9, L2 and L5. No acute fractures identified. Sacroiliac joints are symmetric. IMPRESSION: No acute osseous abnormality. Degenerative changes and chronic appearing compression fractures.
[2017-12-03 19:50] VITALS: BP 121/90
--- NOTE | 2017-12-03 20:02 | Cons- Podiatry ---
General Information and HPI Consulting Request Date of Consult: 11/26/17 Requested By: Robert Pelayo MD Reason for Consult: RLE edema, painful toenails. Source of Information: patient Exam Limitations: confusion, poor historian History of Present Illness: This is a 67 y/o morbidly obese female admitted for schizophrenia and psychotic break. Podiatry is consulted for RLE edema and painful elongated toenails. Pt reports that she had a right ankle fusion many years ago in [facility] to treat drop foot secondary to polio. Allergies/Medications Allergies: Coded Allergies: Sulfa (Sulfonamide Antibiotics) (Severe, ANAPHYLAXIS 08/17/17) codeine (Severe, ANAPHYLAXIS 08/17/17) penicillin G (Severe, ANAPHYLAXIS 08/17/17) adhesive tape (RASH 10/13/17) amlodipine (RASH 10/16/17) Home Med List: Dicyclomine Hydrochloride (Bentyl) 10 MG CAPSULE 1 CAP PO TID PRN pain Fluocinonide 0.05 % OINT...G. 1 MARGIE TOP BID psoriasis apply to affected area(s) Hydroxyzine HCl (hydrOXYzine HCl) 25 MG TABLET 1 TAB PO QPM PRN INSOMNIA Metoprolol Tartrate 50 MG TABLET 50 MG PO BID HTN (Reported) Nitrofurantoin Monohyd/M-Cryst (Macrobid 100 MG Capsule) 100 MG CAPSULE 1 CAP PO BID uti with food Current Medications: Current Medications Sig/Hanna Start time Last Medication Dose Route Stop Time Status Admin Acetaminophen 650 MG Q4P PRN 10/14 0215 AC 12/02 PO 1320 Atorvastatin Calcium 20 MG 1700 10/20 1700 12/03 PO 1610 Benztropine Mesylate 1 MG BID PRN 11/20 1300 AC 11/20 IM 1431 Clonazepam 1.5 MG 12/01 AC 12/02 PO 12/08 Diphenhydramine HCl 50 MG .STK-MED ONE 12/02 2013 DC PO 12/02 2013 Diphenhydramine HCl 50 MG TID PRN 11/30 1999 AC 12/02 PO 2014 Divalproex Sodium 500 MG 0800,1400,11/12 0800 AC 12/03 PO 1330 Fluocinonide 1 MARGIE BID 12/02 2200 AC 12/03 TOP 1322 Furosemide 20 MG DAILY 12/03 1058 AC 12/03 PO 1200 Gabapentin 300 MG 0800,1400,11/12 08 AC 12/03 PO 1330 Haloperidol 5 MG BID PRN 11/20 1414 AC 11/20 IM 1431 Levothyroxine Sodium 0.05 MG DAILY AC 10/16 0700 AC 12/03 PO 0731 Lidocaine 1 PAT DAILY 12/03 1100 AC 12/03 EXT 1326 Melatonin 3 MG AT BEDTIME 11/07 2200 AC 12/02 PO 2010 Metoprolol Tartrate 50 MG 0800,11/12 08 AC 12/03 PO 0748 Morphine Sulfate 15 MG 12/03 1015 AC 12/03 PO 1039 Naproxen 500 MG Q12P PRN 11/25 1230 AC 12/02 PO 1316 Risperidone 1 MG 11/25 08 AC 12/03 PO 0748 Risperidone 2 MG 11/24 AC 12/02 PO 2009 Past History Medical History Neurological: seizure EENT: NONE Cardiovascular: hypertension Respiratory: pneumonia Gastrointestinal: NONE Hepatic: NONE Renal: NONE Musculoskeletal: chronic back pain Psychiatric: NONE Endocrine: hypothyroidism Blood Disorders: HEP A & C Cancer(s): CERVICAL CA 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 Exam & Diagnostic Data Vital Signs and I&O Vital Signs Date Time Temp Pulse Resp B/P B/P Pulse O2 O2 Flow FiO2 Mean Ox Delivery Rate 12/03 1950 98.5 98 121/90 12/03 1605 77 133/72 12/03 1158 71 137/64 12/03 1144 Room Air 12/03 0755 98.0 81 146/71 12/03 0748 99.5 87 20 137/88 12/02 2009 99.5 87 137/88 Intake & Output 12/03 1600 12/03 0812/03 0000 12/02 1600 12/02 0000 Intake Total Output Total Balance Patient 170 lb 170 lb Weight Physical Exam: Nonpalpable pedal pulses secondary to +4 RLE nonpitting edema, +2 LLE nonpitting edema. Normal temperature gradient warm to cool proximal to distal in BLE. CFT 3s x 10. Pt has large scars on the anterior and posterior right ankle consistent with arthrodesis and Achilles release. There is some residual right forefoot valgus. All ten of the patient's toenails are thickened, elongated, with subungual debris, brown discoloration and tenderness to palpation. 5/5 muscle power in all lower extremity compartments, and she ambulates independently in the oliva without incident. Absence of hair growth on the dorsum of both feet. Atrophic skin dorsal feet b/l. No erythema, no maceration, no open lesions, no calor. Last 24 Hours of Labs: Laboratory Tests 12/03 1117 Chemistry Sodium (137 - 145 mmol/L) 137 Potassium (3.5 - 5.1 mmol/L) 5.2 H Chloride (98 - 107 mmol/L) 100 Carbon Dioxide (22 - 30 mmol/L) 26 Anion Gap (5 - 16) 11 BUN (7 - 17 mg/dL) 12 Creatinine (0.5 - 1.0 mg/dL) 0.5 Estimated GFR (>60 ml/min) > 60 BUN/Creatinine Ratio (7 - 25 %) 24.0 Assessment/Plan Assessment/Plan 67 y/o female s/p successful right ankle arthrodesis with multiple medical problems and schizophrenia with clinical evidence of PVD, and painful bilateral onychomycosis. Pt seen and evaluated XR reviewed from yesterday. I agree with the radiologist's assessment. All 10 of the patient's toenails were trimmed with a nail nipper Would recommend low-grade compression stockings and BLE elevation for the chronic edema. Would also consider diuretic to control HTN if not contraindicated by other medications. I am available for further discussion on this case at [phone] Will f/u as needed. Reconsult prn. Consult Acknowledgment - Thank you for your consult request.
[2017-12-04 07:56] VITALS: BP 11/83
--- NOTE | 2017-12-04 10:18 | CP SOUTH PROGRESS NOTE PSYCH ---
Psych (Inpt) Progress Note Progress Note Covering for Robert Pelayo MD. I reviewed Robert Pelayo MD's notes for the past few days Case and treatment plan discussed in team meeting. Staff reports that the patient has been chatty. Does not like her doctor. Mental status examination: States she is in pain especially when she walks Reports mood is poor because of pain. Denies feeling anxious. She denies suicidal and homicidal ideation. She denies auditory and visual hallucinations. She was focused on getting rid of the conservatorship. Assessment: Slow progress. Continue present treatment plan. Await input from hospitalist. Patient remains on waiting list for [facility]. Treatment plan update Increase morphine sulfate 15 mg 3 times a day Increase risperidone to 2 mg in the morning and 3 mg at bedtime Continue other medications as written. appears to be fused. The talus appears to be surgically absent. Diffuse soft tissue swelling especially medially. There is no evidence of any hardware failure. Fusion changes appear satisfactory. Marked soft tissue swelling dorsally about the midfoot. No bony lesions evident. No soft tissue gas. IMPRESSION: Marked soft tissue swelling. Arthrodesis changes appear satisfactory. No focal bony lesion acutely. Patient seen at 10:39 AM. States she is doing fairly poorly because of pain. States she cannot walk and cannot sit. States she is really done with all this. Reports she was able to get phone numbers for family off of her cell phone. I advised her that we need a safe discharge plan for her. Complaints of ankle edema right greater than left. Reports her back is a mess. Reports mood is poor because of pain. Denies feeling sad or anxious. States she is mad. Denies suicidal and homicidal ideation. Denies auditory and visual hallucinations. When asked if anyone is out to harm her, she responded "you." IMPRESSION: Slow progress. Continue present treatment plan. Await input from hospitalist. Patient remains on waiting list for [facility]. Continue current medications as written.
--- NOTE | 2017-12-04 10:44 | SOCIAL WORKER PROG NOTE PSYCH ---
Social Work Progress Note Progress Note Called Assembler Ping Pong Table Estefaníatosha again, left a voicemail. Falguni was on the phone early afternoon. She stopped me and told me she was talking to the [facility] in [place]. She asked if I would like to talk to their staff. She reported she was trying to get her belongings that were left there. We moved to a more private space and made a call to [facility] [phone]. Spoke with Myriam. She reported that Falguni had purchased a Chromebook while there and that she had it locked up in the safe. Falguni asked about her other belongings such as her paperwork and clothes. Myriam stated that she would need to check in the basement as they typically throw things out after 2 weeks. I told them Falguni is conserved and I would like to tell her conservator about her things so he could possibly pick them up. I asked if they had any contact with family or anyone when she was there? She said no. She said they were working on finding Falguni housing. She reported that she started to decompensate and eventually they called an ambulance that took her to [facility]. She was discharged on 10/12. I gave Myriam my contact info so she could check her additional belongings and let me know what was there. Falguni continues to talk about her dislike of her current doctor. Doesn't understand why she can't change. Talked about looking at alternative placements like [facility] in [facility] if we can confirm her financial situation. She wants to pay her [employer] Bill. I told her that her conservator should be doing those things for her. She said her cell number is [phone]. Myriam from [facility] called back to tell me that Falguni also had a tote there with lots of paperwork. She doesn't see her clothes. I told her I will try and coordinate things with her conservator for next week.
[2017-12-04 12:02] VITALS: BP 138/50
[2017-12-04 16:15] VITALS: BP 133/72
[2017-12-04 19:49] VITALS: BP 108/64
[2017-12-05 07:45] VITALS: BP 119/46
[2017-12-05 07:50] VITALS: BP 122/70
[2017-12-05 11:57] VITALS: BP 126/58
--- NOTE | 2017-12-05 13:35 | CP SOUTH PROGRESS NOTE PSYCH ---
Psych (Inpt) Progress Note Progress Note Include the following elements, when applicable: Involvement in the active treatment of the patient with behavioral observations of the patient and the patient's response to the treatment. Review of the ongoing treatment process in the context of the treatment plan. Indication of how multi-disciplinary staff members are carrying out the treatment plan. Plans for future interventions and recommendations for revision of the treatment plan. Liaison with other physicians/providers. Progress Note: Pt had a variety of complaints today. Attempt reconstruct the events leading up to hospitalization with no avail. Continued pitting edema noted. Pt denies SI or HI. Stated several times that she is here because of a "mix up" or "misunderstanding". Current Medications Sig/Hanna Start time Last Medication Dose Route Stop Time Status Admin Acetaminophen 650 MG Q4P PRN 10/14 0215 AC 12/02 PO 1320 Atorvastatin Calcium 20 MG 17010/20 1700 AC 12/04 PO 1612 Benztropine Mesylate 1 MG BID PRN 11/20 1300 AC 11/20 IM 1431 Clonazepam 1.5 MG 12/01 2045 AC 12/04 PO 12/08 204 1939 Diphenhydramine HCl 50 MG .STK-MED ONE 12/04 1946 DC PO 12/04 1947 Diphenhydramine HCl 50 MG TID PRN 11/29 PO 2143 Divalproex Sodium 500 MG 0800,1400,11/12 0800 AC 12/05 PO 0751 Fluocinonide 1 MARGIE BID 12/02 2200 AC 12/04 TOP 1940 Furosemide 20 MG ONCE ONE 12/05 1345 AC PO 12/05 1346 Furosemide 20 MG DAILY 12/03 1058 AC 12/05 PO 0755 Gabapentin 300 MG 0800,1400,11/12 0800 AC 12/05 PO 0751 Haloperidol 5 MG BID PRN 11/20 1414 AC 11/20 IM 1431 Levothyroxine Sodium 0.05 MG DAILY AC 10/16 0700 AC 12/05 PO 0520 Lidocaine 1 PAT DAILY 12/03 1100 AC 12/05 EXT 0752 Melatonin 3 MG AT BEDTIME 11/07 2200 AC 12/04 PO 2143 Metoprolol Tartrate 50 MG 0800,11/12 0800 AC 12/05 PO 0753 Morphine Sulfate 15 MG 0800,1400,12/04 1400 AC 12/05 PO 0754 Naproxen 500 MG Q12P PRN 11/25 1230 AC 12/02 PO 1316 Risperidone 3 MG 12/04 AC 12/04 PO 1940 Risperidone 1 MG 0800 11/25 0800 AC 12/05 PO 0751 Laboratory Tests 12/03 1117 Chemistry Sodium (137 - 145 mmol/L) 137 Potassium (3.5 - 5.1 mmol/L) 5.2 H Chloride (98 - 107 mmol/L) 100 Carbon Dioxide (22 - 30 mmol/L) 26 Anion Gap (5 - 16) 11 BUN (7 - 17 mg/dL) 12 Creatinine (0.5 - 1.0 mg/dL) 0.5 Estimated GFR (>60 ml/min) > 60 BUN/Creatinine Ratio (7 - 25 %) 24.0 Vital Signs Date Time Temp Pulse Resp B/P B/P Pulse O2 O2 Flow FiO2 Mean Ox Delivery Rate 12/05 1157 69 126/58 12/05 0753 71 122/70 12/05 0750 122/70 12/05 0745 96.5 71 119/46 12/04 194 99.1 84 108/64 12/04 1939 84 108/64 12/04 1615 79 133/72 MSE General appearance: good hygiene and grooming; Attitude: cooperative; Eye contact: appropriate; Movement: no psychomotor agitation or slowing; Speech: nl fluency, nl rate/rhythm, nl volume, nl prosody; Mood: "terrible" Affect: irritable, odd flat, appropriate, constricted, non-labile, congruent; Thought process: linear and goal-directed; Thought content: denied SI or HI, no paranoid ideation; Perception: denied hallucinations- auditory, visual, does not appear to be responding to internal stimuli; I/J: limited A/P: Pt with schizophrenia with continued psychotic sx. -Continue current medication regimen except lasix 20mg now for continued pitting edema - Repeat BMP as prev elevated K -Encourage integration into the milieu
[2017-12-05 15:53] VITALS: BP 117/87
[2017-12-05 19:45] VITALS: BP 137/69
[2017-12-06 07:42] VITALS: BP 134/64
--- NOTE | 2017-12-06 10:45 | CP SOUTH PROGRESS NOTE PSYCH ---
Psych (Inpt) Progress Note Progress Note Include the following elements, when applicable: Involvement in the active treatment of the patient with behavioral observations of the patient and the patient's response to the treatment. Review of the ongoing treatment process in the context of the treatment plan. Indication of how multi-disciplinary staff members are carrying out the treatment plan. Plans for future interventions and recommendations for revision of the treatment plan. Liaison with other physicians/providers. Progress Note: Pt notes that edema continues. Taking lasix. Amenable to the compression stockings. Denies SI or HI. Current Medications Sig/Hanna Start time Last Medication Dose Route Stop Time Status Admin Acetaminophen 650 MG Q4P PRN 10/14 0215 AC 12/02 PO 1320 Atorvastatin Calcium 20 MG 1700 10/20 1700 12/05 PO 1655 Benztropine Mesylate 1 MG BID PRN 11/20 1300 AC 11/20 IM 1431 Clonazepam 1.5 MG 12/01 2045 12/05 PO 12/08 204 1949 Diphenhydramine HCl 50 MG .STK-MED ONE 12/05 2156 DC PO 12/05 2157 Diphenhydramine HCl 50 MG TID PRN 11/29 PO 2156 Divalproex Sodium 500 MG 0800,1400,11/12 0800 AC 12/06 PO 0744 Fluocinonide 1 MARGIE BID 12/02 2200 AC 12/05 TOP 2154 Furosemide 20 MG ONCE ONE 12/05 1345 DC 12/05 PO 12/05 1346 1435 Furosemide 20 MG DAILY 12/03 1058 AC 12/06 PO 0744 Gabapentin 300 MG 0800,1400,11/12 0800 AC 12/06 PO 0744 Haloperidol 5 MG BID PRN 11/20 1414 11/20 IM 1431 Levothyroxine Sodium 0.05 MG DAILY AC 10/16 0700 12/06 PO 0653 Lidocaine 1 PAT DAILY 12/03 1100 12/06 EXT 0743 Melatonin 3 MG AT BEDTIME 11/07 2200 AC 12/05 PO 2154 Metoprolol Tartrate 50 MG 0800,11/12 0800 AC 12/06 PO 0744 Morphine Sulfate 15 MG 0800,1400,12/04 1400 AC 12/06 PO 0745 Naproxen 500 MG Q12P PRN 11/25 1230 AC 12/02 PO 1316 Risperidone 3 MG 12/04 AC 12/05 PO 1950 Risperidone 1 MG 11/25 08 AC 12/06 PO 0744 Laboratory Tests 12/06 12/03 0645 1117 Chemistry Sodium (137 - 145 mmol/L) 140 137 Potassium (3.5 - 5.1 mmol/L) 4.2 5.2 H Chloride (98 - 107 mmol/L) 101 100 Carbon Dioxide (22 - 30 mmol/L) 30 26 Anion Gap (5 - 16) 8 11 BUN (7 - 17 mg/dL) 25 H 12 Creatinine (0.5 - 1.0 mg/dL) 0.5 0.5 Estimated GFR (>60 ml/min) > 60 > 60 BUN/Creatinine Ratio (7 - 25 %) 50.0 H 24.0 Vital Signs Date Time Temp Pulse Resp B/P B/P Pulse O2 O2 Flow FiO2 Mean Ox Delivery Rate 12/06 0744 96.5 69 20 134/64 12/06 0742 96.5 69 134/64 12/05 1950 96 137/69 12/05 1945 97.5 96 137/69 12/05 1553 74 117/87 12/05 1157 69 126/58 MSE General appearance: good hygiene and grooming; Attitude: cooperative; Eye contact: appropriate; Movement: no psychomotor agitation or slowing; Speech: nl fluency, nl rate/rhythm, nl volume, nl prosody; Mood: "OK" Affect: irritable, odd flat, appropriate, constricted, non-labile, congruent; Thought process: linear and goal-directed; Thought content: denied SI or HI, no paranoid ideation; Perception: denied hallucinations- auditory, visual, does not appear to be responding to internal stimuli; I/J: limited A/P: Pt with schizophrenia with continued psychotic sx. -Continue current medication regimen - Repeat BMP as prev elevated K, nl K at 4.2 -Encourage integration into the milieu
[2017-12-06 12:28] VITALS: BP 108/64
[2017-12-06 15:35] VITALS: BP 144/84
[2017-12-06 20:00] VITALS: BP 124/77
[2017-12-07 07:47] VITALS: BP 139/69
--- NOTE | 2017-12-07 08:52 | SOCIAL WORKER PROG NOTE PSYCH ---
Social Work Progress Note Progress Note Called Tire Beader Maker Liana and left a message. He and I connected later this morning. He said he was able to find out that she was getting 1772.00 a month from Social Security. This is going to [employer]. He said the statements are being mailed to [address] in [place], which is an [place]. I asked if he had called the daughter's phone number? He said he had not and that he would try later today. I also gave him the address Falguni gave me last week for her daughter. I reported that she has belongings at [facility] in [place]. He would prefer that the belongings come here to [place] or he will send them a shipping label. I told him that Falguni would like to meet with him. The earliest he can come is 12/15 early afternoon. I asked if I had permission to start exploring board and care facilities? He said that was fine. Met with Falguni who was just waking up and appeared somewhat groggy. She reports talking to friends- specifically a Gabbie. She reports that Gabbie works and lives at the [employer]. She is focused on wanting to appeal the conservatorship and damien the court for not being mentally disabled. Called Willa at [facility] for continued stay 3 days authorized with review on 12/10.
[2017-12-07 12:08] VITALS: BP 136/65
--- NOTE | 2017-12-07 15:47 | CP SOUTH PROGRESS NOTE PSYCH ---
Psych (Inpt) Progress Note Progress Note Include the following elements, when applicable: Involvement in the active treatment of the patient with behavioral observations of the patient and the patient's response to the treatment. Review of the ongoing treatment process in the context of the treatment plan. Indication of how multi-disciplinary staff members are carrying out the treatment plan. Plans for future interventions and recommendations for revision of the treatment plan. Liaison with other physicians/providers. Progress Note: Dr. Mirza's and Vida's notes reviewed. Risperdal was increased to 1 mg qAM and 3 mg qHS. MS was increased to 15 mg t.i.d. Lasix 20 mg daily was added for ankle edema. Patient had a basic metabolic profile on 12/06/17 and it was significant for BUN high at 25, BUN to creatinine ratio high at 50, normal potassium at 4.2. Nursing staff informed me that patient did better over the weekend. She has been wearing makeup. Appearing more clear and more social. More appropriately- behaved. Patient seen at 11:48 AM. She was in group prior to meeting with me in office. She is less irritable. Wearing makeup. Patient reports she found her contact phone numbers. States that she spoke with her [id number], who texted the patient's daughter. Patient reports she spoke with 2 female friends who live in [place]. Patient reports that she receives $1772 monthly from her pension. States she is entitled to $1200 a month in VA benefits because her served in the . She reports she is owed back money from the VA for the past 23 years. Reports pain has been better since morphine dose was increased. Reports foot is still swollen. Reports lidocaine patch is not helping. States she does not feel well it does not feel good about being here. States this is an incarceration. Rates pain 8/10 and sad mood 0/10. Rates anxiety 3/10 because she wants discharge. Denies feeling hopeless, helpless, worthless or guilty. Denies suicidal and homicidal ideation. Denies auditory and visual hallucinations. When asked if anyone is out to harm her, she responded that I am. 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 IMPRESSION: Slow progress. Continue present treatment plan. We will work with conservator of person about alternatives to continued [facility].
[2017-12-07 16:06] VITALS: BP 131/63
[2017-12-07 19:53] VITALS: BP 134/58
[2017-12-08 08:03] VITALS: BP 132/54
--- NOTE | 2017-12-08 08:52 | SOCIAL WORKER PROG NOTE PSYCH ---
Social Work Progress Note Progress Note Spoke with Myriam at [facility] to arrange for Falguni's belongings to be brought here to [place]. Myrima will come to [place] tomorrow afternoon with her Chromebook and papers. Faxed a referral to Jatinder Bardales in [facility] and left Emmy Nance ([phone] [phone]) a message Called [place] [facility] and spoke with Indira Bojorquez (material control clerk) to find out information about Falguni's rights about appealing her commitment and conservatorship. Indira stated that really Falguni should discuss all of this with her conservator and he should determine if she is capable of being released. If he determines that, she can file a [id number] petition for release from confinement. She also can pursue terminating her conservatorship, but she would need to follow up outside of the hospital at the court for that process. Met with Falguni and informed her of the above information. Explained that if she wants to look at terminating the conservatorship she would need to f/u at the [place] [facility] once out of the hospital. I told her that I was working on trying to find alternatives to the [facility]. She said she would prefer to stay in the [facility]. Sounded short of breath and a bit wheezy today. Told me she really wasn't feeling well. I spoke to the charge nurse about this. Encouraged her to rest and elevate her foot which is still swollen.
--- NOTE | 2017-12-08 11:07 | SOCIAL WORKER PROG NOTE PSYCH ---
Social Work Progress Note Progress Note Called [place] [facility] and spoke with Indira Bojorquez (wine and spirits clerk) to find out information about Falguni's rights about appealing her commitment and conservatorship. Indira stated that really Falguni should discuss all of this with her conservator and he should determine if she is capable of being released. If he determines that, she can file a [id number] petition for release from confinement. She also can pursue terminating her conservatorship, but she would need to follow up outside of the hospital at the court for that process.
[2017-12-08 12:08] VITALS: BP 135/48
--- NOTE | 2017-12-08 15:02 | PN- Att Addend ---
Attending Addendum Attending Brief Note S: Called to follow-up with multiple complaints. The patient had been placed on furosemide for LE swelling and BP control. She c/o increased urination and states no change in LE swelling. Has had Right ankle/calf discomfort that is worse (distant h/o athrodesis). Also nursing said she is "wheezing" and c/o mild pleurisy. Patient also c/o frequent loose stools (nursing states she has not shown them any). Has h/o bowel surgery. O: VS: Vital Signs Date Time Temp Pulse Resp B/P B/P Pulse O2 O2 Flow FiO2 Mean Ox Delivery Rate 12/08 1545 75 135/63 12/08 1523 Room Air 12/08 1208 62 135/48 96 12/08 0937 97.2 69 20 132/54 Intake & Output 12/08 1600 Intake Total Output Total Balance Patient 170 lb Weight Current Medications Sig/Hanna Start time Last Medication Dose Route Stop Time Status Admin Acetaminophen 650 MG Q4P PRN 10/14 0215 AC 12/02 PO 1320 Atorvastatin Calcium 20 MG 1700 10/20 1700 AC 12/07 PO 1817 Benztropine Mesylate 1 MG BID PRN 11/20 1300 AC 11/20 IM 1431 Clonazepam 1.5 MG 12/01 2045 AC 12/07 PO 12/15 204 1939 Diphenhydramine HCl 50 MG .STK-MED ONE 12/07 1822 DC PO 12/07 1823 Diphenhydramine HCl 50 MG TID PRN 11/30 1999 AC 12/08 PO 1503 Divalproex Sodium 500 MG 0800,1400,11/12 0800 AC 12/08 PO 1501 Fluocinonide 1 MARGIE BID 12/02 2200 AC 12/07 TOP 1942 Furosemide 20 MG DAILY 12/03 1058 DC 12/08 PO 0937 Gabapentin 300 MG 0800,1400,11/12 0800 AC 12/08 PO 1502 Guaifenesin 10 ML Q4P PRN 12/08 1515 AC PO Haloperidol 5 MG BID PRN 11/20 1414 AC 11/20 IM 1431 Hydrochlorothiazide 12.5 MG DAILY 12/09 1000 AC PO Levothyroxine Sodium 0.05 MG DAILY AC 10/16 0700 AC 12/08 PO 0606 Lidocaine 1 PAT DAILY 12/03 1100 AC 12/08 EXT 0936 Melatonin 3 MG AT BEDTIME 11/07 2200 AC 12/07 PO 1937 Metoprolol Tartrate 50 MG 799,11/12 0800 AC 12/08 PO 0937 Morphine Sulfate 15 MG 0800,1400,12/04 1400 AC 12/08 PO 1504 Naproxen 500 MG Q12P PRN 11/25 1230 AC 12/02 PO 1316 Risperidone 3 MG 12/04 AC 12/07 PO 1938 Risperidone 1 MG 11/25 08 AC 12/08 PO 0937 Chest: minimal upper airway rhonchi that cleared immediately post cough, no wheeze; ? mild tenderness at costal cartilages Cor: RRR nl S1, S2 w/o murm Abd: BS+, obese, soft Ext: asymmetric swelling R>L (right 1+ edema with some posterior calf tenderness w/o cords). Pulse Ox 96% RA Impression/Plan: #Respiratory Symptoms- few rhonchi, no wheeze, not hypoxic or tachycardic. Has pleuritic symptoms that may be related to costochondritis. Doubt pulmonary embolism. Plan: Trial of robitussin q4h prn at present and follow. #LE Edema/Pain- most likely secondary to venous insufficiency. Patient has not been wearing her compression stockings. Had h/o artrhodesis right ankle in distant past. Plan: Will d/c furosemide and change to HCTZ 12.5 mg daily in morning. Encourage wearing compression stockings. Check venous US right leg to evaluate for DVT (doubt). #Diarrhea- loose BM's reported by patient. No recent antibiotics. Has distant h/ o bowel surgery. Plan: Check stool for C-difficile and nurses to document stools. Will follow. Addendum: Venous US negative for DVT.
[2017-12-08 15:45] VITALS: BP 135/63
--- NOTE | 2017-12-08 16:35 | ULTRASOUND REPORT ---
EXAMINATION: US TRIPLEX LOWER EXTREMITY, RIGHT CLINICAL INFORMATION: Right leg pain and swelling COMPARISON: None TECHNIQUE: Color-flow triplex imaging with spectral analysis and compression Doppler were performed on the lower extremity. FINDINGS: Respiratory variation, normal compression and augmented flow are noted throughout the lower extremity. The visualized common femoral vein, superficial femoral vein, profunda femoral vein, popliteal vein and midcalf peroneal and posterior tibial venous segments show no evidence of deep venous thrombosis. There is no Braswell's cyst. IMPRESSION: Normal triplex scan without evidence of deep venous thrombosis involving the lower extremity.
--- NOTE | 2017-12-08 16:57 | CP SOUTH PROGRESS NOTE PSYCH ---
Psych (Inpt) Progress Note Progress Note Include the following elements, when applicable: Involvement in the active treatment of the patient with behavioral observations of the patient and the patient's response to the treatment. Review of the ongoing treatment process in the context of the treatment plan. Indication of how multi-disciplinary staff members are carrying out the treatment plan. Plans for future interventions and recommendations for revision of the treatment plan. Liaison with other physicians/providers. Progress Note: Case and treatment plan discussed in team meeting. Staff reports that the patient appears calm and tired. Reportedly wants to damien everyone. Wants to get out of being conserved. We discussed Risperdal Consta in team meeting. Patient seen at 3:19 PM. Reports doing okay. Reports having a lot of physical problems, especially of her right foot, back, shortness of breath and diarrhea. Patient was seen by Dr. Marquez. Consult appreciated. Appears awake and alert. Eager for discharge. Reports mood is fine. Claims she was never on an antipsychotic before hospitalization at [facility]. States she was only off medication for 1 day prior to admission here. Denies suicidal and homicidal ideation. Denies auditory and visual hallucinations. She feels that I am out to harm her. 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 We discussed Risperdal Consta and she does not want to be on a long-acting injectable medication. IMPRESSION: Slow progress. Continue present treatment plan. Awaiting the patient's placement at a state facility or at an alternate supervised setting if approved by conservator. RLE U/S negative for DVT.
[2017-12-08 19:58] VITALS: BP 150/79
[2017-12-09 08:07] VITALS: BP 131/57
[2017-12-09 12:09] VITALS: BP 115/51
--- NOTE | 2017-12-09 15:21 | SOCIAL WORKER PROG NOTE PSYCH ---
Social Work Progress Note Progress Note Called [facility] to try and see if they could assist with connecting me to places for Falguni, specifically residential care homes/ board and care facilities. I was informed by the petroleum products sales representative that they don't have any residential facilities they are connected to that take Medicaid and that the cheapest was around 3300.00. Called Emmy Nance again at [facility] and left a message regarding the referral. Asked that she let us know whether or not it's appropriate and if not does she know of other places similar. Emmy called and left a message stating that there are no beds currently open. Met with Falguni who was on the unit playing scrabble. She asked if her stuff from [facility] was brought here to the program. I let her know that it was here and that nursing locked it up. She continues to perseverate on how the [facility] program threw away all of her clothes and she is tired of wearing the same 2 shirts since she has been here. She asked if she can have any clothes? I told her that we could let her conservator know that she is in need of some things. She asked if she could have her rings that are locked up. I told her I would ask about that. Called [facility] and left a message with admissions.
[2017-12-09 15:54] VITALS: BP 126/78
--- NOTE | 2017-12-09 16:22 | CP SOUTH PROGRESS NOTE PSYCH ---
Psych (Inpt) Progress Note Progress Note Include the following elements, when applicable: Involvement in the active treatment of the patient with behavioral observations of the patient and the patient's response to the treatment. Review of the ongoing treatment process in the context of the treatment plan. Indication of how multi-disciplinary staff members are carrying out the treatment plan. Plans for future interventions and recommendations for revision of the treatment plan. Liaison with other physicians/providers. Progress Note: Case and treatment plan discussed in team meeting. Staff reports that the patient is hoping to hear some word about her leaving. Patient seen at 10:39 AM. She was asleep in bed but got up to meet with me in office. Her gait appears stiff. Reports she is in pain. Patient reports that she applied for housing at [place] [address] [address] in June 2017. Patient appears uncomfortable. States she never thought she was the Roman of [employer]. She seems a little more grounded. Mood: "not feeling well, in a lot of pain." Rates pain 8.5/10. Rates sad mood 5/10 because she is here. Rates anxiety 0/ 10. Denies feeling hopeless, helpless, worthless or guilty. Denies suicidal or homicidal ideation. Denies auditory and visual hallucinations and paranoid ideation. Reports sleep was interrupted due to pain. Appetite is fine and states she is trying to eat less. States she wants to lose weight. Energy is none. Reports she has some difficulty breathing. States that Dr. Marquez prescribed Robitussin. IMPRESSION: Slow progress. Continue present treatment plan. We are awaiting word on placement at a state facility or at another supervised setting. I will be contacting [facility] about recommendation for Dionicio martínez.
[2017-12-09 19:47] VITALS: BP 133/78
[2017-12-10 07:46] VITALS: BP 152/72
[2017-12-10 11:50] VITALS: BP 100/63
--- NOTE | 2017-12-10 15:02 | CP SOUTH PROGRESS NOTE PSYCH ---
Psych (Inpt) Progress Note Progress Note Include the following elements, when applicable: Involvement in the active treatment of the patient with behavioral observations of the patient and the patient's response to the treatment. Review of the ongoing treatment process in the context of the treatment plan. Indication of how multi-disciplinary staff members are carrying out the treatment plan. Plans for future interventions and recommendations for revision of the treatment plan. Liaison with other physicians/providers. Progress Note: Case and treatment plan discussed in team meeting. Staff reports that the patient is doing well. Social and appropriate. Patient seen at 10:24 AM. She has a slow gait. She states this is related to back and foot pain. She does not believe that she actually filed applications to [employer] and [employer]. She stated "you really think I believed that I was the Roman of [place]? I was just really angry, really livid." Overall patient has no insight. Does not want a long-acting injectable medication because she is terrified of needles. States she needs to get out of here. Frustrated because her regular psych social worker is out today and tomorrow. Reports that [facility] threw out her clothing and footwear. Describes mood as "I feel worn out." Affect is calm. Appears a bit physically uncomfortable. Denies suicidal and homicidal ideation. Denies auditory and visual hallucinations and paranoid ideation. Reports she slept well because she was knocked out from medications. Reports appetite is too good and she is gaining weight. Describes energy as none. IMPRESSION: Slow progress. Continue present treatment plan. We are looking into placement at a state facility and will also look into a less restrictive supervised setting. We will ask conservator of person to consider Dionicio Hart.
--- NOTE | 2017-12-10 15:09 | SOCIAL WORKER PROG NOTE PSYCH ---
Social Work Progress Note Progress Note Agribusiness Professor spoke with Falguni this afternoon. She reported to be feeling not well physically. She stated that she is having difficulty breathing, that he back hurts and that she has swelling in her feet. She stated, "I am going crazy in here". She also expressed to this resume writer that when she stated that she was the Roman of [place] to Dr. Pelayo, that she did not actually believe that she was the Roman, but rather she said this out of anger. She stated that she was angry about being sent to [facility]. Falguni also spoke with resume writer about wanting to have an apartment. She stated that she had toured [facility] [address] [facility] [address] in [place] in June but had not submitted an application due to "not having the name of a landlord" to put down on the application. She also stated that she needed help in obtaining a copy of her certificate. She stated that she had applied for a new certificate on June 16 and was told by the [facility] that it would be at the given address by the end of September. The given address is that of her friend, Jesi Padilla ([phone]). Jesi reported to Falguni that the certificate had not arrived yet. Agribusiness Professor printed out the application for assisted living in [facility] in [place]. The application is 30+ pages. Falguni also asked this resume writer if it would be possible for Falguni to obtain some clothing. She stated that she likes rajan and blacks, and does not like pastels, colors or floral patterns. She stated the she is in need of a sports bra (size 2x), underwear (size 1x and that she prefers "hipster" cut) and basic tops and bottoms. Agribusiness Professor called employee benefits attorneyirma Gaines (Falguni's conservator ). Agribusiness Professor called with the intention of asking employee benefits attorney Monelli if he would be able to use Falguni's money to buy some clothing for Falguni. Attorney Gaines's hotel administrative assistant took a message and stated that Attorney Gaines would call this resume writer back.
--- NOTE | 2017-12-10 15:12 | SOCIAL WORKER PROG NOTE PSYCH ---
Social Work Progress Note Progress Note Left a message with [employer] awaiting a call abck for review.
--- NOTE | 2017-12-10 16:00 | SOCIAL WORKER PROG NOTE PSYCH ---
Social Work Progress Note Progress Note Review on 12/14/17 thru [employer] [facility] #[id number] [phone] Willa
[2017-12-10 16:05] VITALS: BP 108/57
[2017-12-10 19:48] VITALS: BP 138/80
[2017-12-11 07:46] VITALS: BP 112/75
[2017-12-11 08:03] VITALS: BP 109/63
[2017-12-11 12:19] VITALS: BP 126/62
--- NOTE | 2017-12-11 14:08 | SOCIAL WORKER PROG NOTE PSYCH ---
Social Work Progress Note Progress Note Pt given an update about placement and brought to her attnetion she has made some progress, pt agrees and "wants out" she remains on the list for [facility] at this time, as we try to work with her conservator on clothing and other possibilities if she continues to make strides and improvements to mental health. 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
--- NOTE | 2017-12-11 14:27 | CP SOUTH PROGRESS NOTE PSYCH ---
Psych (Inpt) Progress Note Progress Note Include the following elements, when applicable: Involvement in the active treatment of the patient with behavioral observations of the patient and the patient's response to the treatment. Review of the ongoing treatment process in the context of the treatment plan. Indication of how multi-disciplinary staff members are carrying out the treatment plan. Plans for future interventions and recommendations for revision of the treatment plan. Liaison with other physicians/providers. Progress Note: Case and treatment plan discussed in team meeting. Staff reports that the patient would like to be able to go to her dentist as there are molds waiting. Talking about cataracts. Patient seen at 11:53 AM. She was in group prior to meeting with me. Feels alright. Wants [place]. Reports mood is fine. Rates sad mood and anxiety both 0/10. Denies suicidal and homicidal ideation. Denies auditory and visual hallucinations and paranoid ideation. Reports sleep is always fine. Rates pain 5-6/10. Somatic about her bowels. Tolerating medications well, without complaint. IMPRESSION: Slow progress. Continue present treatment plan. Patient apparently is #9 on waiting list for [facility]. We are also working on finding a less restrictive supervised setting if available.
[2017-12-11 15:34] VITALS: BP 102/71
[2017-12-11 19:38] VITALS: BP 136/68
[2017-12-12 08:04] VITALS: BP 132/69
[2017-12-12 08:07] VITALS: BP 132/69
--- NOTE | 2017-12-12 11:38 | CP SOUTH PROGRESS NOTE PSYCH ---
Psych (Inpt) Progress Note Progress Note Include the following elements, when applicable: Involvement in the active treatment of the patient with behavioral observations of the patient and the patient's response to the treatment. Review of the ongoing treatment process in the context of the treatment plan. Indication of how multi-disciplinary staff members are carrying out the treatment plan. Plans for future interventions and recommendations for revision of the treatment plan. Liaison with other physicians/providers. Progress Note: Pt notes she is in continued pain. Wanted increase to opiate. Encourage to utilize tylenol and NSAID. Had question about meds but could not recall. Denies SI or HI. Current Medications Sig/Hanna Start time Last Medication Dose Route Stop Time Status Admin Acetaminophen 650 MG Q4P PRN 10/14 0215 AC 12/02 PO 1320 Atorvastatin Calcium 20 MG 1700 10/20 1700 AC 12/11 PO 1651 Benztropine Mesylate 1 MG BID PRN 11/20 1300 AC 11/20 IM 1431 Clonazepam 1.5 MG 12/01 204 AC 12/11 PO 12/15 2042 2017 Diphenhydramine HCl 50 MG TID PRN 11/30 1999 AC 12/11 PO 2013 Divalproex Sodium 500 MG 0800,1400,11/12 0800 AC 12/12 PO 0808 Fluocinonide 1 MARGIE BID 12/02 2200 AC 12/11 TOP 2019 Gabapentin 300 MG 0800,1400,11/12 0800 AC 12/12 PO 0808 Guaifenesin 10 ML Q4P PRN 12/08 1515 AC 12/10 PO 1159 Haloperidol 5 MG BID PRN 11/20 1414 AC 11/20 IM 1431 Hydrochlorothiazide 12.5 MG DAILY 12/09 1000 AC 12/12 PO 0808 Levothyroxine Sodium 0.05 MG DAILY AC 10/16 07 AC 12/12 PO 0646 Lidocaine 1 PAT DAILY 12/03 1100 DC 12/08 EXT 0936 Melatonin 3 MG AT BEDTIME 11/07 2200 AC 12/11 PO 2016 Methyl Salicylate 1 MARGIE Q6P PRN 12/12 1145 UNVr TOP Metoprolol Tartrate 50 MG 0800,11/12 0800 AC 12/12 PO 0808 Morphine Sulfate 15 MG 0800,1400,12/11 AC 12/12 PO 0809 Morphine Sulfate 15 MG 0800,1400,12/04 1400 DC 12/11 PO 1316 Naproxen 500 MG Q12P PRN 11/25 1230 AC 12/02 PO 1316 Nicotine 2 MG Q2P PRN 12/11 1100 AC 12/11 PO 1114 Risperidone 3 MG 12/04 AC 12/11 PO 2016 Risperidone 1 MG 0800 11/25 0800 AC 12/12 PO 0808 Vital Signs Date Time Temp Pulse Resp B/P B/P Pulse O2 O2 Flow FiO2 Mean Ox Delivery Rate 12/13 807 66 132/69 12/12 08 66 132/69 12/12 0804 97.4 66 132/69 12/12 2015 98.9 98 20 136/68 12/11 1938 98.9 98 136/68 12/11 1534 76 102/71 12/11 1219 72 126/62 MSE General appearance: good hygiene and grooming; Attitude: cooperative; Eye contact: appropriate; Movement: no psychomotor agitation or slowing; Speech: nl fluency, nl rate/rhythm, nl volume, nl prosody; Mood: "in pain" Affect:very irritable, flat, appropriate, constricted, non-labile, congruent; Thought process: linear and goal-directed; Thought content: denied SI or HI, ++ paranoid ideation; Perception: denied hallucinations- auditory, visual, does not appear to be responding to internal stimuli; I/J: limited A/P: Pt with unspec SZP with continues delusions though improved. - Added methyl salc balm for pain -Continue current medication regimen -Encourage integration into the milieu
[2017-12-12 11:57] VITALS: BP 125/74
[2017-12-12 15:48] VITALS: BP 143/74
[2017-12-12 20:00] VITALS: BP 144/74
[2017-12-13 08:04] VITALS: BP 119/60
[2017-12-13 12:12] VITALS: BP 118/69
--- NOTE | 2017-12-13 13:13 | CP SOUTH PROGRESS NOTE PSYCH ---
Psych (Inpt) Progress Note Progress Note Include the following elements, when applicable: Involvement in the active treatment of the patient with behavioral observations of the patient and the patient's response to the treatment. Review of the ongoing treatment process in the context of the treatment plan. Indication of how multi-disciplinary staff members are carrying out the treatment plan. Plans for future interventions and recommendations for revision of the treatment plan. Liaison with other physicians/providers. Progress Note: Pt notes that nothing has changed. Wants to leave. Wants more morphine. Denies SI or HI. Current Medications Sig/Hanna Start time Last Medication Dose Route Stop Time Status Admin Acetaminophen 650 MG Q4P PRN 10/14 0215 12/02 PO 1320 Atorvastatin Calcium 20 MG 1700 10/20 1700 12/12 PO 1649 Benztropine Mesylate 1 MG BID PRN 11/20 1300 AC 11/20 IM 1431 Clonazepam 1.5 MG 12/01 204 AC 12/12 PO 12/15 Diphenhydramine HCl 50 MG TID PRN 11/30 1999 12/12 PO 2008 Divalproex Sodium 500 MG 0800,1400,11/12 12/13 PO 0857 Fluocinonide 1 MARGIE BID 12/02 2200 12/11 TOP 2019 Gabapentin 300 MG 0800,1400,11/12 08 12/13 PO 0857 Guaifenesin 10 ML Q4P PRN 12/08 1515 12/10 PO 1159 Haloperidol 5 MG BID PRN 11/20 1414 AC 11/20 IM 1431 Hydrochlorothiazide 12.5 MG DAILY 12/09 1000 12/13 PO 0857 Levothyroxine Sodium 0.05 MG DAILY 10/16 07 12/13 PO 0723 Melatonin 3 MG AT BEDTIME 11/07 2200 12/12 PO 2006 Methyl Salicylate 1 MARGIE Q6P PRN 12/12 1145 AC TOP Metoprolol Tartrate 50 MG 0800,11/12 12/13 PO 0857 Morphine Sulfate 15 MG 0800,1400,12/11 12/13 PO 0859 Naproxen 500 MG Q12P PRN 11/25 1230 12/02 PO 1316 Nicotine 2 MG Q2P PRN 12/11 1100 12/11 PO 1114 Risperidone 3 MG 12/04 AC 12/12 PO 2006 Risperidone 1 MG 11/25 AC 12/13 PO 0857 Vital Signs Date Time Temp Pulse Resp B/P B/P Pulse O2 O2 Flow FiO2 Mean Ox Delivery Rate 12/13 1212 63 118/69 12/13 0857 97.1 69 20 119/60 12/13 0804 97.1 69 119/60 12/12 2005 97.4 79 144/74 12/13 1999 97.4 79 144/74 12/12 1548 73 143/74 MSE General appearance: good hygiene and grooming; Attitude: cooperative; Eye contact: appropriate; Movement: no psychomotor agitation or slowing; Speech: nl fluency, nl rate/rhythm, nl volume, nl prosody; Mood: "nothing new" Affect:very irritable, flat, appropriate, constricted, non-labile, congruent; Thought process: linear and goal-directed; Thought content: denied SI or HI, ++ paranoid ideation; Perception: denied hallucinations- auditory, visual, does not appear to be responding to internal stimuli; I/J: limited A/P: Pt with unspec SZP with continues delusions though improved. -? worsening edema, asked medicine to reeval -Continue current medication regimen -Encourage integration into the milieu
[2017-12-13 15:44] VITALS: BP 126/63
[2017-12-13 19:41] VITALS: BP 130/51
[2017-12-14 07:36] VITALS: BP 105/54
[2017-12-14 12:02] VITALS: BP 130/71
[2017-12-14 12:20] VITALS: BP 130/71
--- NOTE | 2017-12-14 13:31 | CP SOUTH PROGRESS NOTE PSYCH ---
Psych (Inpt) Progress Note Progress Note Include the following elements, when applicable: Involvement in the active treatment of the patient with behavioral observations of the patient and the patient's response to the treatment. Review of the ongoing treatment process in the context of the treatment plan. Indication of how multi-disciplinary staff members are carrying out the treatment plan. Plans for future interventions and recommendations for revision of the treatment plan. Liaison with other physicians/providers. Progress Note: Dr. Mcpherson's notes reviewed. Case and treatment plan discussed in team meeting. Staff reports that the patient continues to complain of foot problem but she hasn't been elevating it nor has she been compliant with TEDS hose. Wants more morphine. ACTUARIAL CONSULTANT will be coming here to meet with the patient tomorrow. Patient seen at 11:57 a.m. She was asleep in her room but got up to meet with me in office. States she doesn't feel well. Appears sedated. Reports leg and back discomfort. Complains of hoarseness. Reports that she slept alright last night. Appears mildly uncomfortable. "I would just like to get out of here." Reports ACTUARIAL CONSULTANT will be visiting tomorrow at 1:30 pm. Eager to see her dentist, stating that new dentures are ready. Reports she needs cataract removal O.D. Affect is calm and blunted. IMPRESSION: Slow progress. Continue present treatment plan. The patient is on the waiting list for [facility]. We will continue to look into less restrictive alternatives.
[2017-12-14 15:56] VITALS: BP 127/50
--- NOTE | 2017-12-14 16:46 | SOCIAL WORKER PROG NOTE PSYCH ---
Social Work Progress Note Progress Note Spoke with Double Spindle Shaper Operatorirma Gaines he is planning to be here to meet with Falguni around 1pm tomorrow. He reports that he has not been able to reach the daughter by phone and that the phone just rings. He decided to send a letter to the address she gave. I let him know her chromebook and papers were here from the CTS program. Reported that Dr. Pelayo would like to discuss Falguni's medications with him tomorrow. Met with Falguni who was in bed most of the day. She said she wasn't feeling well physically. She had complaints of her lungs and foot bothering her. Reminded her of the meeting with the conservator tomorrow. She continues to talk about wanting a plan to leave. Stated she is scared of [facility]. I told her that if we could find an alternate plan to support her needs we will look at that. She told me that her daughter can't be reached because she only responds to texts. Reports her daughter is a star and to a instrumental musician. Reports she is at [email or web address] and all over the place. Told her that I am trying to look into alternate housing, but I need some guidance on places that may be appropriate in the area and that I was looking to possibly get info from our case management dept. Called Willa at [facility] to report updated clinical. Willa authorized 2 days with review on 12/16.
[2017-12-14 19:44] VITALS: BP 117/59
[2017-12-15 07:50] VITALS: BP 136/54
[2017-12-15 12:02] VITALS: BP 125/48
--- NOTE | 2017-12-15 14:01 | CP SOUTH PROGRESS NOTE PSYCH ---
Psych (Inpt) Progress Note Progress Note Include the following elements, when applicable: Involvement in the active treatment of the patient with behavioral observations of the patient and the patient's response to the treatment. Review of the ongoing treatment process in the context of the treatment plan. Indication of how multi-disciplinary staff members are carrying out the treatment plan. Plans for future interventions and recommendations for revision of the treatment plan. Liaison with other physicians/providers. Progress Note: Case and treatment plan discussed in team meeting. Staff reports that the patient had not showered. Refused stockings but then put them on this morning. Meeting was scheduled with eliane for 1 PM today. Patient seen at 10:24 AM. She apparently just showered. She was heading to group prior to meeting with me in office. Reports she has a list of questions for her conservator. Does not want to go to a [facility], stating that it frightens her. She thinks that [facility] have criminals in them. She is interested in going to [place] [id number], [facility] or [place] in [place]. Affect is brighter. She appears more comfortable today. States she is feeling a little better but gets tired in the morning. States pain is the same and her foot is "blown up." Reports she is wearing the compression stockings and is trying to elevate foot. She feels sad because she is still here and rates sad mood 4/10. Reports she is anxious because she is still here and rates anxiety 5 /10. Denies feeling hopeless, helpless, worthless or guilty. Denies suicidal and homicidal ideation. Denies auditory and visual hallucinations and paranoid ideation. Reports sleep is fine. Reports appetite is good, too good. Reports energy is less. Tolerating medications but reports ongoing pain. I joined meeting at 1:15 pm with patient, eliane (Computer Programmerirma Gaines), Claudia Byrd LCSW and JAN Ramirez. I reviewed patient's psychiatric status and medications, medical conditions and our request for authorization for Risperdal Consta. IMPRESSION: Slow progress. Continue present treatment plan. Await conservator's decision about Risperdal Consta. We continue to look for a less restrictive alternative to [facility], which the patient has been probate-committe to and for which she is on the waiting list.
[2017-12-15 15:42] VITALS: BP 140/91
--- NOTE | 2017-12-15 16:33 | SOCIAL WORKER PROG NOTE PSYCH ---
Social Work Progress Note Progress Note Started calling some residential care homes. Left a couple of messages with folks to find out general information. Meeting held with Falguni and her Molder Labels Liana (conservator). Dr. Pelayo gave an brief overview of how Falguni is doing psychiatrically and talked about adding an injectable Risperdal IM. Molder Labelsirma Gaines reviewed the information and signed off on this process to start. He was also updated on what is going on with her medically. Falguni and Molder Labelsanusha Gaines started to go through her paperwork that was brought from the CTS program last week. Falgnui wants his help in applying for Castile's benefits from her 's passing. She asked him to help her obtain his certificate. I let them know I was starting to make calls around to facilities that may be residential options. Falguni said she was open to going anywhere other than [place] of [place]. Molder Labelsanusha Gaines wrote Falguni's friend Gabbie a check for 300.00 to help buy Falguni some new clothes. Irene reports she will see her friend this weekend and give her the check. The check was locked in the safe until the friend arrives.
[2017-12-15 19:54] VITALS: BP 120/78
[2017-12-16 07:37] VITALS: BP 115/53
[2017-12-16 09:32] VITALS: BP 101/65
--- NOTE | 2017-12-16 11:59 | CP SOUTH PROGRESS NOTE PSYCH ---
Psych (Inpt) Progress Note Progress Note Include the following elements, when applicable: Involvement in the active treatment of the patient with behavioral observations of the patient and the patient's response to the treatment. Review of the ongoing treatment process in the context of the treatment plan. Indication of how multi-disciplinary staff members are carrying out the treatment plan. Plans for future interventions and recommendations for revision of the treatment plan. Liaison with other physicians/providers. Progress Note: Case and treatment plan discussed in team meeting. Staff reports that the patient has been wearing a lot of makeup. Watched movies. Calm and cooperative. Had a good meeting with [employer] of person and estate. Conservator authorized Risperdal Consta. Blood pressures were low this morning so medications were held. Patient seen at 10:32 AM with Claudia Byrd LCSW. Patient seen in conference room. She was resting in bed prior to meeting with us. Reports she was up since 3:30 AM. She understands we will be giving her Risperdal Consta and she is not objecting. Affect is calm and euthymic. Feels okay except feels tired in the morning. Appears awake and alert. Does not feel ready to cut down opiates because of pain in her back and right foot. Feels pretty good about her meeting yesterday with [employer]. Patient seems more reality-based. Reports mood is good but she feels sad because she is here. Does not want to go to a state hospital. Denies suicidal and homicidal ideation. Denies auditory and visual hallucinations and paranoid ideation. IMPRESSION: Slow progress. Continue present treatment plan. Appears to be improving over time. Monitor response to initiation of Risperdal Consta 25 mg IM every 2 weeks. We continue to look into less restrictive alternatives to [facility].
--- NOTE | 2017-12-16 12:03 | SOCIAL WORKER PROG NOTE PSYCH ---
Social Work Progress Note Progress Note Dr. Pelayo and I met with Falguni this morning. She was in her room resting. Reports she woke up around 3:30am. Feels tired. Dr. Pelayo asked if she would like to reduce the opiates? She refused stating she needs them at least until the swelling in her foot goes down. Has complaints of her back and foot hurting. She felt that the meeting went well with the conservator yesterday. She seemed pleased and was smiling. Reports her mood is good, but feels sad about still being here. Denies other symptoms. Told her I was working on housing options. Received a call from Arlene Bermudez who reported being Falguni's "sister lauren." She really isn't family, but said Falguni calls her that. They have known eachother for over 30 years. She considers Falguni family. Arlene used to be involved with Falguni's 's younger Brother. She said Falguni was to Ernie Lopez and he was a very wealthy man. She said he was a graduate of [employer] and worked in electronics. She said he was a nice man, but had a gambling problem. She reported that Falguni and him had a beautiful home in [place] and that Falguni's daughter Ashley had nannies to help raise her. She said Falguni has always been "quirky" and a "little out there." She didn't know Falguni really had a significant mental illness and was surprised about the events that led her to where she is now. She said she knows Falguni has had issues around pain and has been in pain management for years. She wonders if Falguni not getting her medications after moving from [place] to [place] caused her to decompensate. She said Falguni lived in [place] and sold everything and moved to [place]. She then moved back to [place] in May and she didn't hear from Falguni until August when she was apparently running out of money. She had been staying at a hotel at that time. She couldn't believe that Falguni had left [place] and just came back to [place] without a plan. She doesn't know where Falguni's grandson lives. She said her daughter Ashley is in [place] and basically wants nothing to do with her. She has had contact with Ashley by text and told her where Falguni is. I gave her info on how Falguni is now conserved of person and estate and shared her conservator's information with her. I asked her to pass it on to Ashley as well. Arlene would like to help Falguni, but she can't have her live with her. She would like to visit Falguni in the next couple of weeks. She will be leaving in 5 weeks for vacation. I told her we are looking at assisted living placements for her at this time. She said Falguni has a great heart and she just worries about people taking advantage of her. She couldn't vouge for her friend Gabbie. She said she doesn't know her. Her phone number for further contact is [phone]. She lives in [facility]. Received a call back from [facility] after leaving clinical for authorization. A peer review is being requested. Peer review will take place on Thursday at 10: 30am. Dr. Connor will reach out to Dr. Pelayo.
[2017-12-16 12:21] VITALS: BP 132/57
--- NOTE | 2017-12-16 13:32 | SOCIAL WORKER PROG NOTE PSYCH ---
Social Work Progress Note Progress Note Senior Core Java Developer began calling Residential Care Facilities that are located north of [place] (per patient's request). Senior Core Java Developer called the following Adult Residential Care Homes: 1. [facility] in [place]. The following information was obtained: -One bed open in a double room located on the second floor which is only accessible by stairs -3 meals and snacks included -Recreational actvities in the evening 4 times weekly -Social security/disability use to pay for care; residents are given $277/month for personal spending money 2. [facility]. The following information was obtained: -16-bed facility of which approximately half of are psych patients -Staffed with RN, LPNs, Medical certified CNAs -Psych RN RELIEF CHARGE visits twice weekly -Private rooms -Social security is used to cover the cost of care. The difference is paid for by Medicaid -Approximate cost is $2,673 per month -One bed is open Senior Core Java Developer spoke with Yannick Parish RN who runs the facility. He faxed over a brochure. Senior Core Java Developer is in the process of finding out whether FalguniMonikhenrry Youngblood would pay for a portion of the care here. 3. [facility] in [place] -Senior Core Java Developer will call back tomorrow as the farm equipment maintenance supervisor who is able to give information was not in today. 4. [facility] in [place] Senior Core Java Developer called main number and was directed to call accounts payable payroll coordinator, Mary Jane ([phone]). Voicemail was left for Mary Jane. Senior Core Java Developer spoke with Mary Jane later in the day. There are currently no vacancies at [facility] which is a 25 bed facility. The rate is about $3,600 per month.
[2017-12-16 16:20] VITALS: BP 140/67
[2017-12-16 20:03] VITALS: BP 161/64
[2017-12-17 08:11] VITALS: BP 137/65
--- NOTE | 2017-12-17 12:01 | SOCIAL WORKER PROG NOTE PSYCH ---
Social Work Progress Note Progress Note Falguni's hair was cut and styled. She was pleased. She shared that Dr. Pelayo doesn't think she is "Schizophrenic" anymore. I asked her how she felt about that? She said she was happy. I mentioned that there seems to be more of a Bipolar component. I asked if she has had that dx before? She said "there are always labels." I told her we are looking and treating her symptoms. Talked about [facility] in [place] having an opening. She wasn't sure where [place] was. I explained the location and little bit about how [place]. She was not pleased with that type of location and said she would rather be next to a store or two. She would prefer to look at other options. I encouraged her not to discount this, as they have a bed open right now. I did send her conservator some information about [facility] and left him a message.
[2017-12-17 12:26] VITALS: BP 100/72
--- NOTE | 2017-12-17 13:53 | CP SOUTH PROGRESS NOTE PSYCH ---
Psych (Inpt) Progress Note Progress Note Include the following elements, when applicable: Involvement in the active treatment of the patient with behavioral observations of the patient and the patient's response to the treatment. Review of the ongoing treatment process in the context of the treatment plan. Indication of how multi-disciplinary staff members are carrying out the treatment plan. Plans for future interventions and recommendations for revision of the treatment plan. Liaison with other physicians/providers. Progress Note: Case and treatment plan were discussed in team meeting. Patient had her hair done at the [facility]. Feels well. Received Risperdal Consta yesterday. There will be a doctor to doctor peer review tomorrow at 10:[address] Briggs. Patient seen at 10:06 AM. She was resting in bed but got up and met with me in office. Reports ongoing back pain. Affect is calm and euthymic. Wants her friend, Arlene, to be her conservator. Reports mood is fine. Denies suicidal and homicidal ideation. Denies auditory and visual hallucinations and paranoid ideation. She admits she is no longer as angry with me as she had been. She now has some perspective on her prior grandiosity. We discussed the fact that she does not appear to have schizophrenia. I informed her that I believe she has bipolar disorder and she responded that she does not believe in bipolar disorder. IMPRESSION: Slow progress. Continue present treatment plan. Patient has been probate- committed to a state facility but we are looking into a less restrictive alternative placement. Continue current medications as ordered. Patient will have a Depakote level on 12/24/17.
[2017-12-17 16:01] VITALS: BP 90/64
[2017-12-17 19:59] VITALS: BP 146/77
[2017-12-18 07:55] VITALS: BP 127/77
--- NOTE | 2017-12-18 10:37 | CP SOUTH PROGRESS NOTE PSYCH ---
Psych (Inpt) Progress Note Progress Note Include the following elements, when applicable: Involvement in the active treatment of the patient with behavioral observations of the patient and the patient's response to the treatment. Review of the ongoing treatment process in the context of the treatment plan. Indication of how multi-disciplinary staff members are carrying out the treatment plan. Plans for future interventions and recommendations for revision of the treatment plan. Liaison with other physicians/providers. Progress Note: Case and treatment plan discussed in team meeting. Staff reports that the patient is denying SI. Complains of pain in lower back. Patient seen at 10:24 a.m. She was resting in bed prior to meeting with me in office. "Well, I'm alright." Reports having a headache for the past couple of days and she wonders if it relates to Risperdal Consta. I recommended she try some prn Tylenol. States her back hurts and she gets up at 7 am and then tries to rest in bed from 10-11 a.m. Doesn't want placement in [place] because it is [facility]. Would prefer to be placed in [place]. Mood is fine. Affect is calm and euthymic. Thinking is clearer and much more rational than upon admission. Denies SI, HI, AH, VH and PI. Reports she slept okay. Appetite: fine. Energy: reports gaining weight and her energy is low. IMPRESSION: Improving. Continue present treatment plan. We are actively working on placement. Case reviewed with Dr. Briggs. He authorized through 12/21/17.
--- NOTE | 2017-12-18 11:10 | SOCIAL WORKER PROG NOTE PSYCH ---
Social Work Progress Note Progress Note Made several calls to various residential homes today. Left messages. There were several that had stairs or no openings at this time. [facility] in [place] seemed to be a possibility. They do have an opening. Asked for an application and a brochure to be faxed over. Falguni was resting in her room late morning. Her back is bothering her today. Reviewed the 10 page list of Residential Homes that I had and starred ones that Falguni had an interest in. Falguni and I filled out the application for [facility]. I faxed the application and brochure to Computer Service Techniciananusha Gaines. Waiting for a signed release and application, so we can proceed with faxing it back to them. Willa from [facility] called to say after Dr. Pelayo completed the peer review they authorized 5 days. Next review is due 12/22. They are looking for her to be discharged soon.
[2017-12-18 12:37] VITALS: BP 140/83
[2017-12-18 15:50] VITALS: BP 126/62
[2017-12-18 20:07] VITALS: BP 139/58
[2017-12-19 08:04] VITALS: BP 136/55
[2017-12-19 11:59] VITALS: BP 122/75
--- NOTE | 2017-12-19 15:25 | CP SOUTH PROGRESS NOTE PSYCH ---
Psych (Inpt) Progress Note Progress Note Include the following elements, when applicable: Involvement in the active treatment of the patient with behavioral observations of the patient and the patient's response to the treatment. Review of the ongoing treatment process in the context of the treatment plan. Indication of how multi-disciplinary staff members are carrying out the treatment plan. Plans for future interventions and recommendations for revision of the treatment plan. Liaison with other physicians/providers. Progress Note: Doing well except multiple complaints of pain and leg swelling. Wants to get off of the water pill stating she urinates too much but her legs remain swollen. Explained to her that HCTZ is probably the mildest water pill and that she is on the lowest dose. Explained that gabapentin can help with pain but acknowledged that it could make swelling worse she wanted to get off of both meds, I explained that I did not think she would get a shot if she refused them but for now it was best she take them. also educated her about weight gain being related to inactivity and risperdal as well which was one of her other concerns. She was agreeable and stated she would address with team if remains a concern. MSE: pleasant overweight woman, older, fair grooming. She is coherent and linear and less agitated than she has been in previous interactions in the past. She is not paranoid or grandiose during out brief discussion. Her mood is neutral to good despite her complaints of pain and her affect is full and reactive. Thinking is linear. Insight is fair and judgment is fair. A: 67 year old woman with history of psychotic sx, multiple medical chronic issues, conserved and on list for longer term admission. Rec: continue current plan of care. Has accepted risperdal consta and has been doing better overall.
[2017-12-19 20:03] VITALS: BP 153/80
[2017-12-20 07:51] VITALS: BP 143/81
[2017-12-20 12:08] VITALS: BP 142/59
--- NOTE | 2017-12-20 14:21 | CP SOUTH PROGRESS NOTE PSYCH ---
Psych (Inpt) Progress Note Progress Note Include the following elements, when applicable: Involvement in the active treatment of the patient with behavioral observations of the patient and the patient's response to the treatment. Review of the ongoing treatment process in the context of the treatment plan. Indication of how multi-disciplinary staff members are carrying out the treatment plan. Plans for future interventions and recommendations for revision of the treatment plan. Liaison with other physicians/providers. Progress Note: Refused her neurontin and HCTZ because she stated that I told her we couldn't give her a shot if she refused those. I explained to her that if medically indicated, lasix is available in IM form and can be discussed with her conservator. She was irritable and brushed me off. She stated she will check herself if her swelling is going down and consider going back on the med tmr or following day if it does not go down or gets worse. MSE: overweight woman, older, well groomed with makeup on today. She is more irritable than yesterday and ended eval early. She has regular speech. No psychomotor changes. Mood is annoyed and affect is constricted. No gross paranoia but suspicious. She is not hallucinating. No evidence of thoughts to harm self or anyone else. Insight and judgment are both poor at this time. A: 67 year old woman with history of psychotic sx, multiple medical chronic issues, conserved and on list for longer term admission. Rec: continue current plan of care. Has accepted risperdal consta and has been doing better overall. Educated her about having conservator consent to medical meds and consideration of available medical meds in IM form if she declines. She was not very receptive of this information. Continue attempt to educate her about all med adherence.
[2017-12-20 15:33] VITALS: BP 126/70
[2017-12-20 19:01] VITALS: BP 134/72
[2017-12-21 07:36] VITALS: BP 147/81
[2017-12-21 12:12] VITALS: BP 175/74
--- NOTE | 2017-12-21 14:32 | SOCIAL WORKER PROG NOTE PSYCH ---
Social Work Progress Note Progress Note Faxed [facility] Res[facility] application to . Please call Admissions at to see status and if bed available. Need to review list of Adult Residential Care Homes with Falguni and have Conservator Corn Shucker Josh Gaines sign any releases (Fax JULIA to him to sign). She did not report any SI/HI, no AH/VH. Met with Falguni late in day, she was disappointed that there was not more facilities contacted today. Explained to Falguni Ellis or another social secretary will work with her on finding more faciiites to connect with this week. She was irritable, but expressed her feelings appropriately. She is looking for a place in [facility], [place], [facility]. Josselin is reusing any referrals near the [facility]. Per Claudia Byrd SUPERVISOR AIRPLANE FLIGHT ATTENDANT list it seems additional referrals need to be made to [facility] in [place], [place] in [place] Ph#(they are likely to accept this patient).
[2017-12-21 15:43] VITALS: BP 125/53
--- NOTE | 2017-12-21 17:21 | CP SOUTH PROGRESS NOTE PSYCH ---
Psych (Inpt) Progress Note Progress Note Include the following elements, when applicable: Involvement in the active treatment of the patient with behavioral observations of the patient and the patient's response to the treatment. Review of the ongoing treatment process in the context of the treatment plan. Indication of how multi-disciplinary staff members are carrying out the treatment plan. Plans for future interventions and recommendations for revision of the treatment plan. Liaison with other physicians/providers. Progress Note: Dr. Shira Diaz's notes reviewed. Case and treatment plan discussed in team meeting. Staff reports that a friend purchased some clothes with money from [employer] and brought them in for the patient. Staff reports that the patient seems to be doing all right. Patient seen at 4:45 PM with medical student. Patient's affect is calm and euthymic. She has makeup on. Wants a dietitian consult for weight loss and I ordered this. Reports mood is fine and states she is just bored. Wants to get out of here in a very bad way. Does not want to live in [place]. Rates sad mood and anxiety both 0/10. Denies feeling hopeless, helpless, worthless or guilty. Denies suicidal and homicidal ideation. Denies auditory and visual hallucinations and paranoid ideation. Reports she is tired of urinary incontinence from diuretic and she is refusing diuretic and Neurontin based on her theory theory that Neurontin is causing her foot edema. Reports sleep is not good after 5 AM. Appetite is described as too good. Reports energy is low because she is always in chronic bad pain, including back pain. IMPRESSION: Slow progress. Continue present treatment plan. Placement remains problematic.
[2017-12-21 19:37] VITALS: BP 137/88
[2017-12-22 07:50] VITALS: BP 149/78
--- NOTE | 2017-12-22 10:21 | SOCIAL WORKER PROG NOTE PSYCH ---
Social Work Progress Note Progress Note Pt expresses sadness around still being here, we had a conversation around fear of the unknown, and how we can only accommodate so many requests about placements especially as she continues to meet less and less criteria for inpatient hospitalization, "wouldn't you like the option to go outside and walk around, she states yes and agrees that would be better than being in the hospital, I offer we can try to have her placed close to [place], but ultimately we can not guarantee that, she is upset with this, but can see where I am coming from, i.e. it may be best tog et out of the hospital and try a different location, rather than be "stuck in here". [facility] states they re not equipped for psychiatric patients Sent a referral to [facility], possible bed available by the edn of the week, into next week and this is in an area that jaziel would prefer. Ask for Candice [phone]. fax [phone] Left clincial information for review with KAYLA
[2017-12-22 12:12] VITALS: BP 137/64
--- NOTE | 2017-12-22 14:39 | CP SOUTH PROGRESS NOTE PSYCH ---
Psych (Inpt) Progress Note Progress Note Include the following elements, when applicable: Involvement in the active treatment of the patient with behavioral observations of the patient and the patient's response to the treatment. Review of the ongoing treatment process in the context of the treatment plan. Indication of how multi-disciplinary staff members are carrying out the treatment plan. Plans for future interventions and recommendations for revision of the treatment plan. Liaison with other physicians/providers. Progress Note: Case and treatment plan discussed in team meeting. Staff reports that the patient is status quo. Denying suicidal ideation. Vital signs stable. Reporting pain at 5/10. Patient seen with social organization professor, Rhonda. Patient was asleep in her room at 10 :54 AM but got up and met with us in office. Affect is calm and blunted to euthymic. Reports she feels lousy. States she is down because she cannot get out of here quickly. Wants to have a test for diabetes. States she has not been seen by dietitian yet. Rates sad mood 3/10 and anxiety 0/10. Denies feeling hopeless, helpless, worthless or guilty. Denies suicidal and homicidal ideation. Denies auditory and visual hallucinations and paranoid ideation. Reports sleep was not good, up and down. States she is tired. Appetite is fine , too good. She plans to continue to refuse hydrochlorothiazide and Neurontin. IMPRESSION: Slow progress. Continue present treatment plan. We will check a repeat hemoglobin A1c and Depakote level tomorrow morning. Placement remains problematic. Requesting an inhaler. Prn albuterol ordered.
--- NOTE | 2017-12-22 16:03 | SOCIAL WORKER PROG NOTE PSYCH ---
Social Work Progress Note Progress Note Willa from [employer] will be scheduling peer reviews for further covered days . Last covered day is 12/21/17.
[2017-12-22 16:12] VITALS: BP 164/80
[2017-12-22 20:04] VITALS: BP 137/60
[2017-12-23 07:55] VITALS: BP 161/66
--- NOTE | 2017-12-23 10:53 | CP SOUTH PROGRESS NOTE PSYCH ---
Psych (Inpt) Progress Note Progress Note Include the following elements, when applicable: Involvement in the active treatment of the patient with behavioral observations of the patient and the patient's response to the treatment. Review of the ongoing treatment process in the context of the treatment plan. Indication of how multi-disciplinary staff members are carrying out the treatment plan. Plans for future interventions and recommendations for revision of the treatment plan. Liaison with other physicians/providers. Progress Note: Case and treatment plan discussed in team meeting. Staff reports that the patient is status quo. We are looking into possible placement in [place]. Patient seen at 10:29 AM. States she does not feel well and cannot breathe. Does not appear in respiratory distress. She is upset about weight gain. Reports she met with dietitian but did not learn anything new. Bloodwork from this morning is significant for therapeutic Depakote level of 59.7 and hemoglobin A1c worse at 6.6. Patient reports her father developed diabetes in his 50s. Affect is calm and blunted. Reports mood is pretty down about weight gain and rates depressed mood 4/10. Rates anxiety 0/10. Denies feeling hopeless, helpless, worthless or guilty. Denies suicidal and homicidal ideation. Denies auditory and visual hallucinations and paranoid ideation. Reports she slept fine, she guesses. Feels bored here. Describes appetite as fine and energy as low. IMPRESSION: Slow progress. Continue present treatment plan. Patient's weight gain seems to correlates with treatment with atypical antipsychotic, Risperdal. Nonetheless, the patient's mental status has improved dramatically since she started on Risperdal. The locked psychiatric unit does not help to promote physical activity. We are looking into placement in [place], where a bed reportedly is available.
--- NOTE | 2017-12-23 11:17 | SOCIAL WORKER PROG NOTE PSYCH ---
Social Work Progress Note Progress Note Word Processing Operator spoke with Ed (director) at [facility] in [place] this morning ([phone]). Ed confirmed that the bed was still available but that Falguni's conservator needed to come see the facility before Falguni would be able to be placed there. As such, Firmware Manageranusha Gaines was contacted ([phone]). Word Processing Operator explained to Atty. Gaines that the bed was still available but that another conservator was coming to tour the facility. Atty. Gaines stated that his schedule would most likely not permit him to make it to [place] in the next 3 to 4 days. Word Processing Operator suggested that Atty. Gaines speak with Ed directly to see if an arrangement could be made. Ed's number was given to Atty. Gaines. Atty. Gaines confirmed that he would be able to call Ed today. Word Processing Operator will call back this afternoon to check on the status of that phone call. Word Processing Operator called Marcos Gaines back twice this afternoon but was only able to reach his manager administrative services and leave messages to have him call auto service writer back as soon as possible. Word Processing Operator pursued other possible rest homes for Falguni. The following places were called: 1. [facility]: Word Processing Operator called ([phone]) twice. The first time, the phone rang until it hung up. The second time, someone answered but stated that he did not work at the facility. Word Processing Operator will call back again later. 2. [facility]: ([phone])A message was left for Kayleigh at extension [phone] with a request for call back. 3. [facility]: ([phone]) A message was left "the office of the medical administrator" at extension [phone] with a request for a call back.
[2017-12-23 11:39] VITALS: BP 123/63
[2017-12-23 16:41] VITALS: BP 151/60
[2017-12-23 20:33] VITALS: BP 176/73
[2017-12-24 08:06] VITALS: BP 141/74
[2017-12-24 12:10] VITALS: BP 134/63
--- NOTE | 2017-12-24 12:53 | CP SOUTH PROGRESS NOTE PSYCH ---
Psych (Inpt) Progress Note Progress Note Include the following elements, when applicable: Involvement in the active treatment of the patient with behavioral observations of the patient and the patient's response to the treatment. Review of the ongoing treatment process in the context of the treatment plan. Indication of how multi-disciplinary staff members are carrying out the treatment plan. Plans for future interventions and recommendations for revision of the treatment plan. Liaison with other physicians/providers. Progress Note: Case and treatment plan discussed in team meeting. Staff reports that the patient is status quo. Patient has been accepted at [facility] in [place]. Case reviewed with Dr. Alex Briggs from [employer]. He is denying authorization going forward. Patient seen at 10:50 AM with medical student. Patient was asleep in her room but got up and met with us in office. Affect is calm and euthymic. Denies having bipolar disorder, stating that she does not get highs and lows. Mood is tired, bored but otherwise reports having a fine mood. States she is upset. Rates sad mood and anxiety both 0/10. Denies hopeless, helpless, worthless or guilty. Denies suicidal and homicidal ideation. Denies auditory and visual hallucinations and paranoid ideation. Sleep is fine. Reports appetite is too much and she has self-imposed a diet. Energy is none because she is bored. Tolerating medications except for report of swelling and weight gain. Does not want to go to [place] because she states she will not be happy in the [facility] and there are no stores nearby. IMPRESSION: Slow progress. Continue present treatment plan. Reportedly conservator will visit [facility] in [place]; we anticipate patient's discharge to there on Thursday.
--- NOTE | 2017-12-24 13:58 | SOCIAL WORKER PROG NOTE PSYCH ---
Social Work Progress Note Progress Note Rhonda Fortune and technical proposal writer spoke with Hydraulic Strainer Operator Josh Gaines as well as Ed, the director of [facility] in [place] throughout the morning and afternoon today to coordinate Falguni's placement at the facility. Ed stated that a bed would be open for Falguni on Thursday, December 28 so long as Hydraulic Strainer Operatorirma Gaines approved. Ed stated that Falguni would need to be there at 11AM on December 28. He requested that [facility] staff fax over a preliminary W-10 so that he could coordinate care and set up her medications. Message was relayed to Dr. Pelayo. Proof Passer spoke with Falguni this afternoon. She reported that she was "not feeling so good" as she is upset that she is still in the hospital. Proof Passer told her that she would be going to [facility] on Thursday. Falguni was accepting of going to [place] and expressed mild happiness about this, stating "anywhere is better than here. At least I will be able to have a cigarette somewhere between here and there". Falguni asked this technical proposal writer if technical proposal writer had called [facility], an assisted living facility in [place]. Proof Passer had not, but told Falguni that she would see if there was an application that Falguni could bring with her to fill out once she arrives at [facility]. Falguni agreed to this plan and thanked this technical proposal writer. The application for [facility] can be done online at: [email or web address] To Do: 1. Preliminary W-10 will need to be generated and faxed to Ed at [facility]. 2. Transportation will need to be set up for Falguni for her discharge on Thursday. Hydraulic Strainer Operatorirma Gaines will be contacted to see if he can bring her to the facility. 3. Ed stated that he will call back to let [facility] physician know which pharmacy to call Falguni's medications into.
[2017-12-24 15:49] VITALS: BP 144/75
[2017-12-24 19:58] VITALS: BP 155/62
[2017-12-25 08:03] VITALS: BP 140/99
[2017-12-25 11:52] VITALS: BP 135/65
--- NOTE | 2017-12-25 12:33 | SOCIAL WORKER PROG NOTE PSYCH ---
Social Work Progress Note Progress Note Falguni is discharging to [facility] on 12/28 at 10am. Need to make sure Adi Lewis/ understands Dang Gaines approved her to be accepted to facility. * [facility] has been arranged, - they will arrive at 10am on CPS to transport her. INformed them there is no Voluntary form or PEC for this as it is a nursing facility. * [facility] - spoke with Diamante/Fav[place] office - provided referral - gave demographics and insurance. Diamante stated they work with [facility]. FAX W10 Fx. [phone] SW NEED TO CALL BACK [facility] WITH NAME OF PSYCHIATRIST WHO WILL PRESCRIBE MEDS AT [facility]. [facility] - - SW please call Adi Lewis in AM on . Dang Gaines has to inform Debbie that PT can be accepted. Left several messaged for Adi Lewis that verbal OK was given by Dang Gaines today 12/25 for Falguni to go on Thursday. [facility] Fax W10/Health Summary [phone]. TC - Adi Lewis/ / - (Ed's Cell Ph#) - Ed stated patient can come on 12/28 as long as the Atty. Gaines gives the OK. He stated once he hears that, she can come to [place]. He stated he uses [facility] visiting nurse. Stated to indicate on W10 - homecare nursing eval, Psychiatric care - [facility] referral. He sated he would take care of referrals. Spoke with Dr. Pierce orozco this - recommended I make contact with [facility]. TC - Spoke with Attorney Gaines (conservator) with Falguni present on conference call in AM. Manager Research Developmentirma Gaines described the facility to Falguni ([facility]), and he stated he plans to visit the facililty after she arrives on . 12/29 or . 12/30. He stated that he spoke with the higher education administrator of [facility] - Adi Lewis and feels it the best placement for Falguni at this time. Falguni stated she wants to be closer to [facility], but is willing to go. Atty. Parish stated they can look into other facilities at a later date, but Falguni can no longer stay t [place]. Falguni agreed with plan, she was smiling speaking with her conservator, Atty. Johnson. Her Manager Research Development approved for her to call her bank to talk to a specific woman about her account (it is frozen). Attroxy Gaines stated Falguni will have about $200 spending money while she is a resident there, and [facility] Falguni balked at this ([facility]) stated she wants to do something else. She states she wants to smoke a cigarette - will they let her smoke. Attny. Gaines stated probably outside. Falguni's mood is stable, she is visible in the millieu. She denied SI/HI, no AH/Vh, she is slightly irritable at times.
--- NOTE | 2017-12-25 13:54 | CP SOUTH PROGRESS NOTE PSYCH ---
Psych (Inpt) Progress Note Progress Note Include the following elements, when applicable: Involvement in the active treatment of the patient with behavioral observations of the patient and the patient's response to the treatment. Review of the ongoing treatment process in the context of the treatment plan. Indication of how multi-disciplinary staff members are carrying out the treatment plan. Plans for future interventions and recommendations for revision of the treatment plan. Liaison with other physicians/providers. Progress Note: Case and treatment plan discussed in team meeting. Staff reports that the patient is not very happy about the discharge plan. Reportedly made some suicidal statements but denied suicidal ideation to nursing staff this morning. Patient seen at 11:57 AM. States she is glad to be getting out of here but she does like where she will be going. "Maybe I'll be able to get out of there soon." Reports that Dr. Caal reduced bedtime Klonopin on its renewal to 1 mg nightly and she requests return to 1.5 mg nightly dose. I made this change. Feels bored. States she does want to go to any more groups. Asking if she will be placed on medication for diabetes. Reports mood is fine. Affect is calm and euthymic. Rates sad mood and anxiety bothl 0/10. Denies feeling hopeless, helpless, worthless or guilty. Denies suicidal and homicidal ideation. Denies auditory and visual hallucinations and paranoid ideaton. Describes sleep as intermittent. Reports appetite is high but she is curbing it. Energy is described as "bored here; it's correction to me." IMPRESSION: Slow progress. Continue present treatment plan. Anticipate placement at [facility] on Thursday. We will try to arrange [facility] visiting nurse service. We will try to arrange psychiatric follow-up with [facility]. We will request [facility] transport for 10 a.m. Thursday.
[2017-12-25 15:56] VITALS: BP 118/75
[2017-12-25] MEDS ORDERED: NICORELIEF2 MG PO (16:55)
[2017-12-25] MEDS ORDERED: VENTOLIN HFA18 GM INH (16:55)
[2017-12-25] MEDS ORDERED: KLONOPIN0.5 M1 PO (16:55)
[2017-12-25] MEDS ORDERED: DIPHENHYDRAMINE50 M1 PO (16:55)
[2017-12-25] MEDS ORDERED: ATORVASTATIN CA20 M1 PO (16:55)
[2017-12-25] MEDS ORDERED: METOPROLOL TART50 M1 PO (16:55)
[2017-12-25] MEDS ORDERED: SYNTHROID50 MCG PO (17:04)
[2017-12-25] MEDS ORDERED: GABAPENTIN300 M2 PO (17:04)
[2017-12-25] MEDS ORDERED: RISPERDAL1 M1 PO (17:04)
[2017-12-25] MEDS ORDERED: FLUOCINONIDE15 G1 TOP (17:04)
[2017-12-25] MEDS ORDERED: HYDROCHLOROTH12.5 M3 PO (17:04)
[2017-12-25] MEDS ORDERED: RISPERDAL25 MG/2 ML IM (17:04)
[2017-12-25] MEDS ORDERED: MELATONIN3 M4 PO (17:04)
[2017-12-25] MEDS ORDERED: DIVALPROEX SOD500 M2 PO (17:04)
[2017-12-25] MEDS ORDERED: RISPERIDONE3 M1 PO (17:04)
--- NOTE | 2017-12-25 17:19 | IP INCIDENTAL NOTE PSYCH ---
Incidental Note Notation: Unable to send [facility] Rx via Multichannel discharge process. eRx sent to [facility] [place] via [facility] for: morphine 15 mg immediate release tablet : Take 1 tablet by mouth three times a day Disp. 90 NR (last: 12/25/2017 ) by SPENCER started on: 12/25/2017 stop on: 01/24
--- NOTE | 2017-12-25 17:43 | Patient Discharge Instructions ---
Psych Discharge Inst General Discharge Information Reason for Admission: Tray delusions and psychosis, gravely disabled. 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 Hyperlipidemia Summary Tests/Major Procedures Lab ALT 15 U/L 11/23/17 1115 AST 11 U/L L 11/23/17 1115 Amylase 54 U/L 10/13/17 2231 BUN 25 mg/dL H 12/06/17 0645 BUN/Creatinine Ratio 50.0 % H 12/06/17 0645 Calcium 8.7 mg/dL 10/13/17 2231 Carbon Dioxide 30 mmol/L 12/06/17 0645 Chloride 101 mmol/L 12/06/17 0645 Cholesterol 256 MG/DL H 10/20/17 0607 Cholesterol/HDL Ratio 5 % H 10/20/17 0607 Creatinine 0.5 mg/dL 12/06/17 0645 Direct Bilirubin 0.4 mg/dL 11/23/17 1115 Estimated GFR > 60 ml/min 12/06/17 0645 Glucose 90 mg/dL 10/13/17 2231 HDL Cholesterol 52 mg/dL 10/20/17 0607 Hemoglobin A1c 6.6 % H 12/23/17 0630 LDL Cholesterol, Calc 170 mg/dL H 10/20/17 0607 Lipase 90 U/L 10/13/17 2231 Potassium 4.2 mmol/L 12/06/17 0645 Sodium 140 mmol/L 12/06/17 0645 TSH &T3 &Free T4 Intrp 3.440 uIU/mL 10/14/17 0906 TSH &T3 &Free T4 Intrp 3.520 uIU/mL 11/23/17 1115 Total Bilirubin 0.4 mg/dL 11/23/17 1115 Triglycerides 172 mg/dL H 10/20/17 0607 Gran % 40.0 % L 11/23/17 1115 Hct 41.3 % 11/23/17 1115 Hgb 13.4 G/DL 11/23/17 1115 MCHC 32.3 G/DL L 11/23/17 1115 Plt Count 187 /CUMM 11/23/17 1115 RDW 15.4 % H 11/23/17 1115 WBC 5.7 /CUMM 11/23/17 1115 Amphetamines Screen < 100 NG/ML 10/13/17 0015 Barbiturate Screen < 60 NG/ML 10/13/17 0015 Methadone Screen < 40 NG/ML 10/13/17 0015 Serum Alcohol < 10.0 MG/DL 10/14/17 0906 U Benzodiazepines Scrn < 85 NG/ML 10/13/17 0015 Ur Phencyclidine Scrn < 6.00 NG/ML 10/13/17 0015 Urine Cannabis Screen < 5.00 NG/ML 10/13/17 0015 Urine Cocaine Screen < 50 NG/ML 10/13/17 0015 Urine Opiates Screen < 100.00 NG/ML 10/13/17 0015 Valproic Acid 73.4 ug/mL 10/20/17 0607 Valproic Acid 68.7 ug/mL 10/27/17 0630 Valproic Acid 65.1 ug/mL 11/23/17 1115 Valproic Acid 59.7 ug/mL 12/23/17 0630 Ur Epithelial Cells MOD H 10/14/17 0015 Ur Leukocyte Esterase TRACE H 10/14/17 0015 Urinalysis HEAVY H 10/14/17 0015 Urine Bacteria MOD H 10/14/17 0015 Urine Clarity HAZY H 10/14/17 0015 Urine RBC RARE /HPF 10/14/17 0015 Urine WBC 10-15 /HPF H 10/14/17 0015 SERVICE DATE: 12/08/17- EXAM TYPE: US - US-DUPLEX VENOUS EXTREM UNI EXAMINATION: US TRIPLEX LOWER EXTREMITY, RIGHT CLINICAL INFORMATION: Right leg pain and swelling COMPARISON: None TECHNIQUE: Color-flow triplex imaging with spectral analysis and compression Doppler were performed on the lower extremity. FINDINGS: Respiratory variation, normal compression and augmented flow are noted throughout the lower extremity. The visualized common femoral vein, superficial femoral vein, profunda femoral vein, popliteal vein and midcalf peroneal and posterior tibial venous segments show no evidence of deep venous thrombosis. There is no Braswell's cyst. IMPRESSION: Normal triplex scan without evidence of deep venous thrombosis involving the lower extremity. ERVICE DATE: 12/03/17- EXAM TYPE: RAD - XRY-LUMBOSACRAL SPINE AP & LAT EXAMINATION: XR LUMBOSACRAL SPINE CLINICAL INFORMATION: Back pain. COMPARISON: CT abdomen and pelvis 10/14/2017 TECHNIQUE: 2 views of the lumbar spine were obtained. FINDINGS: Diffuse osteopenia. There are 5 nonrib-bearing lumbar-type vertebral bodies demonstrating normal vertebral body height and alignment. Multilevel degenerative changes are again noted throughout the lumbar spine. Vertebral augmentation changes are again seen at the L1, L3 and L4 vertebral bodies. Multiple old compression deformities are again noted including T7, T8, T9, L2 and L5. No acute fractures identified. Sacroiliac joints are symmetric. IMPRESSION: No acute osseous abnormality. Degenerative changes and chronic appearing compression fractures. SERVICE DATE: 12/02/17- EXAM TYPE: RAD - XRY-ANKLE 3 OR MORE VIEWS R; XRY-FOOT COMPLETE, R EXAMINATION: XR ANKLE, RIGHT XR FOOT, RIGHT CLINICAL INFORMATION: Pain and swelling. COMPARISON: None TECHNIQUE: 3 views right ankle, 3 views right foot, non-weightbearing. FINDINGS: ORIF changes with arthrodesis of the ankle joint. Distal tibia and fibula appears to be fused. The talus appears to be surgically absent. Diffuse soft tissue swelling especially medially. There is no evidence of any hardware failure. Fusion changes appear satisfactory. Marked soft tissue swelling dorsally about the midfoot. No bony lesions evident. No soft tissue gas. IMPRESSION: Marked soft tissue swelling. Arthrodesis changes appear satisfactory. No focal bony lesion acutely. SERVICE DATE: 10/29/17- EXAM TYPE: RAD - XRY-HUMERUS, LEFT EXAMINATION: XR HUMERUS, LEFT CLINICAL INFORMATION: Status post fall with pain in the left humerus. COMPARISON: There are no prior studies for comparison. TECHNIQUE: AP and lateral views of the left humerus. FINDINGS: The imaging is suboptimal with underpenetration which could obscure small or subtle cortical defects. The glenohumeral and acromioclavicular alignment appear to be maintained. The alignment of the elbow joint is suboptimally visualized, however no evidence of subluxation is noted. The proximal portion of the forearm is not well evaluated. No cortical defects are noted throughout the left humerus to suggest acute fracture. IMPRESSION: No radiographic evidence of acute fracture is is noted at this time, throughout the left humerus. SERVICE DATE: 10/13/17 EXAM TYPE: CAT - CT ABD & PELVIS W IV CONTRAST EXAMINATION: CT ABDOMEN AND PELVIS WITH CONTRAST CLINICAL INFORMATION: Bilateral lower abdominal pain. Tenderness. COMPARISON: CT scan pelvis August 17, 2017 TECHNIQUE: Multidetector volumetric imaging was performed of the abdomen and pelvis following IV administration of 95 mL of Optiray 320 intravenous contrast. Sagittal and coronal reformatted images were obtained on the technologist's workstation. DLP: 830.66 mGy-cm FINDINGS: LUNG BASES: The visualized lung bases are unremarkable. LIVER, GALLBLADDER, AND BILIARY TREE: The liver is normal in size, shape, and attenuation. No focal hepatic lesion or biliary ductal dilatation is present. The gallbladder is unremarkable with no evidence of radiopaque gallstones, gallbladder wall thickening, or obvious pericholecystic inflammatory changes. PANCREAS: Unremarkable. SPLEEN: Unremarkable. ADRENAL GLANDS: Unremarkable. KIDNEYS AND URETERS: The kidneys are normal in size, shape, and attenuation. No hydronephrosis, hydroureter, or calculi seen. No perinephric stranding. BLADDER: Unremarkable. GASTROINTESTINAL TRACT: Is diverticulosis of the sigmoid left colon. No diverticulitis. No acute change of the bowel. No bowel obstruction. No bowel wall thickening or edema. Moderate volume of stool throughout the colon. The appendix is not identified. There is no inflammation of the mesentery. Small bowel loops are unremarkable. ABDOMINAL WALL: Small fat-containing bilateral inguinal hernias. LYMPH NODES: Normal. VASCULAR: Atherosclerotic vascular wall calcifications throughout the abdomen and pelvis. PELVIC VISCERA: Uterus is absent. No adnexal abnormality. OSSEOUS STRUCTURES: Degenerative spondylosis of spine with multilevel disc height narrowing and endplate spurring and facet joint arthrosis. Patient's had prior thoracoplasty of L1 L3 and L4. There is compression deformities at multiple levels, L5, L2, T9, T8 and T7 . IMPRESSION: No acute change. There is diverticulosis of colon but no evidence of diverticulitis. EKG 10/13/17 showed baseline artifact/wander, sinus rhythm @ 88, no previoius tracing, normal EKG. QT 356. QTc 431. Studies Pending at AL: None. Patient Instructions Contact Information Your Psychiatrist on [facility] was Robert Pelayo MD * If you are experiencing an emergency related to this hospitalization, please call [phone] to contact the treating psychiatrist or the psychiatrist-on- call. * To Request a copy of your medical records, please contact the Medical Records Department at [phone]. * To request results of studies pending at the time of discharge, please call [phone]. * Continue your Medications until directed to stop by your Healthcare provider. General Medication Information Please continue to take your new medications and your continued home medications , unless otherwise indicated on your discharge medication list, or unless directed by your MD or SLOT HOST to stop them. Special Instructions Diet Diabetic Activity As Tolerated Other Inst/Recommendations See PCP for medical condx's, abnormal labs/imaging summarized above. - Tobacco Use Treatment Offered Post DC Medications Offered: Script Given-See Med List Post DC Tobacco Treatment Plan: [facility] Program Appt Date: 01/06/18 Program Appt Time: 1600 - EtOH/Drug Use D/O Treatment Offered Post DC Medications Offered: NA-No EtOH/Drug Use D/O Post DC EtOH/SubAbuse TX Plan: NA-No EtOH/Drug Use D/O Metabolic Screening () Not Applicable, patient not on a neuroleptic. OR () Patient on a neuroleptic(s) . Enter below results for Hemoglobin A1C, and lipid panel if obtained during the last 365 days. BMI: 32.100 Blood Pressure: 118/75 Laboratory Results From [facility] (If applicable): [x] Lab Cholesterol 256 MG/DL H 10/20/17 0607 Cholesterol/HDL Ratio 5 % H 10/20/17 0607 HDL Cholesterol 52 mg/dL 10/20/17 0607 Hemoglobin A1c 6.6 % H 12/23/17 0630 LDL Cholesterol, Calc 170 mg/dL H 10/20/17 0607 Triglycerides 172 mg/dL H 10/20/17 0607 Advance Directives Does the Patient have Medical Advance Directives No/Refused further info Does Pt have Psychiatric Advance Directives? No/Refused further info Does Patient have a Designated Surrogate Decision Maker: No Information About Psychiatric Advance Directives Provided? Unable to Comprehend Discharge Plan Post Hospital Treatment Plan: Will live at [facility]. Conservator of Person and Estate is Core Machine Tender Josh Gaines. Visiting nurse care through [facility]. [facility]
[2017-12-25 19:59] VITALS: BP 139/69
[2017-12-26 08:55] VITALS: BP 142/72
[2017-12-26 12:08] VITALS: BP 143/58
--- NOTE | 2017-12-26 14:37 | CP SOUTH PROGRESS NOTE PSYCH ---
Psych (Inpt) Progress Note Progress Note Include the following elements, when applicable: Involvement in the active treatment of the patient with behavioral observations of the patient and the patient's response to the treatment. Review of the ongoing treatment process in the context of the treatment plan. Indication of how multi-disciplinary staff members are carrying out the treatment plan. Plans for future interventions and recommendations for revision of the treatment plan. Liaison with other physicians/providers. Progress Note: Chart reviewed. Progress discussed with nursing staff. Interviewed patient this morning. She is known to me from previous weekends. Appears markedly improved since this MD last saw her (last month). Pleasant, largely cooperative, did not evidence any delusions in marked contrast to my last time seeing her. Perseverative about pain control however accepting of my telling her that I will not be changing her pain meds today. Appears quite pleased to be soon leaving the hospital. Vitals and labs reviewed. Findings are: mild hypertension. No new labs today. Mental status exam: Pleasant, cooperative, joking at times. Good eye contact. No abnormal movements. Speech wnl. Mood "ok". Affect euthymic. TP logical/linear. TC a bit preoccupied with pain mgmt. Denies SI/HI. Denies AVH. No delusions espoused. Cognition grossly intact. I/J fair (and markedly improved from last month) Assessment and plan: Continues to improve with plan for placement on Thursday. Continue current management as per primary team.
[2017-12-26 15:57] VITALS: BP 136/71
[2017-12-26 20:06] VITALS: BP 163/83
[2017-12-27 08:37] VITALS: BP 144/88
--- NOTE | 2017-12-27 10:50 | CP SOUTH PROGRESS NOTE PSYCH ---
Psych (Inpt) Progress Note Progress Note Include the following elements, when applicable: Involvement in the active treatment of the patient with behavioral observations of the patient and the patient's response to the treatment. Review of the ongoing treatment process in the context of the treatment plan. Indication of how multi-disciplinary staff members are carrying out the treatment plan. Plans for future interventions and recommendations for revision of the treatment plan. Liaison with other physicians/providers. Progress Note: Chart reviewed. Progress discussed with nursing staff. Interviewed patient this morning. She was observed pleasantly playing cards with another patient in the kitchen. However upon interview she became quite irritable and demanding of pain medications for her back, including flexeril. I informed her she was already on a number of pain meds and that she has not used naproxen, which she has available PRN, for over two weeks. She said "well I know that doesn't work for me." "So you're not going to give me any meds for pain? Ok, then we're done here. I hope I never see you again." Vitals and labs reviewed. Findings are: mild hypertension. No new labs today. Mental status exam: Generally appeared quite cheerful with good eye contact however became quite irritable. No abnormal movements. Speech wnl. Mood "terrible because I'm in pain". Affect dysphoric and irritable. TP perseverative. TC preoccupied with pain mgmt. Denies SI/HI. Denies AVH. No delusions espoused. Cognition grossly intact. I/J limited. Assessment and plan: Remains med seeking for pain however did not espouse delusions. Plan remains for placement thursday. Encourage use of PRN naproxen for pain management. Continue current management as per primary team.
[2017-12-27 12:32] VITALS: BP 143/77
[2017-12-27 16:28] VITALS: BP 144/78
[2017-12-27 19:52] VITALS: BP 137/82
[2017-12-28 07:45] VITALS: BP 140/92
[2017-12-28 08:14] VITALS: BP 140/92
--- NOTE | 2017-12-28 13:23 | SOCIAL WORKER PROG NOTE PSYCH ---
See Addendum Social Work Progress Note Progress Note Pt was in good spirits and prepared for discharge, she was anxious as can be expected denied si/hi/ah.vh. Faxed Referral(s) [facility] Documents sent: DARCY Instructions, Health Summary, W10 Faxed to: Ed Fax #: [phone] Faxed by: Rhonda Youngblood/ NIMISHA RN Date faxed: 12/28/17 Time Faxed: [phone] Faxed Referral(s) 2 Referred To: [facility] Transition of Care Documents sent: DARCY Instructions, Health Summary, W10 Faxed to: [facility] Fax #: [phone] Faxed by: Rhonda Youngblood Date faxed: 12/28/17 Time Faxed: [phone]
--- NOTE | 2017-12-28 13:29 | CP SOUTH PROGRESS NOTE PSYCH ---
Psych (Inpt) Progress Note Progress Note Include the following elements, when applicable: Involvement in the active treatment of the patient with behavioral observations of the patient and the patient's response to the treatment. Review of the ongoing treatment process in the context of the treatment plan. Indication of how multi-disciplinary staff members are carrying out the treatment plan. Plans for future interventions and recommendations for revision of the treatment plan. Liaison with other physicians/providers. Progress Note: Dr. Wasserman' notes reviewed. Case and treatment plan discussed in team meeting. Staff reports that the patient is status quo. Discharge is planned for 10 AM. Patient seen at 9:45 AM. Appears calm and euthymic. States "I'm fine, I've really always been fine. I was just mad." Reports mood as "I'm great." Rates sad mood and anxiety both 0/10. States "I'm use to change in my life." Denies feeling hopeless, helpless, worthless or guilty. Denies active and passive suicidal ideation. Denies homicidal ideation. Denies auditory and visual hallucinations. Denies paranoid ideation and magical kidd. Oriented 3. Describes sleep as wonderful. Reports appetite is too good. Energy is "very high, always high." States "I'm hypomanic." States she has never had a down. Tolerating medications but does not like Risperdal because she does not like to take psychiatric medication. Reports her back and right ankle always hurt. Claims she has daily morning diarrhea. Feels ready and safe for discharge. IMPRESSION: Condition improved. Okay for discharge today to [place]. Patient will have visiting nurse follow-up. Psychiatric care will most likely be with [facility].
--- NOTE | 2017-12-28 15:25 | DISCHARGE SUMMARY REPORT-PSYCH ---
Visit Information Visit Dates/Diagnosis' Admission Date: 10/16/17 Discharge Date: 12/28/17 Reason for Admission: Tray delusions and psychosis, gravely disabled. 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 Hyperlipidemia Hospital Course Significant Lab Findings: Lab ALT 15 U/L 11/23/17 1115 AST 11 U/L L 11/23/17 1115 Amylase 54 U/L 10/13/17 2231 BUN 25 mg/dL H 12/06/17 0645 BUN/Creatinine Ratio 50.0 % H 12/06/17 0645 Calcium 8.7 mg/dL 10/13/17 2231 Carbon Dioxide 30 mmol/L 12/06/17 0645 Chloride 101 mmol/L 12/06/17 0645 Cholesterol 256 MG/DL H 10/20/17 0607 Cholesterol/HDL Ratio 5 % H 10/20/17 0607 Creatinine 0.5 mg/dL 12/06/17 0645 Direct Bilirubin 0.4 mg/dL 11/23/17 1115 Estimated GFR > 60 ml/min 12/06/17 0645 Glucose 90 mg/dL 10/13/17 2231 HDL Cholesterol 52 mg/dL 10/20/17 0607 Hemoglobin A1c 6.6 % H 12/23/17 0630 LDL Cholesterol, Calc 170 mg/dL H 10/20/17 0607 Lipase 90 U/L 10/13/17 2231 Potassium 4.2 mmol/L 12/06/17 0645 Sodium 140 mmol/L 12/06/17 0645 TSH &T3 &Free T4 Intrp 3.440 uIU/mL 10/14/17 0906 TSH &T3 &Free T4 Intrp 3.520 uIU/mL 11/23/17 1115 Total Bilirubin 0.4 mg/dL 11/23/17 1115 Triglycerides 172 mg/dL H 10/20/17 0607 Gran % 40.0 % L 11/23/17 1115 Hct 41.3 % 11/23/17 1115 Hgb 13.4 G/DL 11/23/17 1115 MCHC 32.3 G/DL L 11/23/17 1115 Plt Count 187 /CUMM 11/23/17 1115 RDW 15.4 % H 11/23/17 1115 WBC 5.7 /CUMM 11/23/17 1115 Amphetamines Screen < 100 NG/ML 10/13/17 0015 Barbiturate Screen < 60 NG/ML 10/13/17 0015 Methadone Screen < 40 NG/ML 10/13/17 0015 Serum Alcohol < 10.0 MG/DL 10/14/17 0906 U Benzodiazepines Scrn < 85 NG/ML 10/13/17 0015 Ur Phencyclidine Scrn < 6.00 NG/ML 10/13/17 0015 Urine Cannabis Screen < 5.00 NG/ML 10/13/17 0015 Urine Cocaine Screen < 50 NG/ML 10/13/17 0015 Urine Opiates Screen < 100.00 NG/ML 10/13/17 0015 Valproic Acid 73.4 ug/mL 10/20/17 0607 Valproic Acid 68.7 ug/mL 10/27/17 0630 Valproic Acid 65.1 ug/mL 11/23/17 1115 Valproic Acid 59.7 ug/mL 12/23/17 0630 Ur Epithelial Cells MOD H 10/14/17 0015 Ur Leukocyte Esterase TRACE H 10/14/17 0015 Urinalysis HEAVY H 10/14/17 0015 Urine Bacteria MOD H 10/14/17 0015 Urine Clarity HAZY H 10/14/17 0015 Urine RBC RARE /HPF 10/14/17 0015 Urine WBC 10-15 /HPF H 10/14/17 0015 SERVICE DATE: 12/08/17- EXAM TYPE: US - US-DUPLEX VENOUS EXTREM UNI EXAMINATION: US TRIPLEX LOWER EXTREMITY, RIGHT CLINICAL INFORMATION: Right leg pain and swelling COMPARISON: None TECHNIQUE: Color-flow triplex imaging with spectral analysis and compression Doppler were performed on the lower extremity. FINDINGS: Respiratory variation, normal compression and augmented flow are noted throughout the lower extremity. The visualized common femoral vein, superficial femoral vein, profunda femoral vein, popliteal vein and midcalf peroneal and posterior tibial venous segments show no evidence of deep venous thrombosis. There is no Braswell's cyst. IMPRESSION: Normal triplex scan without evidence of deep venous thrombosis involving the lower extremity. ERVICE DATE: 12/03/17- EXAM TYPE: RAD - XRY-LUMBOSACRAL SPINE AP & LAT EXAMINATION: XR LUMBOSACRAL SPINE CLINICAL INFORMATION: Back pain. COMPARISON: CT abdomen and pelvis 10/14/2017 TECHNIQUE: 2 views of the lumbar spine were obtained. FINDINGS: Diffuse osteopenia. There are 5 nonrib-bearing lumbar-type vertebral bodies demonstrating normal vertebral body height and alignment. Multilevel degenerative changes are again noted throughout the lumbar spine. Vertebral augmentation changes are again seen at the L1, L3 and L4 vertebral bodies. Multiple old compression deformities are again noted including T7, T8, T9, L2 and L5. No acute fractures identified. Sacroiliac joints are symmetric. IMPRESSION: No acute osseous abnormality. Degenerative changes and chronic appearing compression fractures. SERVICE DATE: 12/02/17- EXAM TYPE: RAD - XRY-ANKLE 3 OR MORE VIEWS R; XRY-FOOT COMPLETE, R EXAMINATION: XR ANKLE, RIGHT XR FOOT, RIGHT CLINICAL INFORMATION: Pain and swelling. COMPARISON: None TECHNIQUE: 3 views right ankle, 3 views right foot, non-weightbearing. FINDINGS: ORIF changes with arthrodesis of the ankle joint. Distal tibia and fibula appears to be fused. The talus appears to be surgically absent. Diffuse soft tissue swelling especially medially. There is no evidence of any hardware failure. Fusion changes appear satisfactory. Marked soft tissue swelling dorsally about the midfoot. No bony lesions evident. No soft tissue gas. IMPRESSION: Marked soft tissue swelling. Arthrodesis changes appear satisfactory. No focal bony lesion acutely. SERVICE DATE: 10/29/17- EXAM TYPE: RAD - XRY-HUMERUS, LEFT EXAMINATION: XR HUMERUS, LEFT CLINICAL INFORMATION: Status post fall with pain in the left humerus. COMPARISON: There are no prior studies for comparison. TECHNIQUE: AP and lateral views of the left humerus. FINDINGS: The imaging is suboptimal with underpenetration which could obscure small or subtle cortical defects. The glenohumeral and acromioclavicular alignment appear to be maintained. The alignment of the elbow joint is suboptimally visualized, however no evidence of subluxation is noted. The proximal portion of the forearm is not well evaluated. No cortical defects are noted throughout the left humerus to suggest acute fracture. IMPRESSION: No radiographic evidence of acute fracture is is noted at this time, throughout the left humerus. SERVICE DATE: 10/13/17 EXAM TYPE: CAT - CT ABD & PELVIS W IV CONTRAST EXAMINATION: CT ABDOMEN AND PELVIS WITH CONTRAST CLINICAL INFORMATION: Bilateral lower abdominal pain. Tenderness. COMPARISON: CT scan pelvis August 17, 2017 TECHNIQUE: Multidetector volumetric imaging was performed of the abdomen and pelvis following IV administration of 95 mL of Optiray 320 intravenous contrast. Sagittal and coronal reformatted images were obtained on the technologist's workstation. DLP: 830.66 mGy-cm FINDINGS: LUNG BASES: The visualized lung bases are unremarkable. LIVER, GALLBLADDER, AND BILIARY TREE: The liver is normal in size, shape, and attenuation. No focal hepatic lesion or biliary ductal dilatation is present. The gallbladder is unremarkable with no evidence of radiopaque gallstones, gallbladder wall thickening, or obvious pericholecystic inflammatory changes. PANCREAS: Unremarkable. SPLEEN: Unremarkable. ADRENAL GLANDS: Unremarkable. KIDNEYS AND URETERS: The kidneys are normal in size, shape, and attenuation. No hydronephrosis, hydroureter, or calculi seen. No perinephric stranding. BLADDER: Unremarkable. GASTROINTESTINAL TRACT: Is diverticulosis of the sigmoid left colon. No diverticulitis. No acute change of the bowel. No bowel obstruction. No bowel wall thickening or edema. Moderate volume of stool throughout the colon. The appendix is not identified. There is no inflammation of the mesentery. Small bowel loops are unremarkable. ABDOMINAL WALL: Small fat-containing bilateral inguinal hernias. LYMPH NODES: Normal. VASCULAR: Atherosclerotic vascular wall calcifications throughout the abdomen and pelvis. PELVIC VISCERA: Uterus is absent. No adnexal abnormality. OSSEOUS STRUCTURES: Degenerative spondylosis of spine with multilevel disc height narrowing and endplate spurring and facet joint arthrosis. Patient's had prior thoracoplasty of L1 L3 and L4. There is compression deformities at multiple levels, L5, L2, T9, T8 and T7 . IMPRESSION: No acute change. There is diverticulosis of colon but no evidence of diverticulitis. EKG 10/13/17 showed baseline artifact/wander, sinus rhythm @ 88, no previoius tracing, normal EKG. QT 356. QTc 431. Course Complications: The patient reported a fall but there was no evidence of bony injury. The patient developed foot edema, worse on right. This was addressed with diuretic and compression stockings. The patient's hemoglobin A1c has risen over time. Risperdal can be associated with weight gain and worsening glucose control. The patient should have medical follow up for this issue. Consultations: The patient was seen by Dr. Bain and Dr. Marquez of the hospitalist service. The patient was frequently very somatic and pain-medication focussed. The patient was seen by comparison shopper, Dr. White. Allergies: Coded Allergies: Sulfa (Sulfonamide Antibiotics) (Severe, ANAPHYLAXIS 08/17/17) codeine (Severe, ANAPHYLAXIS 08/17/17) penicillin G (Severe, ANAPHYLAXIS 08/17/17) adhesive tape (RASH 10/13/17) amlodipine (RASH 10/16/17) Hospital Course/TX Response: The patient was monitored on the unit for safety and psychosis. 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 She continued to take Depakote for "seizures." She was on morphine 15 mg daily and a covering psychiatrist increased the dose to 15 mg t.i.d. because of persistent complaints of pain. Klonopin was continued at bedtime. The patient refused antipsychotic medication for weeks until a conservator with medication power was appointed. At that point, oral Risperdal with a backup of IM Haldol/Cogentin was ordered. The patient was subsequently started on Risperdal Consta and the patient should remain on both oral and Consta overlapping as scheduled per medication list below. Ultimately, oral Risperdal will stop after a total of 3 weeks of overlap. Psychosis/amrik both improved dramatically with the introduction of Risperdal. The patient was [facility]comm[facility] to a state hospital, but before a bed was located, the patient improved to the point where she could be discharged to [facility] a senior living in [place]. Progress note from date of discharge: Dr. Wasserman' notes reviewed. Case and treatment plan discussed in team meeting. Staff reports that the patient is status quo. Discharge is planned for 10 AM. Patient seen at 9:45 AM. Appears calm and euthymic. States "I'm fine, I've really always been fine. I was just mad." Reports mood as "I'm great." Rates sad mood and anxiety both 0/10. States "I'm use to change in my life." Denies feeling hopeless, helpless, worthless or guilty. Denies active and passive suicidal ideation. Denies homicidal ideation. Denies auditory and visual hallucinations. Denies paranoid ideation and magical kidd. Oriented 3. Describes sleep as wonderful. Reports appetite is too good. Energy is "very high, always high." States "I'm hypomanic." States she has never had a down. Tolerating medications but does not like Risperdal because she does not like to take psychiatric medication. Reports her back and right ankle always hurt. Claims she has daily morning diarrhea. Feels ready and safe for discharge. IMPRESSION: Condition improved. Okay for discharge today to [facility]. Patient will have visiting nurse follow-up. Psychiatric care will most likely be with [facility]. Discharge HBIPS - Tobacco Use Treatment Offered Post DC Medications Offered: Script Given-See Med List Post DC Tobacco Treatment Plan: Juan R Tobacco Tx Pgm Program Appt Date: 01/06/18 Program Appt Time: 1600 - EtOH/Drug Use D/O Treatment Offered Post DC Medications Offered: NA-No EtOH/Drug Use D/O Post DC EtOH/SubAbuse TX Plan: NA-No EtOH/Drug Use D/O Metabolic Screening - Screen if on a Neuroleptic Medication - Metabolic screening should include: - Blood Pressure, BMI, Glucose or Hgb A1c, & a - Lipid profile from within the past 365 days. Metabolic Screening () Not Applicable, patient not on a neuroleptic. OR () Patient on a neuroleptic(s) . Enter below results for Hemoglobin A1C, and lipid panel if obtained during the last 365 days. BMI: 32.100 Blood Pressure: 140/92 Laboratory Results From [facility] (If applicable): [x] Lab Cholesterol 256 MG/DL H 10/20/17 0607 Cholesterol/HDL Ratio 5 % H 10/20/17 0607 HDL Cholesterol 52 mg/dL 10/20/17 0607 Hemoglobin A1c 6.2 % H 10/20/17 0607 Hemoglobin A1c 6.6 % H 12/23/17 0630 LDL Cholesterol, Calc 170 mg/dL H 10/20/17 0607 Triglycerides 172 mg/dL H 10/20/17 0607 Discharge Instructions General Discharge Information Multiple Neuroleptics: ([x]) Not Applicable OR Document below three failed attempts at monotherapy, or a plan to taper to monotherapy, or augmentation of Clozapine. () Discharge Diet Diabetic Discharge Activity As Tolerated DC Disposition: [facility] in [place]. Referrals Ordered Referrals Provider Referral For Groups: [[facility] [address]#[phone] Provider Referral For Groups: [[facility]] [facility] - VISITING NURSE #[phone] Prescriptions Stop taking the following medications: Oxycodone HCl/Acetaminophen (Percocet 5-325 MG Tablet) 5 MG-325 MG TABLET ORAL TWICE DAILY as needed for pain Qty = 10 Dicyclomine Hydrochloride (Bentyl) 10 MG CAPSULE ORAL THREE TIMES DAILY as needed for pain Qty = 12 Ondansetron (Zofran Odt) 4 MG TAB.RAPDIS SUBLINGUAL THREE TIMES DAILY as needed for nausea Qty = 10 Hydroxyzine HCl (hydrOXYzine HCl) 25 MG TABLET ORAL Every night as needed for INSOMNIA Qty = 10 Continue taking these medications: Fluocinonide (Fluocinonide) 0.05 % OINT...G. 1 Application On the skin TWICE DAILY Qty = 1 Instructions: apply to affected area(s) Comments: Last Taken:12/23/17 Time:8pm This prescription has been renewed Start taking the following new medications: Diphenhydramine HCl (Diphenhydramine HCl) 50 MG CAPSULE 1 Capsule ORAL THREE TIMES DAILY as needed for NASAL CONGESTION Qty = 90 No Refills Comments: Last Taken:12/28/17 Time:8am Albuterol Sulfate (Ventolin Hfa) 90 MCG HFA.AER.AD 2 Puff Inhale through mouth EVERY SIX HOURS NEEDED as needed for asthma Qty = 1 No Refills Comments: Last Taken:12/27/17 Time:11am Nicotine (Nicorelief) 2 MG GUM 1 Gum ORAL EVERY 2 HOURS NEEDED as needed for nicotine craving Qty = 120 No Refills Comments: Last Taken:12/27/17 Time:1pm Atorvastatin Calcium (Atorvastatin Calcium) 20 MG TABLET 1 Tablet ORAL 5 PM Qty = 30 No Refills Comments: Last Taken:12/27/17 Time:6pm Divalproex Sodium (Divalproex Sodium) 500 MG TABLET.DR 1 Tablet ORAL 0800,1400,2000 Qty = 90 No Refills Comments: Last Taken:12/28/17 Time:8am Gabapentin (Gabapentin) 300 MG CAPSULE 300 Milligram ORAL 0800,1400,2000 Qty = 90 No Refills Comments: Last Taken:12/28/17 Time:8am Risperidone (Risperdal) 1 MG TABLET 1 Milligram ORAL DAILY @8 AM Qty = 9 No Refills Instructions: Stop after 01/06/18 Comments: Last Taken:12/28/17 Time:8am Risperidone (Risperidone) 3 MG TABLET 1 Tablet ORAL 1999 Qty = 10 No Refills Instructions: stop after 01/06/18 Comments: Last Taken:12/27/17 Time:8pm Risperidone Microspheres (Risperdal Consta) 25 MG/2 ML SYRINGE 25 Milligram INTRAMUSC EVERY 2 WEEKS Qty = 2 No Refills Instructions: due on 12/30/17 Comments: Last Taken:12/16/17 Time:1pm Hydrochlorothiazide (Hydrochlorothiazide) 12.5 MG CAPSULE 1 Capsule ORAL DAILY Qty = 30 No Refills Comments: Last Taken:12/26/17 Time:8am Levothyroxine Sodium (Synthroid) 50 MCG TABLET 1 Tablet ORAL DAILY BEFORE BREAKFAST Qty = 30 No Refills Comments: Last Taken:12/28/17 Time:7am Melatonin (Melatonin) 3 MG TABLET 1 Tablet ORAL AT BEDTIME Qty = 30 No Refills Comments: Last Taken:12/27/17 Time:8pm Clonazepam (Klonopin) 0.5 MG TABLET 3 Tablet ORAL AT BEDTIME Qty = 90 No Refills Comments: Last Taken:12/27/17 Time:8pm The following medications have been changed: Old: Metoprolol Tartrate (Metoprolol Tartrate) 50 MG TABLET 50 Milligram ORAL TWICE DAILY Qty = 60 New: Metoprolol Tartrate (Metoprolol Tartrate) 50 MG TABLET 1 Tablet ORAL TWICE DAILY Qty = 60 Comments: Last Taken:12/28/17 Time:8am Other Inst/Recommendations See PCP for medical condx's, abnormal labs/imaging summarized above. Studies Pending at Discharge None. Copies To: [facility]*
== END 2017-12-28 11:39 | DRG 885 ==
LOC: ERH 18:07 → ERHI 10-16 13:50 → CP SOUTH 10-16 13:50 → ENTRNSPT 10-16 15:58 → EDTRNSPTSTS 10-16 16:12 → EDTRNSPT 10-16 16:12 → CP SOUTH 10-16 16:16 → CMPTRNSPT 10-16 16:27 → CP SOUTH 10-16 18:07 → ENRESERV 10-16 23:59 → CP SOUTH 10-19 10:18
PROVIDERS: Physician Assistant Medical; Psychiatry & Neurology Psychiatry
DX: F31.89 Other bipolar disorder (principal); E03.9 Hypothyroidism, unspecified; I10 Essential (primary) hypertension; Z85.41 Personal history of malignant neoplasm of cervix uteri; Z86.19 Personal history of other infectious and parasitic diseases; M54.9 Dorsalgia, unspecified
CPT/HCPCS: 36415; 72100; 73060-LT; 73610-RT; 73630-RT; 74177; 80307; 81001; 82436; 93005; 93010; G0463; G0480; J0515; J1630; J3490